=== PATIENT | female | born 1960 | race Caucasian/White ===

== ENCOUNTER 2018-01-02 14:02 | Emergency (ER) | payer OTHER, SELFPAY ==
[2018-01-02 14:04] VITALS: BP 168/89; PULSE 89; RESP 16; TEMP 37.4; O2SAT 100; BMI 22.9
--- NOTE | 2018-01-02 14:14 | CT_ITS ---
STUDY: CT ABDOMEN AND PELVIS WITHOUT CONTRAST REASON FOR EXAM: Female, 57 years old. Epigastric pain. RADIATION DOSAGE (If Supplied By Facility): CTDIvol = ( 6.96 ) mGy, DLP = ( 328.78 ) mGycm TECHNIQUE: Transaxial images were obtained from the dome of the diaphragm to the symphysis pubis without oral contrast, and without intravenous contrast. Sagittal and coronal images were reconstructed. Individualized dose optimization techniques were used for this CT. COMPARISON: None. FINDINGS: The visualized lung bases are unremarkable. The visualized portions of the heart are within normal limits. Normal liver. Normal gallbladder and extrahepatic biliary system. Normal spleen. Normal pancreas. Normal bilateral adrenal glands. Normal right kidney. Normal left kidney. Normal visualized stomach. Normal small intestine. Normal colon. There are surgical clips in the region of the appendix consistent with a prior appendectomy. Normal abdominal aorta. Normal inferior vena cava. Normal retroperitoneum. Normal urinary bladder. Normal abdominal wall. There are diffuse degenerative changes of the visualized lumbar spine. CT/Abdomen/Pelvis without Cont IMPRESSION: No acute intra-abdominal process. Electronically Signed: Kathrine Carmichael MD at 15:22 EDT Tel , Service support ,
[2018-01-02 14:18] VITALS: BP 160/77; PULSE 92; RESP 20; TEMP 36.9; O2SAT 100
--- NOTE | 2018-01-02 14:34 | EKG12_ITS ---
Test Reason : AB PAIN Blood Pressure : / mmHG Vent. Rate : 075 BPM Atrial Rate : 075 BPM P-R Int : 140 ms QRS Dur : 092 ms QT Int : 408 ms P-R-T Axes : 074 060 056 degrees QTc Int : 455 ms Normal sinus rhythm Normal ECG Confirmed by SONIA MOYA, FAHEEM ([id number]), production editor ALLISON GANNON ([id number]) on 01/04/2018 1:32:36 PM Referred By: Confirmed By:FAHEEM SCOTT MD
[2018-01-02 14:46] LABS: Absolute Lymphocyte Count 1.78 X10^3/ul (0.83-4.51); Absolute Neutrophil Count 3.6 X10^3/uL (2.0-7.7); Basophil# 0.05 X10^3/uL; Basophil% 0.8 % (0-1); Eosinophil# 0.06 X10^3/uL; Hematocrit 43.3 % (37-47); Hemoglobin 14.9 g/dl (12.0-15.0); Lymphocyte # 1.78 X10^3/ul (4.0); Lymphocyte % 28.8 % (19-41); Mean Corp Hgb Conc 34.4 g/gl (32-36); Mean Corpuscular Hgb 31.8 pg (27.0-32.0); Mean Corpuscular Volume 92.3 fL (81-99); Mean Platelet Vol. 9.3 fl (6.2-12.0); Monocyte# 0.68 X10^3/uL; Neutrophil % 58.2 % (47-70); Platelet Count 339 K/mm3 (150-450); RBC Distribution Width CV 12.1 % (11.6-14.6); RBC Distribution Width SD 40.4 fl (35.1-43.9); Red Blood Count 4.69 M/mm3 (4.2-5.4); White Blood Count 6.2 K/mm3 (4.4-11.0)
[2018-01-02 14:50] LABS: POSITIVE COUNT NO; POSITIVE DIFFERENTIAL NO; POSITIVE MORPHOLOGY NO
--- NOTE | 2018-01-02 14:51 | ED.VISSUMM ---
- ER Visit Summary Date of Service: 01/02/18 Chief Complaint: [] Upper abdominal pain for over a week palpitations History of Present Illness: The patient is a 57 F [] she reports really no past medical history she indicates for about a week she has had upper abdominal discomfort when she gets the pain she feels palpitations feels a pressure in her epigastric area nothing makes the pain better or worse, she was seen at an [facility] emergency department about 1 week to 10 days ago the workup that was unremarkable, she felt her family physician there was some concern she might be suffering from stress she started on Xanax, the persistence of this pressure since that occurred and began, today she had a second intensification of the pressure she felt as if her heart was racing the Xanax did not help and she came to the emergency department. She has had nausea but no vomiting no fever no cough no chest pain abdominal abdominal pain otherwise, normal bowel bladder habits. No leg edema she has no history of ME PE or DVT or other GI elements, This report 30 years ago she was diagnosed with her pancreatitis or an ulcer She is very healthy she indicates she can exert herself quite heavily and never gets abdominal pain or chest pain or palpitations Physical Examination: [] Her vital signs are within normal range is temperature of 99 she points to the epigastric area as a focus of her pain head neck chest unremarkable the lungs are clear the abdomen soft there is a vague discomfort to the epigastric area and urban guarding organomegaly the back upper lower extremities unremarkable pulses are symmetric in heart tones are normal lungs are clear neurologically she is awake moving all 4 she indicates she does not feel as if she is under stress she does not feel nervous Test Results: [] Emergency Department Course and Treatment: [] The patient's lab studies and CT abdomen UA are all generally unremarkable please see those reports on reevaluation she remained stable here in the department EKG shows a sinus rhythm she said really no recurrence of explained to this pressure in the epigastric area is unexplained she has had it for over a week there is no signs of elevation of any of the cardiac enzymes normal EKG normal lab studies and CT, she has no her history of exertional chest pain angina CAD Is comfortable discharge home, we will start her on antacid Prilosec bland diet recommended she follow back up with her family physician for further management and to return for change in symptoms and she will do so Treatment Plan: [] Disposition: [] Home stable Impression: [] Epigastric pressure for a week etiology unclear This note was generated with [employer] dictation software. It may contain incorrect words, spelling, and punctuation that were not noted in review of the chart prior to signing ED Disposition - Plan for ED Patient: Chief Complaint: Abd Pain Referrals: Jennifer Pittman MD [Primary Care Provider] -
[2018-01-02 14:54] LABS: Bacteria 0 SEEN /hpf (None Seen); Mucous, Urine 0 SEEN /hpf (<or=2+); Red Blood Cells-Urine 0 SEEN /hpf (0-5); White Blood Cells 0 SEEN /hpf (0-5)
[2018-01-02 15:03] LABS: Color, Urine Yellow (Yellow); Glucose, Dipstick Normal (Normal); Ketone-Dipstick 50 mg/dl (Negative); Leukocyte Esterase-Dipstick 25 /ul (Negative); Nitrite-Dipstick Negative (Negative); Occult Blood-Urine Negative /ul (Negative); Protein-Dipstick Negative (Negative); Urine Bilirubin Dipstick Negative (Negative); Urine Clarity Clear (Clear); Urine Urobilinogen Normal (Normal)
[2018-01-02 15:08] LABS: AST(SGOT) 16 U/L (15-37); Alanine Aminotransfer ALT/SGPT 23 U/L (13-56); Albumin, Serum 4.5 g/dL (3.2-5.0); Alkaline Phosphatase 91 U/L (45-117); Anion Gap 10 (5-15); BUN 13 mg/dL (7-18); BUN/Creat Ratio 13.6 RATIO (10-20); Bilirubin, Direct 0.16 mg/dL (0.00-0.30); Calcium,Total 9.2 mg/dL (8.5-10.1); Chloride 105 mmol/L (98-107); Creatinine, Serum 0.96 mg/dL (0.55-1.02); EST Glomerular Filtration Rate 64 mL/min (>60); Est Glom Filt Rate - Afr Amer 77 mL/min (>60); Estimated Creatinine Clearance 64.44 ml/min; Globulin 4.1 g/dL (2.2-4.2); Glucose 98 mg/dL (74-106); Lipase 221 U/L (73-393); Potassium 3.2 mmol/L (3.5-5.1); Protein, Total 8.6 g/dL (6.4-8.2); Sodium Level 138 mmol/L (136-145)
[2018-01-02] MEDS: Ondansetron 4 MG/2 ML Vial IV (15:12)
[2018-01-02 15:20] LABS: Squamous Epithelial Cells - UA 0-5 SEEN /hpf (5-10)
[2018-01-02] MEDS: morphine 8 MG/ML Syringe IV (15:25)
[2018-01-02] MEDS: 0.9% Normal Saline 1,000 ML 125 ML IV (15:26)
--- NOTE | 2018-01-02 15:43 | ED.DEP ---
ED Disposition - Plan for ED Patient: Chief Complaint: Abd Pain Instructions: ED Abdominal Pain Unkn Cause, ED PUD Vs Gastritis Prescriptions: Omeprazole [Prilosec] 20 mg PO DAILY #30 cap Referrals: Jennifer Pittman MD [Primary Care Provider] -
== END 2018-01-02 16:24 | disposition home or self-care (01) ==
PROVIDERS: Emergency Provider Emergency Medicine; Family Provider Internal Medicine; PCP Internal Medicine
DX: R10.9 Unspecified abdominal pain (principal); R05 Cough
CPT/HCPCS: 74176; 80048; 80076; 81001; 83690; 84484; 85025; 93005; 96361; 96374; 96375; 99283; J2405

== ENCOUNTER 2018-01-06 09:13 | Emergency (ER) | payer OTHER, SELFPAY ==
[2018-01-06 09:14] VITALS: BP 152/83; PULSE 87; RESP 22; TEMP 36.4; O2SAT 98; BMI 23.8
--- NOTE | 2018-01-06 09:22 | ED.DCSUM_ITS ---
- ER Visit Summary Date of Service: 01/06/18 Chief Complaint: Chest pain/epigastric pain History of Present Illness: The patient is a 57 F who has lower chest pain and epigastric pain. She states it started today. She was getting fasting blood glucose performed at the [facility] outpatient facility. She then developed a squeezing and tightness in her epigastric area. She states she does feel associated shortness of breath with it. Initially it was a 10 out of 10 but after EMS administration of aspirin is now doing a 6 out of 10. She was seen here last week for the same symptoms. She states that they went away since then but returned this morning. She had a negative CT and laboratories at that time. She was placed on Prilosec. Physical Examination: Vital signs reviewed. HEENT exam unremarkable. Heart is regular rate and rhythm without murmurs. Lungs are clear to auscultation. Abdomen is soft epigastric tenderness to palpation. Extremities reveal no edema. Skin exam normal. Neurologic exam normal. Test Results: EKG is sinus rhythm with a rate of 92. No ST changes. Labs are unremarkable Emergency Department Course and Treatment: Patient was given aspirin by EMS. I gave her a GI cocktail and she is starting to feel better. At one point she stated that she was dizzy and she could not walk to the bathroom so she is the bedside commode. I then reevaluated her after this and she states that she feels better. I will add Carafate to her Prilosec. This could be an ulcer. However this could be anxiety related. The patient will need follow-up with her PCP Treatment Plan: [] Disposition: Discharge Impression: Epigastric abdominal pain This note was generated with [employer] dictation software. It may contain incorrect words, spelling, and punctuation that were not noted in review of the chart prior to signing ED Disposition - Plan for ED Patient: Chief Complaint: Chest Pain Referrals: Jennifer Pittman MD [Primary Care Provider] -
[2018-01-06 09:35] LABS: Absolute Lymphocyte Count 0.93 X10^3/ul (0.83-4.51); Absolute Neutrophil Count 2.6 X10^3/uL (2.0-7.7); Basophil# 0.03 X10^3/uL; Basophil% 0.8 % (0-1); Eosinophil# 0.06 X10^3/uL; Eosinophils% 1.5 % (0-5); Hematocrit 44.2 % (37-47); Hemoglobin 14.7 g/dl (12.0-15.0); Lymphocyte # 0.93 X10^3/ul (4.0); Lymphocyte % 23.5 % (19-41); Mean Corp Hgb Conc 33.3 g/gl (32-36); Mean Corpuscular Hgb 31.3 pg (27.0-32.0); Mean Corpuscular Volume 94.2 fL (81-99); Mean Platelet Vol. 9.1 fl (6.2-12.0); Monocyte# 0.31 X10^3/uL; Monocyte% 7.8 % (0-10); Neutrophil # 2.63 X10^3/uL (2.7-7.7); Neutrophil % 66.4 % (47-70); POSITIVE COUNT NO; POSITIVE DIFFERENTIAL NO; POSITIVE MORPHOLOGY NO; Platelet Count 303 K/mm3 (150-450); RBC Distribution Width CV 12.4 % (11.6-14.6); RBC Distribution Width SD 42.5 fl (35.1-43.9); Red Blood Count 4.69 M/mm3 (4.2-5.4)
[2018-01-06 09:51] LABS: ALB/GLOB Ratio 1.2 RATIO (0.9-2.4); AST(SGOT) 15 U/L (15-37); Alanine Aminotransfer ALT/SGPT 23 U/L (13-56); Albumin, Serum 4.4 g/dL (3.2-5.0); Alkaline Phosphatase 84 U/L (45-117); Anion Gap 10 (5-15); BUN 12 mg/dL (7-18); Calcium,Total 9.4 mg/dL (8.5-10.1); Chloride 105 mmol/L (98-107); Creatinine, Serum 1.09 mg/dL (0.55-1.02); EST Glomerular Filtration Rate 55 mL/min (>60); Est Glom Filt Rate - Afr Amer 66 mL/min (>60); Estimated Creatinine Clearance 56.75 ml/min; Globulin 3.8 g/dL (2.2-4.2); Glucose 158 mg/dL (74-106); Lipase 332 U/L (73-393); Potassium 3.8 mmol/L (3.5-5.1); Protein, Total 8.2 g/dL (6.4-8.2); Sodium Level 142 mmol/L (136-145)
--- NOTE | 2018-01-06 10:18 | ED.DEP ---
ED Disposition - Plan for ED Patient: Disposition: Home or Assisted Living Chief Complaint: Chest Pain Instructions: ED Epigastric Pain UKO Prescriptions: Sucralfate [Carafate] 1 gm PO 4X/DAY #60 tab Referrals: Jennifer Pittman MD [Primary Care Provider] -
[2018-01-06 11:22] VITALS: BP 124/69; PULSE 78; RESP 18; O2SAT 96
== END 2018-01-06 11:37 | disposition home or self-care (01) ==
PROVIDERS: Emergency Provider Emergency Medicine; Family Provider Internal Medicine; PCP Internal Medicine
DX: R10.13 Epigastric pain (principal); J45.909 Unspecified asthma, uncomplicated; R07.9 Chest pain, unspecified; R06.00 Dyspnea, unspecified
CPT/HCPCS: 80053; 83690; 84484; 85025; 93005; 99285; J7030; A4216

== ENCOUNTER 2018-01-10 10:26 | Emergency (ER) | payer OTHER, SELFPAY ==
[2018-01-10 10:30] VITALS: BP 170/95; PULSE 95; RESP 13; TEMP 36.9; O2SAT 100; BMI 24.5
--- NOTE | 2018-01-10 10:49 | ED.VISSUMM ---
- ER Visit Summary Date of Service: 01/10/18 Chief Complaint: Abdominal pain History of Present Illness: The patient is a 57 F who presents with epigastric abdominal pain that has been intermittent for the past 2 weeks. Patient states the pain became worse again today. Patient describes the pain as a pressure over the epigastric area. Patient states the pain radiates into her back. Patient describes the pain in her back as sharp. Patient denies any nausea or vomiting. Patient states she did have an episode of diarrhea today. Patient denies any melena or hematochezia. Patient is been seen 2 other times for this in the past 2 weeks in the emergency department. Patient was started on Prilosec and Carafate. Patient states that her pain does not come on with food. Patient states nothing seems to make it better or worse. Patient states she has been unable to follow-up with her primary care physician yet. Patient states she has an appointment tomorrow with her primary care physician. Physical Examination: Vital signs are stable. Patient is afebrile. Patient is in no acute distress. Oral mucosa is pink and moist. Neck is supple. Trachea is midline. There is no JVD noted. Heart was regular rate and rhythm. Lungs are clear and equal bilateral. There is good respiratory effort noted. Abdomen is soft. Bowel sounds are normal. There is diffuse tenderness but worse over the epigastric area. There is no rebound or guarding noted. Cranial nerves II through XII are intact. There are no focal motor or sensory deficits noted. The remaining physical exam is within normal limits. Test Results: CBC, comprehensive metabolic profile, lipase, and urinalysis were obtained were all within normal limits. Emergency Department Course and Treatment: Patient was given a GI cocktail and Ativan here in the emergency department. Patient felt better on reevaluation. Patient was instructed to follow-up with her primary care physician tomorrow as scheduled. Patient and understood and were agreeable with the plan. All questions were answered. Disposition: Discharge home Impression: Abdominal pain This note was generated with [employer] dictation software. It may contain incorrect words, spelling, and punctuation that were not noted in review of the chart prior to signing ED Disposition - Plan for ED Patient: Disposition: Home or Assisted Living Chief Complaint: Abd Pain Diagnosis: Epigastric abdominal pain of unknown etiology Instructions: ED Abdominal Pain Unkn Cause Referrals: Jennifer Pittman MD [Primary Care Provider] -
[2018-01-10] MEDS: Morphine 4 MG/ML Syringe IV (10:53)
[2018-01-10] MEDS: 0.9% Normal Saline 1,000 ML 1000 ML IV (10:53)
[2018-01-10] MEDS: Ondansetron 4 MG/2 ML Vial IV (10:54)
[2018-01-10 10:57] LABS: Bacteria 0 SEEN /hpf (None Seen); Mucous, Urine 0 SEEN /hpf (<or=2+); Red Blood Cells-Urine 0 SEEN /hpf (0-5); Squamous Epithelial Cells - UA 0 SEEN /hpf (5-10); White Blood Cells 0 SEEN /hpf (0-5)
[2018-01-10 10:59] LABS: Color, Urine Straw (Yellow); Glucose, Dipstick Normal (Normal); Ketone-Dipstick Negative (Negative); Leukocyte Esterase-Dipstick Negative /ul (Negative); Nitrite-Dipstick Negative (Negative); Occult Blood-Urine Negative /ul (Negative); Protein-Dipstick Negative (Negative); Urine Bilirubin Dipstick Negative (Negative); Urine Clarity Clear (Clear); Urine Urobilinogen Normal (Normal)
[2018-01-10 11:01] LABS: Absolute Lymphocyte Count 0.97 X10^3/ul (0.83-4.51); Absolute Neutrophil Count 2.8 X10^3/uL (2.0-7.7); Basophil# 0.06 X10^3/uL; Basophil% 1.4 % (0-1); Eosinophil# 0.07 X10^3/uL; Eosinophils% 1.6 % (0-5); Lymphocyte # 0.97 X10^3/ul (4.0); Lymphocyte % 22.4 % (19-41); Mean Corpuscular Hgb 31.8 pg (27.0-32.0); Mean Corpuscular Volume 93.4 fL (81-99); Mean Platelet Vol. 9.2 fl (6.2-12.0); Monocyte# 0.47 X10^3/uL; Monocyte% 10.9 % (0-10); Neutrophil # 2.75 X10^3/uL (2.7-7.7); Neutrophil % 63.5 % (47-70); Platelet Count 328 K/mm3 (150-450); RBC Distribution Width CV 12.2 % (11.6-14.6); Red Blood Count 5.03 M/mm3 (4.2-5.4); White Blood Count 4.3 K/mm3 (4.4-11.0)
[2018-01-10 11:02] LABS: POSITIVE COUNT NO; POSITIVE DIFFERENTIAL NO; POSITIVE MORPHOLOGY NO
[2018-01-10 11:16] VITALS: BP 159/83; PULSE 93; RESP 22; O2SAT 100
[2018-01-10 11:22] LABS: ALB/GLOB Ratio 1.1 RATIO (0.9-2.4); AST(SGOT) 17 U/L (15-37); Alanine Aminotransfer ALT/SGPT 22 U/L (13-56); Albumin, Serum 4.7 g/dL (3.2-5.0); Alkaline Phosphatase 95 U/L (45-117); Anion Gap 10 (5-15); BUN 11 mg/dL (7-18); BUN/Creat Ratio 10.8 RATIO (10-20); Calcium,Total 9.8 mg/dL (8.5-10.1); Chloride 107 mmol/L (98-107); Creatinine, Serum 1.02 mg/dL (0.55-1.02); EST Glomerular Filtration Rate 59 mL/min (>60); Est Glom Filt Rate - Afr Amer 71 mL/min (>60); Estimated Creatinine Clearance 60.65 ml/min; Globulin 4.3 g/dL (2.2-4.2); Glucose 104 mg/dL (74-106); Lipase 354 U/L (73-393); Potassium 3.5 mmol/L (3.5-5.1); Sodium Level 141 mmol/L (136-145)
[2018-01-10] MEDS: Mag Hydrox/Al Hydrox/Simeth 30 ML UDC PO (12:07)
[2018-01-10] MEDS: LORazepam 2 MG/ML Syringe 0.5 MG IV (12:08)
[2018-01-10 12:09] VITALS: BP 153/82; PULSE 75; RESP 18; O2SAT 98
[2018-01-10 14:26] VITALS: BP 135/72; PULSE 79; RESP 12; O2SAT 98
== END 2018-01-10 14:28 | disposition home or self-care (01) ==
PROVIDERS: Emergency Provider Emergency Medicine; Family Provider Internal Medicine; PCP Internal Medicine
DX: R10.13 Epigastric pain (principal); M54.9 Dorsalgia, unspecified; J45.909 Unspecified asthma, uncomplicated
CPT/HCPCS: 80053; 81001; 83690; 85025; 93005; 99285; J7030; A4216; J2405

== ENCOUNTER 2018-01-10 18:20 | Emergency (ER) | payer OTHER, SELFPAY ==
[2018-01-10 18:21] VITALS: BP 145/74; PULSE 100; RESP 22; TEMP 36.6; O2SAT 100; BMI 22.3
[2018-01-10] MEDS: 0.9% Normal Saline 1,000 ML 150 ML IV (18:42)
[2018-01-10] MEDS: Mag Hydrox/Al Hydrox/Simeth 30 ML UDC PO (18:42)
[2018-01-10 18:48] LABS: Absolute Lymphocyte Count 1.76 X10^3/ul (0.83-4.51); Absolute Neutrophil Count 3.5 X10^3/uL (2.0-7.7); Basophil# 0.03 X10^3/uL; Basophil% 0.5 % (0-1); Eosinophil# 0.06 X10^3/uL; Hematocrit 41.7 % (37-47); Hemoglobin 13.9 g/dl (12.0-15.0); Lymphocyte # 1.76 X10^3/ul (4.0); Lymphocyte % 29.5 % (19-41); Mean Corp Hgb Conc 33.3 g/gl (32-36); Mean Corpuscular Hgb 31.3 pg (27.0-32.0); Mean Corpuscular Volume 93.9 fL (81-99); Monocyte# 0.62 X10^3/uL; Monocyte% 10.4 % (0-10); Neutrophil % 58.6 % (47-70); Platelet Count 294 K/mm3 (150-450); RBC Distribution Width CV 12.4 % (11.6-14.6); RBC Distribution Width SD 42.8 fl (35.1-43.9); Red Blood Count 4.44 M/mm3 (4.2-5.4)
[2018-01-10 18:49] LABS: POSITIVE COUNT NO; POSITIVE DIFFERENTIAL NO; POSITIVE MORPHOLOGY NO
[2018-01-10 19:09] LABS: ALB/GLOB Ratio 1.2 RATIO (0.9-2.4); AST(SGOT) 15 U/L (15-37); Alanine Aminotransfer ALT/SGPT 21 U/L (13-56); Alkaline Phosphatase 76 U/L (45-117); Anion Gap 13 (5-15); BUN 11 mg/dL (7-18); BUN/Creat Ratio 10.7 RATIO (10-20); Calcium,Total 8.8 mg/dL (8.5-10.1); Chloride 108 mmol/L (98-107); Creatinine, Serum 1.03 mg/dL (0.55-1.02); EST Glomerular Filtration Rate 58 mL/min (>60); Est Glom Filt Rate - Afr Amer 71 mL/min (>60); Estimated Creatinine Clearance 60.06 ml/min; Globulin 3.4 g/dL (2.2-4.2); Glucose 123 mg/dL (74-106); Lipase 297 U/L (73-393); Potassium 3.7 mmol/L (3.5-5.1); Protein, Total 7.4 g/dL (6.4-8.2); Sodium Level 144 mmol/L (136-145)
[2018-01-10] MEDS: LORazepam 2 MG/ML Syringe 0.5 MG IV (19:15)
[2018-01-10 20:00] VITALS: BP 154/85; PULSE 80; RESP 14; O2SAT 97
--- NOTE | 2018-01-10 20:41 | ED.VISSUMM ---
- ER Visit Summary Date of Service: 01/10/18 Chief Complaint: Chest, epigastric pain History of Present Illness: The patient is a 57 F with a 2 week history of epigastric pain. This is her fourth visit to this emergency room for the same. This is her second visit today. Patient states that she gets epigastric pain followed by a tingling sensation from her feet of her body. She is scheduled to see her PCP tomorrow and a GI specialist at the end of the month. Patient has had prior blood work as well as abdominal CAT scans with no significant cause for her pain. Patient will sometimes improve with GI cocktail, but often does require anxiety medication. Patient reportedly was on Xanax at one time but had an episode while on Xanax so her nurse told her to stop it. She was also previously placed on Carafate but stopped it because she did not like the way it made her feel. Physical Examination: Vital signs unremarkable. Patient sitting upright in bed. She does appear anxious. Heart is regular rate and rhythm. Lung sounds are clear. Abdomen is soft with focal tenderness in the epigastric area. There is no guarding or rebound. Hypoactive bowel sounds are noted throughout. Test Results: I did review the workup from earlier today. EKG at this time is sinus at 99 with no sign of acute ischemia. CBC and chemistry studies unremarkable. LFTs and lipase normal. Troponin negative. Emergency Department Course and Treatment: Patient was given a GI cocktail with no improvement. She was given Ativan 0.5 mg IV. On repeat evaluation she is resting comfortably. She states that she still has a slight aching sensation in the epigastric area, but it is improved. I spoke with Dr. Hutchinson and patient is to call his office for close follow-up. Patient is given a home pack of Ativan and a short prescription as well as she states this worked better for her than Xanax. She has an appointment with her primary care physician at 430 tomorrow afternoon. Treatment Plan: [] Disposition: Discharge Impression: 1. Epigastric pain 2. Anxiety This note was generated with [employer] software. It may contain incorrect words, spelling, and punctuation that were not noted in review of the chart prior to signing ED Disposition - Plan for ED Patient: Disposition: Home or Assisted Living Chief Complaint: Chest Pain Instructions: ED Stress React, ED Epigastric Pain UKO Prescriptions: Lorazepam [Ativan] 0.5 mg PO TID PRN #10 tablet PRN Reason: Anxiety Referrals: Jennifer Pittman MD [Primary Care Provider] - Keep Kellie appointment Vishal Verma MD [STAFF PHYSICIAN] - As soon as possible
--- NOTE | 2018-01-10 20:41 | ED.DEP ---
ED Disposition - Plan for ED Patient: Disposition: Home or Assisted Living Chief Complaint: Chest Pain Instructions: ED Epigastric Pain UKO, ED Stress React Prescriptions: Lorazepam [Ativan] 0.5 mg PO TID PRN #10 tablet PRN Reason: Anxiety Referrals: Jennifer Pittman MD [Primary Care Provider] - Keep Kellie appointment Vishal Verma MD [STAFF PHYSICIAN] - As soon as possible
[2018-01-10] MEDS: LORazepam 0.5 MG Tablet PO (20:57)
[2018-01-10 20:58] VITALS: BP 144/97; PULSE 86; RESP 16; O2SAT 97
== END 2018-01-10 21:00 | disposition home or self-care (01) ==
PROVIDERS: Emergency Provider Emergency Medicine; Family Provider Internal Medicine; PCP Internal Medicine
DX: R10.13 Epigastric pain (principal); F41.9 Anxiety disorder, unspecified
CPT/HCPCS: 80053; 83690; 84484; 85025; 93005; 99284; J7030; A4216

== ENCOUNTER 2018-01-12 17:43 | Observation (INO) | payer OTHER, SELFPAY ==
[2018-01-12 18:12] VITALS: BMI 21.2
[2018-01-12 18:13] VITALS: PULSE 73
[2018-01-12 18:17] VITALS: BMI 21.3
[2018-01-12 18:20] VITALS: BP 143/70; PULSE 76; RESP 16; TEMP 36.9; O2SAT 100
[2018-01-12 18:22] VITALS: BP 145/92
[2018-01-12 18:59] VITALS: PULSE 72
[2018-01-12] MEDS: Lactated Ringers 1,000 ML 60 ML IV (19:03)
[2018-01-12 19:29] LABS: Absolute Lymphocyte Count 1.33 X10^3/ul (0.83-4.51); Absolute Neutrophil Count 3.4 X10^3/uL (2.0-7.7); Basophil# 0.05 X10^3/uL; Basophil% 0.9 % (0-1); Eosinophil# 0.13 X10^3/uL; Eosinophils% 2.4 % (0-5); Hematocrit 40.5 % (37-47); Hemoglobin 13.2 g/dl (12.0-15.0); Lymphocyte # 1.33 X10^3/ul (4.0); Lymphocyte % 24.7 % (19-41); Mean Corp Hgb Conc 32.6 g/gl (32-36); Mean Corpuscular Hgb 30.8 pg (27.0-32.0); Mean Corpuscular Volume 94.6 fL (81-99); Mean Platelet Vol. 9.2 fl (6.2-12.0); Monocyte% 9.3 % (0-10); Neutrophil # 3.38 X10^3/uL (2.7-7.7); Neutrophil % 62.7 % (47-70); Platelet Count 272 K/mm3 (150-450); RBC Distribution Width CV 12.2 % (11.6-14.6); RBC Distribution Width SD 41.9 fl (35.1-43.9); Red Blood Count 4.28 M/mm3 (4.2-5.4); White Blood Count 5.4 K/mm3 (4.4-11.0)
[2018-01-12 19:30] LABS: POSITIVE COUNT NO; POSITIVE DIFFERENTIAL NO; POSITIVE MORPHOLOGY NO
--- NOTE | 2018-01-12 19:51 | PCM.HP.BLA ---
History and Physical Date of Admission: 01/12/18 HISTORY AND PHYSICAL ? Kate Marin 1960 ? ? REFERRING PHYSICIAN: ~~[facility] ? CHIEF COMPLAINT: ~~Consult (Consult Epigastric pain) ? HPI: The patient is a 57 year old female with a complaint of epigastric pain, chest pain, and dizziness. ~The patient was in her usual state of health until the end of November, when she had an episode where she noted the onset of epigastric and chest pain which was then followed with a feeling of dizziness and some degree of numbness in her lower extremities and hands. ~She stated initially. ~The pain started. ~Then she felt her heart beating quickly and then she noted tingling in her fingers, toes and periorbital area and felt dizzy. ~She presented emergency department on December 27, 2017 of the [facility] with these complaints. ~She had noted 2 other episodes of this event in the past and this resolved on its own generally after a few minutes. ~~~The patient had a normal EKG, normal laboratory studies and was discharged to home. ? Since that time, the patient's noted nearly daily episodes of this same issue. ~At first she thought this was likely an anxiety attack, but the last few times this has happened. ~She did not have any anxious this or anxiety leading up to the onset of this epigastric and chest discomfort. ~This is happened approximately once per day. ~ ? The patient has now presented to [facility] emergency department with the same symptoms 4 times over the last week. ~Even after resolution of the dizziness, palpitations and chest pain, she still notes some epigastric discomfort. ~On all visits to the emergency department she has had negative laboratory studies, negative EKG and negative troponins when these were ordered. ~On September [address] scan of the abdomen and pelvis which demonstrated no specific abnormalities. ~of interest when discussing the patient's palpitations, she notes no exertional chest pain or palpitations when gardening or doing other more strenuous activities. ~More recently the symptoms of come on when she is resting and states she is not really feel any anxiety leading up to these events. ~She had been given Ativan as a prescription and when she had one of these events she took the Ativan and 15 minutes later the symptoms seemed to tomeka. ~She noticed that they have resolved in the past spontaneously also. ~The patient has an apple watch and reviewing her heart rate in the upper watch, her heart rate has gotten up to a listing of 180 bpm. ~She states this correlates with the time she had the onset of the symptoms. ? PAST?MEDICAL?HISTORY PAST MEDICAL HISTORY Diagnosis Date Asthma 2006 ? ? PAST?SURGICAL?HISTORY PAST SURGICAL HISTORY Procedure Laterality Date APPENDECTOMY ? 1997 ? ? CURRENT?MEDICATIONS ? Current Outpatient Prescriptions: pantoprazole DR (PROTONIX) 20 mg tablet Take 1 tablet by mouth daily before breakfast. Take on empty stomach, 1/2 hr before meal. LORazepam (ATIVAN) 0.5 mg tab Take 0.5 mg by mouth three times daily as needed. lidocaine viscous (XYLOCAINE) 2 % solution Mix with Mylanta 100ml then may take 1 teaspoon every 4 hours as needed budesonide-formoterol (SYMBICORT) 80-4.5 mcg/actuation inhaler Inhale 2 Puffs as instructed twice daily. albuterol HFA (VENTOLIN HFA) 90 mcg/actuation inhaler Inhale 2 Puffs as instructed every 6 hours as needed. multivitamin ORAL tablet Take one(1) tablet daily. COMPOUNDED PRESCRIPTION Nebulizer for home use. ~Dx: asthma bacitracin ophthalmic ophthalmic ointment Use 1 application in the right eye three times daily. (Patient not taking: Reported on 01/11/2018 ) ? No current facility-administered medications for this visit. ? ALLERGIES: Sucralfate ? PERSONAL HISTORY: SOCIAL?HISTORY Social History ~~Marital status: ~~~~~~~~~~~~Spouse name: Kumar ~~~~~~~~~~~~~ ~~Years of education: ~~~~~~~~~~~~~~~~Number of children: 2 ~~~~~~~~ ? Occupational History Occupation ~~~~~~~~~Employer ~~~~~~~~~~~Comment ~~~~~~~~~~~~ ~~~~~~~~~~~~~~~~~~~~[employer]* ? Social History Main Topics ~~Smoking status: Former Smoker ~~~~~~~~~~~~~~~~~~~~~~~~~~~~~~~~~~~~~~~~~~~~~~~~~~~~~~~~ ~~~~~Packs/day: 0.00 ~~~~~Years: 0.00 ~~~ ~~~~~Quit date: 01/13/1984 ~~Smokeless tobacco: Never Used ~~~~~~~~~~~~~~~~~~~ ~~Comment: Quit smoking 24 years ago ~~Alcohol use: Yes ~~~~~~~~~~4.5 oz/week ~~~~~Glasses of Wine (5oz): 3 per week ~~Drug use: No ~~~~~~~~~ ~~Sexual activity: Yes ~~~~~~~~~~~~~~Partners with: Male ~~~~~Comment: Vasectomy ? ? FAMILY HISTORY: FAMILY?HISTORY FAMILY HISTORY Problem Relation Age of Onset Diabetes Mother ? ? ~~~~Pre Diabetes Hearing Loss Father ? Emphysema Maternal Grandfather ? other (Lupus) Sister ? None Brother ? None Sister ? ? REVIEW OF SYMPTOMS: ~~The review of systems data was entered by the nurse and reviewed by me ? There are no exam notes on file for this visit. ? ~ PHYSICAL EXAMINATION: ? General: ~The patient is 57 year old female, well nourished, well hydrated in no acute distress. ~The patient is oriented to time, place, and person. ? VITALS: Blood pressure 158/82, pulse 88, height 172.7 cm (5' 8), weight 67 kg (147 lb 9.6 oz), last menstrual period 04/02/2010. ? HEENT: ~Normal cephalic, ataumatic, pupils are equally round, sclera are anicteric, mucous membranes are moist, oropharynx is clear. ~Neck has no masses, asymmetry or lymphadenopathy. ~Thyroid is unremarkable. ? Respiratory: ~Clear to auscultation and percussion. ~Normal respiratory excursion and pattern. ? Cardiac: ~Examination is regular rate and rhythm. ? Abdominal exam: ~Soft, nontender, ~with no palpable masses. ~No hepatosplenomegaly. ~No palpable hernias. ? Rectal exam: exam deferred ? Extremities: ~no clubbing, cyanosis or edema. ~No adenopathy. ? Other: ? ? LABORATORY VALUES: As Noted ? RADIOLOGIC STUDIES: ~As Noted ? Assessment ~ IMPRESSION: Epigastric pain, chest pain, palpitations, dizziness - atypical paroxysmal chest pain ? PLAN: ~~Clinically from a GI standpoint, this could be peptic ulcer disease and could be episodic esophageal spasms. ~I do plan to perform upper endoscopy. ~Given the fact that the patient is having these episodes paroxysmally on a nearly daily basis I feel its important to do endoscopy relatively promptly to rule out these abnormalities as a possibility. ~~We discussed the risks and benefits of the planned endoscopy. ~I have informed the patient that complications can occur including failure to complete the endoscopy and perforation. ~The patient had the opportunity to ask questions concerning the planned endoscopy. ~My staff has also explained the procedure to the patient in understandable terms and has given the patient printed material concerning the procedure. ~The patient freely consents to surgery. ? ? My other concern would be that this is new onset paroxysmal supraventricular tachycardia if in fact her apple watch is active with a heart rate of 180. ~Therefore admitted the patient to rest in the hospital with plans to place her on a cardiac care unit nurse to see if in these events do demonstrate this degree of tachycardia and if there is any other arrhythmias overnight. ~I spoke with Dr. Ming Cifuentes,~photovoltaic panel installer, who felt my plan was reasonable. ~In discussions we will also obtain an echocardiogram and a treadmill stress test to rule out occult cardiac disease. ? Diagnoses: (R10.13) Epigastric pain ~(primary encounter diagnosis) (R07.89) Other chest pain ? ? ? This note was partially generated using [employer] voice recognition system, and there may be some incorrect words, spellings, and punctuation that were not noted in checking the note before saving.~ ~ ? Vishal Verma MD
[2018-01-12 20:08] LABS: ALB/GLOB Ratio 1.1 RATIO (0.9-2.4); AST(SGOT) 12 U/L (15-37); Alanine Aminotransfer ALT/SGPT 20 U/L (13-56); Albumin, Serum 3.8 g/dL (3.2-5.0); Alkaline Phosphatase 73 U/L (45-117); Anion Gap 6 (5-15); BUN 10 mg/dL (7-18); BUN/Creat Ratio 12.1 RATIO (10-20); Chloride 106 mmol/L (98-107); Creatinine, Serum 0.83 mg/dL (0.55-1.02); EST Glomerular Filtration Rate 75 mL/min (>60); Est Glom Filt Rate - Afr Amer 91 mL/min (>60); Estimated Creatinine Clearance 76.28 ml/min; Globulin 3.4 g/dL (2.2-4.2); Glucose 86 mg/dL (74-106); Magnesium 2.2 mg/dL (1.6-2.6); Potassium 3.7 mmol/L (3.5-5.1); Protein, Total 7.2 g/dL (6.4-8.2); Sodium Level 139 mmol/L (136-145)
[2018-01-12] MEDS: Albuterol 2.5 MG/3 ML VIAL.NEB. INHALATION (20:28)
[2018-01-12] MEDS: Budesonide Respules 0.5 MG/2 ML AMPUL.NEB. INHALATION (20:29)
[2018-01-12 20:30] VITALS: PULSE 80; RESP 14
[2018-01-12 23:00] VITALS: PULSE 70
[2018-01-13] VITALS (16 sets, daily range): BP systolic 110–139; BP diastolic 60–84; PULSE 56–87; RESP 12–17; TEMP 36.4–36.9; O2SAT 94–100
--- NOTE | 2018-01-13 | IMM_PTH ---
PATIENT: TEDDY DORANTES LOC: [facility] U#:[id number] AGE/SX: 57/F ROOM: [facility] RE01/12/[address]: Dr. iVshal Vrema MD : 1960 BED: 1 DIS: 01/13/2018 SPEC #: [id number] RECD: 01/14/18 12:47 STATUS: SOUT REQ #: [id number] NAOMI: 01/13/18 00:[address]: Vishal Verma DEPT: IMMUNOHISTOCHEMISTRY RECD BY: Izzy Spear ENTERED: 01/14/18 12:48 SP TYPE: IMMUNO OTHR DR: MD Dr. Ming Garg MD Tissues: B - Stomach, NOS Procedures: H Pylori (initial) PHYSICIAN & INSTITUTION [facility] [id number] SPECIMEN INFORMATION: Tissue Source: B ? Antral biopsy Clinical Info: Epigastric pain Specimen Number: [id number] CPT code: 58555 METHODOLOGY: Deparaffinized sections of prefer/formalin-fixed tissue or PAP/DQ stained slides are incubated with monoclonal/polyclonal antibodies/oligonucleotide probes. Localization is made via biotin free immunoperoxidase method. Appropriate controls are performed and reacted as expected. Results on target cell population are indicated in the following table: RESULTS: ANTIBODY / CLONE RESULT Block B H Pylori (polyclonal) negative These tests were developed and their performance characteristics determined by [facility]. They may not have been cleared or approved by the U.S. Food and Drug Administration. The FDA has determined that such clearance or approval is not necessary. INTERPRETATION: B. Antral biopsy: Negative for Helicobacter pylori organisms. SJ:jessica 01/15/18
--- NOTE | 2018-01-13 | EGD_PTH ---
PATIENT: TEDDY DORANTES LOC: [facility] U#:[id number] AGE/SX: 57/F ROOM: [facility] RE01/12/[address]: Dr. Vishal Verma MD : 1960 BED: 1 DIS: 01/13/2018 SPEC #: [id number] RECD: 01/13/18 12:39 STATUS: DEIRDRE RELety #: [id number] NAOMI: 01/13/18 00:[address]: Vishal Verma DEPT: SURGICAL PATHOLOGY RECD BY: Shira Trejo ENTERED: 01/13/18 13:40 SP TYPE: EGD BIOPSY [facility] DR: MD Dr. Ming Garg MD Tissues: A - Jejunum, NOS B - Gastric mucous membrane C - Gastric mucous membrane D - Esophagus, NOS Procedures: Surgery Specimen Level IV HEADER OPERATION: EGD ([facility] [place]) PRE-OP DIAGNOSIS: Epigastric pain TISSUE SUBMITTED: A. Jejunum biopsy, B. Antral biopsy, C. GE junction biopsy, D. Mid esophagus biopsy MICROSCOPIC DIAGNOSIS A. Jejunum biopsy: A fragment of small intestinal mucosa, no pathologic diagnosis. B. Antral biopsy: Mild gastritis. C. GE junction, biopsy: Fragments of squamous epithelium, no pathologic diagnosis. D. Mid esophagus, biopsy: Fragment of squamous epithelium, no pathologic diagnosis. SJ:jessica 01/14/18 COMMENT B. The results of immunohistochemistry for Helicobacter pylori will be reported separately ([id number]). MICROSCOPIC DESCRIPTION Slides are reviewed. B. The specimen shows fragments of gastric mucosa with chronic inflammatory cell infiltrates in the lamina propria consisting of lymphocytes and plasma cells, consistent with mild chronic gastritis. GROSS DESCRIPTION A - Received in fixative is one container labeled with the patient's name and designated jejunum biopsy. The specimen consists of one irregular fragment of light harris soft tissue that measures 0.6 x 0.3 x 0.1 cm. The specimen is totally submitted in one cassette. B - Received in fixative is one container labeled with the patient's name and designated antral biopsy. The specimen consists of one irregular fragment of light harris soft tissue that measures 0.5 x 0.2 x 0.1 cm. The specimen is totally submitted in one cassette. C - Received in fixative is one container labeled with the patient's name and designated GE junction. The specimen consists of two irregular fragments of light harris soft tissue that in aggregate measure 0.3 x 0.2 x <0.1 cm. The specimen is totally submitted in one cassette. D - Received in fixative is one container labeled with the patient's name and designated mid esophagus biopsy. The specimen consists of one irregular fragment of light harris soft tissue that measures 0.7 x 0.5 x <0.1 cm. The specimen is totally submitted in one cassette. / AM:jessica 01/13/18 TC:3 CPT: 83668 x4
[2018-01-13 05:17] LABS: Absolute Neutrophil Count 2.6 X10^3/uL (2.0-7.7); Basophil# 0.05 X10^3/uL; Eosinophil# 0.17 X10^3/uL; Eosinophils% 3.5 % (0-5); Hematocrit 39.5 % (37-47); Hemoglobin 13.1 g/dl (12.0-15.0); Lymphocyte % 28.9 % (19-41); Mean Corp Hgb Conc 33.2 g/gl (32-36); Mean Corpuscular Hgb 31.6 pg (27.0-32.0); Mean Corpuscular Volume 95.4 fL (81-99); Mean Platelet Vol. 8.9 fl (6.2-12.0); Monocyte# 0.63 X10^3/uL; Neutrophil # 2.59 X10^3/uL (2.7-7.7); Neutrophil % 53.6 % (47-70); Platelet Count 272 K/mm3 (150-450); RBC Distribution Width CV 11.9 % (11.6-14.6); RBC Distribution Width SD 40.9 fl (35.1-43.9); Red Blood Count 4.14 M/mm3 (4.2-5.4); White Blood Count 4.8 K/mm3 (4.4-11.0)
[2018-01-13 05:20] LABS: POSITIVE COUNT NO; POSITIVE DIFFERENTIAL NO; POSITIVE MORPHOLOGY NO
[2018-01-13 05:27] LABS: Prothrombin Time (Protime)PT. 13.6 SECONDS (11.7-14.9)
[2018-01-13 05:28] LABS: Partial Thromboplast Time 25.2 Seconds (24.1-36.2)
[2018-01-13 05:29] LABS: Anion Gap 5 (5-15); BUN 9 mg/dL (7-18); BUN/Creat Ratio 10.8 RATIO (10-20); Chloride 107 mmol/L (98-107); Creatinine, Serum 0.83 mg/dL (0.55-1.02); EST Glomerular Filtration Rate 75 mL/min (>60); Est Glom Filt Rate - Afr Amer 90 mL/min (>60); Estimated Creatinine Clearance 76.28 ml/min; Glucose 97 mg/dL (74-106); Potassium 4.1 mmol/L (3.5-5.1); Sodium Level 143 mmol/L (136-145)
[2018-01-13] MEDS: 0.9% NaCl Peripheral Flush Adult/Peds IV (10:26)
--- NOTE | 2018-01-13 10:26 | NURSING ---
Reports feelings of tingling in her hands and feet that just started when she began to feel the upper chest discomfort. Patient states that this has happened to her in the past when she would begin to have abdominal spasms. Denies abdominal spasms. No shortness of breath noted. Laying in bed with eyes closed. VSS. Called for EKG.
--- NOTE | 2018-01-13 11:27 | NURSING ---
Called report to Chika in Endo.
--- NOTE | 2018-01-13 12:20 | PCM.OPRPT ---
Report of Operation Date of Procedure: 01/13/18 Pre-Operative Diagnosis: epigastric pain, chest pain Post-Operative Diagnosis: gastritis, small hiatal hernia Surgery/Procedure Performed:: EGD with biopsy pet house sitter: None Type of Anesthesia:: MAC Anesthesiologist: Christopher Rodney - ASA2 Specimen's removed: jejunal, gastric, distal esophagus, mid esopahgus Description of Procedure: The patient was brought to the endoscopy suite. Sign in was performed verifying patient, site, planned procedure, critical nursing information, the patient was monitored with cardiac, pulse oximetric, and blood pressure monitoring devices. Monitored anesthetic care was provided for sedation. Following IV sedation and after the oropharynx was sprayed with Cetacaine spray, a video gastroscope was inserted in the oropharynx and advanced down the esophagus without difficulty. The scope was advanced through the stomach, through the pylorus through the duodenum to the proximal jejunum. the jejunum was unremarkable. A biopsy was obtained for celiac. The duodenum appeared unremarkable. As the scope was withdrawn, there was noted to be irritation in the intertriginous stomach consistent with gastritis. There were a few small superficial erosions. Biopsies were obtained for H. pylori and pathology. Scope was retroflexed. The patient is small hiatal hernia. The esophagus appeared unremarkable. The patient tolerated the procedure well and was brought to recovery in stable condition
--- NOTE | 2018-01-13 12:43 | STRESSREP ---
Stress Test Report Exercise myocardial perfusion stress test. 57-year-old lady with a history of supraventricular tachyarrhythmia and palpitations. Stress protocol: Resting EKG demonstrates normal sinus rhythm with a rate of 87 bpm normal intervals and noted resting blood pressure 728/94 mmHg. The patient exercised according to regular Misael protocol for total duration of 9 minutes. Patient completed stage III of the Misael protocol the maximum heart rate attained was 171 bpm which was 105% of maximum predicted heart rate the maximum workload was 10.4 metabolic equivalents. At rest there were no ST or T-wave changes noticed ischemia peak exercise upsloping ST changes were noted with intermittent criteria for ischemia the resting blood pressure 728/94 with a peak blood pressure 180/84 rate pressure product was 29,500. Myocardial perfusion protocol. 11.5 mCi of technetium 99m sestamibi was injected at rest. Patient exercised according to regular Misael protocol for 9 minutes at peak exercise 33.5 mCi of technetium 99m sestamibi was injected stress images were obtained stress and rest images were reconstructed and compared in the short axis vertical long and horizontal long axis. Gated images were also obtained Perfusion SPECT analysis: Review of the stress images demonstrate normal uptake of tracer noted in all areas of the myocardium. The stress and rest images demonstrate no evidence of ischemia. No previous infarct is noted. Gated SPECT analysis: The gated ejection fraction is 70%. Conclusion: Normal exercise myocardial perfusion stress test at a high workload. Preserved ejection fraction. Excellent functional capacity. No arrhythmias noted.
--- NOTE | 2018-01-13 12:56 | PCM.CONS.C ---
Problem List (1) Chest pain Status: Acute (2) Palpitations Status: Acute (3) Tachycardia Status: Acute Reason for Consult Date of Consultation: 01/13/18 History of Present Illness: The patient is a 57 year old white female who is referred for evaluation of chest pain, palpitations, and tachycardia. She has no previously documented cardiovascular history. She states since in November she has been having episodes of epigastric discomfort which is been somewhat chronic and unrelenting as well as left upper chest discomfort which waxes and wanes. She has not noted any significant change in her respiratory status with these events. She has not necessarily complained of associated nausea or emesis or diaphoresis. She may have had palpitations at times but not consistently. There is been no near syncope or syncope. She does wear an Apple watch and states at times it records her heart rate is being markedly elevated. She has been evaluated in the [facility] emergency department for these episodes on multiple occasions. She states her cardiovascular evaluation based on blood test and ECGs have always been unremarkable. She states she was told that she was having panic attacks . She is now pending evaluation by Dr. Verma of general surgery with respect to possibility of gastrointestinal related issues based upon her ongoing symptoms and concerns of underlying epigastric tenderness to palpation with an upcoming EGD. In the interim based upon her concerns she has been evaluated by cardiology for any possible cardiovascular involvement. She has had cardiac rhythm monitoring which is been negative. Her ECGs have demonstrated sinus rhythm. During her hospitalization thus far she had recurrent symptoms. She was reassessed by the [facility] staff. She had no significant change in her cardiac rate or rhythm. A repeat ECG demonstrated sinus rhythm with no significant change. She has undergone evaluation with a transthoracic echocardiogram. The results are as noted below. Interpretation Summary Left ventricular systolic function is normal. The estimated ejection fraction is 60 %. Equivocal mitral valve prolapse. Mild diffuse mitral valve thickening. Trivial mitral valve insufficiency. Trivial tricuspid valve insufficiency. Right ventricular systolic pressure estimated to be 22 mmHg. Transmitral doppler flow suggestive of impaired relaxation of left ventricle She has also undergone evaluation with an exercise tolerance test/nuclear imaging study. The results are as noted below. Exercise myocardial perfusion stress test. 57-year-old lady with a history of supraventricular tachyarrhythmia and palpitations. Stress protocol: Resting EKG demonstrates normal sinus rhythm with a rate of 87 bpm normal intervals and noted resting blood pressure 728/94 mmHg. The patient exercised according to regular Misael protocol for total duration of 9 minutes. Patient completed stage III of the Misael protocol the maximum heart rate attained was 171 bpm which was 105% of maximum predicted heart rate the maximum workload was 10.4 metabolic equivalents. At rest there were no ST or T-wave changes noticed ischemia peak exercise upsloping ST changes were noted with intermittent criteria for ischemia the resting blood pressure 728/94 with a peak blood pressure 180/84 rate pressure product was 29,500. Myocardial perfusion protocol. 11.5 mCi of technetium 99m sestamibi was injected at rest. Patient exercised according to regular Misael protocol for 9 minutes at peak exercise 33.5 mCi of technetium 99m sestamibi was injected stress images were obtained stress and rest images were reconstructed and compared in the short axis vertical long and horizontal long axis. Gated images were also obtained Perfusion SPECT analysis: Review of the stress images demonstrate normal uptake of tracer noted in all areas of the myocardium. The stress and rest images demonstrate no evidence of ischemia. No previous infarct is noted. Gated SPECT analysis: The gated ejection fraction is 70%. Conclusion: Normal exercise myocardial perfusion stress test at a high workload. Preserved ejection fraction. Excellent functional capacity. No arrhythmias noted. [] Past Medical History Allergies/Adverse Reactions: Allergies sucralfate Allergy (Verified 01/12/18 18:04) mental status change and shortness of breath Home Medications: Ambulatory Orders Medication Instructions Recorded Budesonide/Formoterol 80-4.5 1 puff INHALATION DAILY 01/10/18 [Symbicort 80-4.5 Mcg Inhaler] Lorazepam [Ativan] 0.5 mg PO TID PRN #10 tablet 01/10/18 Albuterol Sulfate [Ventolin Hfa] 1 - 2 puff INHALATION BID PRN 01/12/18 Pantoprazole Sodium [Protonix] 20 mg PO DAILY 01/12/18 Lives: Spouse/ Significant Other Smoking Status: Never smoker Alcohol: Occasional Drugs: None Review of Systems - Review of Systems General: Denies: Fever, Night Sweats, Fatigue Cardiovascular: Reports: Chest Discomfort, Chest Discomfort at Rest. Denies: Shortness of Breath, Orthopnea, PND, Peripheral Edema, Palpitations, Lightheadedness, Dizziness, Near Syncope, Syncope Respiratory: Denies: Cough, Sputum Production, Hemoptysis Gastrointestinal: Reports: Epigastric Discomfort, Abdominal Discomfort. Denies: Hematemesis, Hematochezia, Melena Genitourinary: Denies: Dysuria, Hematuria Skin: Denies: Rash Subjectve: This is a 57-year-old thin healthy-appearing white female who appears to be resting comfortably in no acute distress. Objective: Vital Signs Temp Pulse Resp BP Pulse Ox 98.0 F 87 16 117/80 99 01/13/18 12:40 01/13/18 12:40 01/13/18 12:40 01/13/18 12:40 01/13/18 12:40 Oxygen Delivery Method Room Air Weight: 144 lb 2.917 oz Body Mass Index (BMI) 21.2 Intake and Output for Last 24 Hours 01/11/18 01/12/18 01/13/18 23:59 23:59 23:59 Intake Total 1234.1 / 1234.1 Balance 1234.1 / 1234.1 General: Awake, Alert, Oriented x 3, Cooperative, No Acute Distress HEENT: Atraumatic, Normocephalic, PERRL, EOMI, Sclera Non Icteric Oral: Moist Mucosa Neck: Supple, Good ROM, No JVD Lungs: Clear to auscultation Cardiovascular: Regular Rhythm, Normal S1, Normal S2 Vascular: No Carotid Bruits, R Femoral Artery Bruit, L Femoral Artery Bruit Abdomen: Bowel Sounds Present, Soft, - - Epigastric discomfort/tenderness on evaluation Extremities: No Cyanosis, No Clubbing, No edema Neurological: No Focal Motor or Sensory Deficit Psych/Mental Status: Appropriate, Normal Affect 01/12/18 19:10: WBC 5.4, RBC 4.28, Hgb 13.2, Hct 40.5, MCV 94.6, MCH 30.8, MCHC 32.6, RDW 12.2, RDW Differential 41.9, Plt Count 272, MPV 9.2, Immature Gran % (Auto) 0.000, Neut % (Auto) 62.7, Lymph % (Auto) 24.7, Glasscock % (Auto) 9.3, Eos % (Auto) 2.4, Baso % (Auto) 0.9, Absolute Neuts (auto) 3.4, Total Counted Not Reportable 01/12/18 19:10: Sodium 139, Potassium 3.7, Chloride 106, Carbon Dioxide 27.0, Anion Gap 6, BUN 10, Creatinine 0.83, Est GFR (MDRD) Af Amer 91, Est GFR (MDRD) Non-Af 75, BUN/Creatinine Ratio 12.1, Glucose 86, Calcium 9.0, Phosphorus 3.0, Magnesium 2.2, Total Bilirubin 0.40 01/13/18 05:00: WBC 4.8, RBC 4.14 L, Hgb 13.1, Hct 39.5, MCV 95.4, MCH 31.6, MCHC 33.2, RDW 11.9, RDW Differential 40.9, Plt Count 272, MPV 8.9, Immature Gran % (Auto) 0.000, Neut % (Auto) 53.6, Lymph % (Auto) 28.9, Glasscock % (Auto) 13.0 H, Eos % (Auto) 3.5, Baso % (Auto) 1.0, Absolute Neuts (auto) 2.6, Total Counted Not Reportable 01/13/18 05:00: PT 13.6, INR 1.0, APTT 25.2 01/13/18 05:00: Sodium 143, Potassium 4.1, Chloride 107, Carbon Dioxide 31.0, Anion Gap 5, BUN 9, Creatinine 0.83, Est GFR (MDRD) Af Amer 90, Est GFR (MDRD) Non-Af 75, BUN/Creatinine Ratio 10.8, Glucose 97, Calcium 9.0 Rhythm: sinus rhythm EKG: NSR ECHO: as noted above Stress Test: as noted above Assessment/Plan 1. Chest pain The patient does have chest pain. It appears somewhat atypical for classic cardiovascular disease with respect pericardial disease or underlying coronary artery disease. She is undergone noninvasive evaluation. Thus far this has been unremarkable for any acute cardiovascular findings. It would not be unreasonable to obtain a chest x-ray to further evaluate her thoracic cavity for any obvious etiologies may be contributing to this. Otherwise it does not appear she requires additional cardiovascular diagnostic studies, especially invasive studies, at this time barring a change in her clinical status, other objective findings, or potentially ongoing issues without other explanations still raising a concern of the possibility of underlying CAD and associated symptoms. In the interim she is undergoing gastrointestinal evaluation for possible GI components radiating to her chest leading to her symptoms. 2. Palpitations At the present time she does have intermittent palpitations. It is unclear whether this truly represents underlying ectopy or dysrhythmias. This can be further assessed, if no cardiac dysrhythmias were found while she is at [facility], with an outpatient ambulatory event monitor and attempt to correlate symptoms with underlying rates and rhythms. 3. Tachycardia Apparently there have been reports of a documented elevated heart rate based upon her Apple watch recordings. She has not had similar type findings while she has been the [facility]. Again if there are ongoing concerns this can be further assessed with an outpatient ambulatory event monitor. 4. Femoral artery bruits She does have bilateral femoral artery bruits. Is unclear whether this represents a normal physiologic finding for her as she is a thin person versus underlying peripheral vascular disease. This can be further assessed with noninvasive studies such as a lower extremity arterial duplex study, etc. Comment: The patient's case has been discussed and reviewed with the patient and Dr. Verma. This note was generated with [employer] dictation software. It may contain incorrect words, spelling, and punctuation that were not noted in checking the note before signing.
[2018-01-13] MEDS: Albuterol 2.5 MG/3 ML VIAL.NEB. INHALATION (13:22)
[2018-01-13] MEDS: Pantoprazole Sodium 20 MG Tablet PO (15:25)
--- NOTE | 2018-01-13 16:29 | PCM.DC ---
- Discharge Diagnoses Current Active Problems: Current Active and Chronic Problems Chest pain (Acute) Palpitations (Acute) Tachycardia (Acute) You will use the following diet at home:: No restrictions Discharge Activity: No Restrictions Call your doctor if you observe: Shortness of breath, Dizziness, Chest pain Allergies/Adverse Reactions: Allergies sucralfate Allergy (Verified 01/12/18 18:04) mental status change and shortness of breath Medications to take at Discharge Budesonide/Formoterol 80-4.5 [Symbicort 80-4.5 Mcg Inhaler] 1 puff INHALATION DAILY 01/10/18 Lorazepam [Ativan] 0.5 mg PO TID PRN #10 tablet 01/10/18 Albuterol Sulfate [Ventolin Hfa] 1 - 2 puff INHALATION BID PRN 01/12/18 Omeprazole [Prilosec] 40 mg PO BID 30 Days cap 01/13/18 The following prescriptions were given: Omeprazole [Prilosec] 40 mg PO BID 30 Days cap Primary Care Physician: Jennifer Pittman MD [Primary Care Provider] - Test Results: Test results from this visit will be discussed in further detail at your follow-up appointment, if applicable. Please Follow Up With: Vascular Lab Please Follow Up With: Cardiovascular Services Please Follow Up With: Vishal Verma MD When: 8 days
== END 2018-01-13 14:22 | disposition home or self-care (01) ==
PROVIDERS: Admitting Provider Surgery; Family Provider Internal Medicine; PCP Internal Medicine; Visit Provider Surgery
PROC: 0DJ08ZZ Inspection of Upper Intestinal Tract, Via Natural or Artificial Opening Endoscopic (ICD-10-PCS; CPT 43235; principal; 2018-01-13 12:55)
DX: R07.89 Other chest pain (principal); R00.2 Palpitations; R10.13 Epigastric pain; K44.9 Diaphragmatic hernia without obstruction or gangrene; K29.70 Gastritis, unspecified, without bleeding; R42 Dizziness and giddiness; R20.0 Anesthesia of skin; R20.2 Paresthesia of skin; Z79.899 Other long term (current) drug therapy; Z79.51 Long term (current) use of inhaled steroids; Z87.891 Personal history of nicotine dependence; R00.0 Tachycardia, unspecified; R09.89 Other specified symptoms and signs involving the circulatory and respiratory systems
CPT/HCPCS: 43239; 36415; 71046; 78452; 80048; 80053; 83735; 84100; 85025; 85610; 85730; 88305; 88342; 93005; 93017; 93306; 94640; 97802; 99218; A9500; J7040; J7120; A4216; G0378; G0379

== ENCOUNTER → 2018-01-19 12:57 | Outpatient (CLI) | payer OTHER, SELFPAY ==
--- NOTE | 2018-01-19 18:58 | LEAS ---
Arterial Study - Arterial Study Arterial Study: Bilateral lower extremity noninvasive arterial exam at rest Right lower extremity The right PT and DP ankle-brachial indices at rest are 1.031.14 respectively. The right posterior tibial and dorsalis pedis Doppler waveforms are triphasic. Volume pulse recordings demonstrate normal waveforms and the ankle waveforms well maintained. Digital waveforms moderately depressed. Left lower extremity The left PT and DP ankle-brachial indices at rest are 1.161.04 respectively with triphasic Doppler waveforms. Volume pulse recordings again demonstrate normal waveforms in the low thigh and calf area. The ankle waveforms are nicely maintained. Digital waveforms are moderately depressed. Impression: Normal bilateral extremity ABIs and Doppler waveforms at rest. These would suggest normal large vessel lower extremity flow. Slightly diminished bilateral digital waveforms possibly consistent with distal small vessel disease or temperature dependent. Clinical correlation would be appropriate. Jacob Cardenas M.D., F.A.C.S.
== END ==
PROVIDERS: Family Provider Internal Medicine; PCP Internal Medicine; Visit Provider Internal Medicine Cardiovascular Disease
DX: R09.89 Other specified symptoms and signs involving the circulatory and respiratory systems (principal); R00.0 Tachycardia, unspecified; R00.2 Palpitations
CPT/HCPCS: 93923

== ENCOUNTER 2019-01-28 18:28 | Emergency (ER) | payer OTHER, SELFPAY ==
[2019-01-28 18:30] VITALS: BP 155/87; PULSE 88; RESP 16; TEMP 36.5; O2SAT 100; BMI 21.9
--- NOTE | 2019-01-28 19:27 | ED.VIS.GI ---
History of Present Illness Chief Complaint: Anxiety Informant: Patient - Abdominal Pain/Flank Pain Onset: Days - 3 Timing: Intermittent Quality: Aching Location: Epigastric, LUQ Current Severity: Moderate Maximum Severity: Moderate Worsened by: Nothing Relieved by: Nothing - Nausea/Vomiting/Emesis GI Symptom: Negative for: Nausea, Vomiting - Diarrhea/Melena/Hematochezia GI Symptom: Negative for: Diarrhea, Melena, Hematochezia Associated Symptoms: Negative for: Dysuria, Frequency, Hematuria, Urgency Narrative: Patient starts by saying she has been having anxiety/panic attacks that let her know she has pain. In reality, she is actually experiencing pain, it is in her epigastrium/left upper quadrant. She then quickly develops anxiety in addition to that, but she is treating that successfully with Ativan. Abdominal pain is intermittent and seems random in the last 3 days. She has a history of hiatal hernia and does not take daily preventative medication for GERD. She denies any melena or vomiting/hematemesis. - Past Medical History (1) Hiatal hernia Status: Chronic (2) Anxiety Status: Chronic Past Medical History - Allergies and Home Meds Allergies/Adverse Reactions: Allergies No Known Allergies Allergy (Verified 01/28/19 18:48) Primary Care Physician: Jennifer Pittman MD [Primary Care Provider] - Lives: Spouse/ Significant Other Smoking Status: Former smoker Alcohol: None Review of Systems General: Denies: Chills, Fever, Sweats Eyes: Denies: Visual changes - bilaterally, Diplopia ENT: Denies: Rhinorrhea, Sore throat Cardiovascular: Denies: Chest pain, Palpitations Respiratory: Denies: Dyspnea, Cough, Dyspnea on exertion Gastrointestinal: Reports: Abdominal pain. Denies: Nausea, Vomiting, Diarrhea, Melena, Hematochezia Genitourinary: Denies: Dysuria, Hematuria, Frequency Musculoskeletal: Denies: Back pain, Extremity Pain Skin: Denies: Rash, Wounds Neurological: Denies: Headache, Weakness, Numbness Psych: Reports: Anxiety. Denies: Suicidal thoughts Physical Exam Vital Signs/Narrative: Vital Signs Temp Pulse Resp BP Pulse Ox 01/28/19 18:30 97.7 F L 88 16 155/87 H 100 Inital Vital Signs reviewed: Yes General: Well nourished, Well developed, No Acute Distress Head: Normocephalic, Atraumatic Eyes: Perrl, EOMI ENT: Moist mucous membranes, No rhinorrhea Neck: Supple, Nontender Cardiovascular: Regular rate, Regular rhythm, No murmurs Respiratory: No distress, CTA bilaterally, Chest nontender Abdomen: Soft, Nontender, Nondistended, Normal bowel sounds. Negative for: Pulsatile mass Back: Nontender, Normal Inspection. Negative for: CVA tenderness Extremities: Nontender, No edema Skin: Normal color, No rash, No Trauma Neurological: Alert, Oriented x3, Cranial nerves II-XII grossly intact, Normal Strength, Normal Sensation, Normal Gait Psychological: Normal affect, Normal Mood Diagnostic/Tx/Re-eval Laboratory Results 01/28/19 01/28/19 20:00 20:00 WBC 5.3 RBC 4.45 Hgb 14.2 Hct 42.2 MCV 94.8 MCH 31.9 MCHC 33.6 RDW Std Deviation 43.1 RDW Coeff of Fabrice 12.3 Plt Count 279 MPV 9.0 Immature Gran % (Auto) 0.400 Neut % (Auto) 59.9 Lymph % (Auto) 26.2 Schleicher % (Auto) 11.3 H Eos % (Auto) 1.1 Baso % (Auto) 1.1 H Absolute Neuts (auto) 3.2 Absolute Lymphs (auto) 1.39 Nucleated RBC % 0 Sodium 140 Potassium 3.3 L Chloride 106 Carbon Dioxide 25.0 Anion Gap 9 BUN 16 Creatinine 0.91 Estim Creat Clear Calc 67.15 Est GFR (MDRD) Af Amer 82 Est GFR (MDRD) Non-Af 67 BUN/Creatinine Ratio 17.7 Glucose 100 Calcium 9.3 Total Bilirubin 0.40 AST 14 L ALT 24 Alkaline Phosphatase 78 Total Protein 7.7 Albumin 4.1 Globulin 3.6 Albumin/Globulin Ratio 1.1 Lipase 229 - Medical Decision Making Abdomen is benign, vitals are unremarkable, labs are all normal including LFTs and lipase, and her symptoms resolved with a GI cocktail and dicyclomine. Given all this, I do not think imaging is indicated at this time and I feel it is safe for her to be discharged home on a twice daily H2 umu, as she states she had unpleasant diarrhea as a side effect from PPI in the past. Advised follow-up with her doctor, we discussed reasons to return and she is comfortable with this plan. ED Disposition - Plan for ED Patient: Disposition: Home or Assisted Living Diagnosis: LUQ abdominal pain, GERD (gastroesophageal reflux disease), Anxiety Instructions: What Is a Hiatal Hernia?, Lifestyle Changes for Controlling GERD, Medications for GERD Referrals: Jennifer Pittman MD [Primary Care Provider] - 1 Week if not improving Additional Instructions: Take twice daily Zantac for 1-2 weeks and follow-up with your doctor. If your symptoms recur, try Mylanta or Maalox or Pepto. If persistent, you may return to the ER in any time if you wish.
--- NOTE | 2019-01-28 19:28 | CM.ED ---
Social Work Inquiring with Dr. Plummer for possible social work involvement due to Anxiety as reason for ED visit. Per Dr. Plummer patient ED visit is for abdominal pain and no social work consult is indicated at this time. Marcellus SIMMS, HAKAN
[2019-01-28] MEDS: Mag Hydrox/Al Hydrox/Simeth 30 ML UDC PO (19:55)
[2019-01-28] MEDS: Dicyclomine 10 MG Capsule 20 MG PO (19:55)
[2019-01-28 20:10] LABS: Absolute Lymphocyte Count 1.39 X10^3/uL (0.83-4.51); Absolute Neutrophil Count 3.2 X10^3/uL (2.0-7.7); Basophil# 0.06 X10^3/uL; Basophil% 1.1 % (0-1); Eosinophil# 0.06 X10^3/uL; Eosinophils% 1.1 % (0-5); Hematocrit 42.2 % (37-47); Hemoglobin 14.2 g/dL (12.0-15.0); Lymphocyte # 1.39 X10^3/ul (4.0); Lymphocyte % 26.2 % (19-41); Mean Corp Hgb Conc 33.6 g/dL (32-36); Mean Corpuscular Hgb 31.9 pg (27.0-32.0); Mean Corpuscular Volume 94.8 fL (81-99); Monocyte% 11.3 % (0-10); NRBC Flagged by Analyzer 0 % (0-5); Neutrophil # 3.17 X10^3/uL (2.7-7.7); Neutrophil % 59.9 % (47-70); Platelet Count 279 K/mm3 (150-450); RBC Distribution Width CV 12.3 % (11.6-14.6); RBC Distribution Width SD 43.1 fl (35.1-43.9); Red Blood Count 4.45 M/mm3 (4.2-5.4); White Blood Count 5.3 K/mm3 (4.4-11.0)
[2019-01-28 20:27] LABS: ALB/GLOB Ratio 1.1 RATIO (0.9-2.4); AST(SGOT) 14 U/L (15-37); Alanine Aminotransfer ALT/SGPT 24 U/L (13-56); Albumin, Serum 4.1 g/dL (3.2-5.0); Alkaline Phosphatase 78 U/L (45-117); Anion Gap 9 (5-15); BUN 16 mg/dL (7-18); BUN/Creat Ratio 17.7 RATIO (10-20); Calcium,Total 9.3 mg/dL (8.5-10.1); Chloride 106 mmol/L (98-107); Creatinine, Serum 0.91 mg/dL (0.55-1.02); EST Glomerular Filtration Rate 67 mL/min (>60); Est Glom Filt Rate - Afr Amer 82 mL/min (>60); Estimated Creatinine Clearance 67.15 ml/min; Globulin 3.6 g/dL (2.2-4.2); Glucose 100 mg/dL (74-106); Lipase 229 U/L (73-393); Potassium 3.3 mmol/L (3.5-5.1); Protein, Total 7.7 g/dL (6.4-8.2); Sodium Level 140 mmol/L (136-145)
[2019-01-28 21:19] VITALS: BP 131/80; PULSE 69; RESP 18; O2SAT 97
== END 2019-01-28 21:20 | disposition home or self-care (01) ==
PROVIDERS: Emergency Provider Emergency Medicine; Family Provider Internal Medicine; PCP Internal Medicine
DX: F41.9 Anxiety disorder, unspecified (principal); K21.9 Gastro-esophageal reflux disease without esophagitis; K44.9 Diaphragmatic hernia without obstruction or gangrene; Z87.891 Personal history of nicotine dependence; R10.12 Left upper quadrant pain
CPT/HCPCS: 80053; 83690; 85025; 99284; A4216

== ENCOUNTER 2019-01-31 12:54 | Emergency (ER) | payer OTHER, SELFPAY ==
[2019-01-31 12:55] VITALS: BP 159/87; PULSE 88; RESP 16; TEMP 36.7; O2SAT 100; BMI 22.1
[2019-01-31 13:49] LABS: Absolute Lymphocyte Count 1.48 X10^3/uL (0.83-4.51); Absolute Neutrophil Count 3.3 X10^3/uL (2.0-7.7); Basophil# 0.05 X10^3/uL; Basophil% 0.9 % (0-1); Eosinophil# 0.07 X10^3/uL; Eosinophils% 1.3 % (0-5); Hematocrit 45.1 % (37-47); Hemoglobin 15.6 g/dL (12.0-15.0); Lymphocyte # 1.48 X10^3/ul (4.0); Lymphocyte % 27.3 % (19-41); Mean Corp Hgb Conc 34.6 g/dL (32-36); Mean Corpuscular Hgb 32.5 pg (27.0-32.0); Monocyte# 0.49 X10^3/uL; NRBC Flagged by Analyzer 0 % (0-5); Neutrophil # 3.32 X10^3/uL (2.7-7.7); Neutrophil % 61.3 % (47-70); Platelet Count 310 K/mm3 (150-450); RBC Distribution Width SD 41.9 fl (35.1-43.9); White Blood Count 5.4 K/mm3 (4.4-11.0)
[2019-01-31 14:13] LABS: Anion Gap 8 (5-15); BUN 12 mg/dL (7-18); BUN/Creat Ratio 12.8 RATIO (10-20); Calcium,Total 10.3 mg/dL (8.5-10.1); Chloride 106 mmol/L (98-107); Creatinine, Serum 0.93 mg/dL (0.55-1.02); EST Glomerular Filtration Rate 65 mL/min (>60); Est Glom Filt Rate - Afr Amer 79 mL/min (>60); Glucose 95 mg/dL (74-106); Potassium 3.6 mmol/L (3.5-5.1); Sodium Level 139 mmol/L (136-145)
[2019-01-31 14:24] LABS: Bacteria 0 SEEN /hpf (None Seen); Mucous, Urine 0 SEEN /hpf (<or=2+); Red Blood Cells-Urine 0 SEEN /hpf (0-5); Squamous Epithelial Cells - UA 0 SEEN /hpf (5-10); White Blood Cells 0 SEEN /hpf (0-5)
[2019-01-31 14:29] LABS: Color, Urine Yellow (Yellow); Glucose, Dipstick Normal (Normal); Ketone-Dipstick 5 mg/dl (Negative); Leukocyte Esterase-Dipstick Negative /ul (Negative); Nitrite-Dipstick Negative (Negative); Occult Blood-Urine Negative /ul (Negative); Protein-Dipstick Negative (Negative); Urine Bilirubin Dipstick Negative (Negative); Urine Clarity Clear (Clear); Urine Urobilinogen Normal (Normal)
--- NOTE | 2019-01-31 14:52 | ED.VIS.GEN ---
History of Present Illness Chief Complaint: Abd Pain Informant: Patient, Significant Other Onset: Days - Onset January 26. Context: Sudden Onset Timing: Intermittent Quality: Onset January 26. Location: Epigastrium Current Severity: Moderate Maximum Severity: Severe Worsened by: Anxiety Relieved by: GI cocktail on Thursday when seen in the emergency department Associated Symptoms: Precipitates anxiety attack per patient and Narrative: Patient is a 58-year-old woman who presents with epigastric pain. Pain does not radiate. Anxiety makes pain worse. She reports 3 more she stools per day since Thursday. Pain is intermittent. There is no associated fever, chills night sweats. There is no cardiac respiratory symptoms. She denies black or maroon stool. She has not noted any blood or mucus in her diarrhea. She denies vomiting. She reported resolution with GI cocktail. She was instructed to take Pepcid. States the Pepcid does not help. Her last dose of Ativan was yesterday. Patient states she has had an EGD and colonoscopy performed by Dr. Verma. Both were negative. She has had a CAT scan and ultrasound the past which were unremarkable. Prior similar symptoms: Yes Recent Illness/Hospitalization: Yes - Past Medical History (1) Hiatal hernia Status: Chronic Past Medical History - Allergies and Home Meds Allergies/Adverse Reactions: Allergies No Known Allergies Allergy (Verified 01/31/19 12:58) Primary Care Physician: Jennifer Pittman MD [Primary Care Provider] - Prior records reviewed: Yes - He had a hernia on EGD Surgical History: appendectomy Lives: Spouse/ Significant Other Smoking Status: Former smoker Alcohol: Occasional - 1 to 2 glasses with dinner Drugs: None Review of Systems General: Denies: Chills, Fever, Weight loss Cardiovascular: Denies: Chest pain, Palpitations, Heart racing Respiratory: Denies: Dyspnea, Sputum, Dyspnea on exertion Gastrointestinal: Reports: Abdominal pain, Diarrhea. Denies: Nausea, Vomiting, Constipation, Melena, Hematochezia Genitourinary: Denies: Dysuria, Hematuria, Frequency Musculoskeletal: Denies: Myalgias, Arthralgias, Neck pain, Back pain, Swelling, Extremity Pain, -, - Skin: Denies: Rash, Wounds Neurological: Denies: Headache, Weakness, Numbness Psych: Reports: Anxiety Hematologic: Denies: Easy bruising, Easy bleeding Allergy: Denies: Uticaria, Swelling of the mouth, Swelling of the tongue Physical Exam Vital Signs/Narrative: Vital Signs Temp Pulse Resp BP Pulse Ox 01/31/19 12:55 98.1 F 88 16 159/87 H 100 Inital Vital Signs reviewed: Yes General: Well nourished, Well developed, - - With tremors. states she is having an anxiety reaction. She has her right hand over her epigastrium. Head: Normocephalic, Atraumatic Eyes: Perrl, EOMI. Negative for: Pale conjunctiva, Scleral icterus ENT: Moist mucous membranes, No rhinorrhea Neck: Supple, Nontender, No lymphadenopathy, No JVD Cardiovascular: Regular rate, Regular rhythm, No murmurs, Normal S1, Normal S2 Respiratory: No distress, CTA bilaterally, Chest nontender Abdomen: Soft, Nontender, Nondistended, Normal bowel sounds, No masses Rectal: Deferred Back: Nontender, Normal Inspection Extremities: Nontender, No edema Skin: Normal color, No rash, No Trauma. Negative for: Cyanosis, Diaphoresis, Jaundice Neurological: Alert, Oriented x3, Cranial nerves II-XII grossly intact, Normal Strength, Normal Sensation Psychological: - - Patient appears anxious. Diagnostic/Tx/Re-eval Laboratory Results 01/31/19 01/31/19 01/31/19 13:45 13:45 14:20 WBC 5.4 RBC 4.80 Hgb 15.6 H Hct 45.1 MCV 94.0 MCH 32.5 H MCHC 34.6 RDW Std Deviation 41.9 RDW Coeff of Fabrice 12.0 Plt Count 310 MPV 9.0 Immature Gran % (Auto) 0.200 Neut % (Auto) 61.3 Lymph % (Auto) 27.3 [place] % (Auto) 9.0 Eos % (Auto) 1.3 Baso % (Auto) 0.9 Absolute Neuts (auto) 3.3 Absolute Lymphs (auto) 1.48 Nucleated RBC % 0 Sodium 139 Potassium 3.6 Chloride 106 Carbon Dioxide 25.0 Anion Gap 8 BUN 12 Creatinine 0.93 Estim Creat Clear Calc 65.70 Est GFR (MDRD) Af Amer 79 Est GFR (MDRD) Non-Af 65 BUN/Creatinine Ratio 12.8 Glucose 95 Calcium 10.3 H Urine Color Yellow Urine Clarity Clear Urine pH 8.0 Ur Specific [place] 1.010 Urine Protein Negative Urine Glucose (UA) Normal Urine Ketones 5 H Urine Occult Blood Negative Urine Nitrite Negative Urine Bilirubin Negative Urine Urobilinogen Normal Ur Leukocyte Esterase Negative Urine RBC 0 SEEN Urine WBC 0 SEEN Ur Squamous Epith Cells 0 SEEN Urine Bacteria 0 SEEN Urine Mucus 0 SEEN Laboratory results are unremarkable. - Medical Decision Making Orders were entered per nurse protocol. Patient with history of hiatal hernia and recent presentation. There is an anxiety component. Patient had a sniffing work-up which included an EGD, colonoscopy, CT and ultrasound with only abnormality being a hiatal hernia. Since she reported improvement with GI cocktail on Thursday she was given a GI cocktail and Ativan for her anxiety. He was reassessed at 1650. She is no longer anxious. She states the pain has improved significantly. She appears comfortable. Plan is to discharge with prescription for viscous Xylocaine. ED Disposition - Plan for ED Patient: Disposition: Home or Assisted Living Diagnosis: Acute epigastric pain, Anxiety in acute stress reaction, History of hiatal hernia Instructions: EPIGASTRIC PAIN (Uncertain cause) Prescriptions: Lorazepam [Ativan] 1 mg PO TID #10 tab Prescription Printed Lidocaine 2% Viscous [Xylocaine Viscous] 10 ml PO Q6H PRN PRN #120 udc PRN Reason: Epigastric pain Prescription Printed Referrals: Jennifer Pittman MD [Primary Care Provider] - Additional Instructions: Mix 10 cc, 2 teaspoons, of viscous Xylocaine with 2 tablespoons of Mylanta every 6 hours as needed for epigastric pain
[2019-01-31] MEDS: Mag Hydrox/Al Hydrox/Simeth 30 ML UDC PO (15:07)
[2019-01-31] MEDS: LORazepam 2 MG/ML Syringe 1 MG IV (15:07)
[2019-01-31 16:17] VITALS: BP 145/85; PULSE 69; RESP 16; TEMP 36.9; O2SAT 98
[2019-01-31 17:13] VITALS: BP 142/86; PULSE 72; RESP 16; O2SAT 100
--- NOTE | 2019-01-31 17:13 | ED.RN ---
IV DC'ED, CATHETER INTACT, SMALL GAUZE DRESSING PLACED. DISCHARGE INSTRUCTIONS GIVEN TO AND REVIEWED WITH PATIENT, PATIENT DENIES QUESTIONS OR CONCERNS AND VOICES UNDERSTANDING OF DISCHARGE INSTRUCTIONS. PT AMBULATES OUT OF ROOM WITHOUT DIFFICULTY.
== END 2019-01-31 17:14 | disposition home or self-care (01) ==
PROVIDERS: Emergency Provider Emergency Medicine; Family Provider Internal Medicine; PCP Internal Medicine
DX: R10.13 Epigastric pain (principal); F43.0 Acute stress reaction; K44.9 Diaphragmatic hernia without obstruction or gangrene; Z87.891 Personal history of nicotine dependence; F41.1 Generalized anxiety disorder
CPT/HCPCS: 80048; 81001; 85025; 96374; 99283

== ENCOUNTER 2019-06-26 16:52 | Emergency (ER) | payer OTHER, SELFPAY ==
[2019-06-26 16:52] VITALS: BP 168/102; PULSE 98; RESP 16; TEMP 36.4; O2SAT 99; BMI 22.3
--- NOTE | 2019-06-26 17:33 | ED.VIS.GEN ---
History of Present Illness Chief Complaint: Abd Pain Informant: Patient Onset: Days - 2 days Context: Gradual Onset Current Severity: Mild Maximum Severity: Moderate Narrative: Patient presents with upper quadrant dental pain for the past 2 days. Patient states she is had similar in the past that was attributed to hiatal hernia. She was switched to omeprazole 3 months ago and this is the first flare of pain she is had since that time. She did try a GI cocktail at home with mild improvement. Denies fever or chills. No nausea or vomiting. No change in bowel habits. Only prior abdominal surgery is appendectomy. - Past Medical History (1) Hiatal hernia Status: Chronic (2) Anxiety Status: Chronic (3) GERD (gastroesophageal reflux disease) Status: Chronic Past Medical History - Allergies and Home Meds Allergies/Adverse Reactions: Allergies No Known Allergies Allergy (Verified 01/31/19 12:58) Primary Care Physician: Jennifer Pittman MD [Primary Care Provider] - Prior records reviewed: Yes Surgical History: appendectomy Lives: Spouse/ Significant Other Smoking Status: Former smoker Review of Systems General: Denies: Chills, Fever Eyes: Denies: Visual changes - bilaterally ENT: Denies: Bilateral ear pain Cardiovascular: Denies: Chest pain Respiratory: Denies: Dyspnea, Cough Gastrointestinal: Reports: Abdominal pain. Denies: Nausea, Vomiting, Diarrhea Genitourinary: Denies: Dysuria Skin: Denies: Rash Neurological: Denies: Headache Endocrine: Denies: Polyuria, Polydipsia Hematologic: Denies: Easy bruising Allergy: Denies: Uticaria Physical Exam Vital Signs/Narrative: Vital Signs Temp Pulse Resp BP Pulse Ox 06/26/19 16:52 97.5 F L 98 16 168/102 H 99 Inital Vital Signs reviewed: Yes General: Well nourished, Well developed Head: Normocephalic ENT: Moist mucous membranes Neck: Supple Cardiovascular: Regular rate, Regular rhythm Respiratory: No distress, CTA bilaterally Abdomen: Soft, Tender - Epigastric tenderness to palpation., Hypoactive bowel sounds. Negative for: Guarding, Rebound tenderness Back: Nontender Extremities: Nontender Skin: Normal color, No rash Neurological: Alert, Oriented x3 Psychological: Normal affect Diagnostic/Tx/Re-eval Laboratory Results 06/26/19 06/26/19 17:30 17:30 WBC 6.8 RBC 4.80 Hgb 14.9 Hct 45.0 MCV 93.8 MCH 31.0 MCHC 33.1 RDW Std Deviation 41.5 RDW Coeff of Fabrice 11.9 Plt Count 302 MPV 8.9 Immature Gran % (Auto) 0.100 Neut % (Auto) 64.8 Lymph % (Auto) 23.0 [place] % (Auto) 9.9 Eos % (Auto) 1.2 Baso % (Auto) 1.0 Absolute Neuts (auto) 4.4 Absolute Lymphs (auto) 1.55 Nucleated RBC % 0 Sodium 139 Potassium 3.4 L Chloride 105 Carbon Dioxide 28.0 Anion Gap 6 BUN 15 Creatinine 0.85 Estim Creat Clear Calc 71.00 Est GFR (MDRD) Af Amer 88 Est GFR (MDRD) Non-Af 73 BUN/Creatinine Ratio 17.7 Glucose 97 Calcium 9.6 Total Bilirubin 0.40 Direct Bilirubin 0.14 AST 15 ALT 30 Alkaline Phosphatase 75 Total Protein 8.3 H Albumin 4.4 Globulin 3.9 Lipase 209 - Medical Decision Making Patient was given morphine and Zofran for pain. She then developed an anxiety attack secondary to her pain. She is given 0.5 mg of Ativan. At this time patient states her symptoms are completely resolved. She has no reproducible tenderness over her abdomen. Patient is followed by Dr. Francois and states she was last scoped about 13 months ago. At this time this is the first episode that she has had since we changed to omeprazole. She does admit that she did not eat anything today. I talked to her about continuing her current medication regimen and making sure she eats small frequent meals. ED Disposition - Plan for ED Patient: Disposition: Home or Assisted Living Diagnosis: Epigastric pain Instructions: EPIGASTRIC PAIN (Uncertain cause) Referrals: Jennifer Pittman MD [Primary Care Provider] - Vishal Verma MD [STAFF PHYSICIAN] -
[2019-06-26] MEDS: Morphine 4 MG/ML Syringe IV (17:37)
[2019-06-26] MEDS: 0.9% Normal Saline 1,000 ML 150 ML IV (17:37)
[2019-06-26] MEDS: Ondansetron 4 MG/2 ML Vial IV (17:37)
[2019-06-26] MEDS: LORazepam 2 MG/ML Syringe 0.5 MG IV (17:49)
[2019-06-26 17:56] LABS: Absolute Lymphocyte Count 1.55 X10^3/uL (0.83-4.51); Absolute Neutrophil Count 4.4 X10^3/uL (2.0-7.7); Basophil# 0.07 X10^3/uL; Eosinophil# 0.08 X10^3/uL; Eosinophils% 1.2 % (0-5); Hemoglobin 14.9 g/dL (12.0-15.0); Lymphocyte # 1.55 X10^3/ul (4.0); Mean Corp Hgb Conc 33.1 g/dL (32-36); Mean Corpuscular Volume 93.8 fL (81-99); Mean Platelet Vol. 8.9 fl (6.2-12.0); Monocyte# 0.67 X10^3/uL; Monocyte% 9.9 % (0-10); NRBC Flagged by Analyzer 0 % (0-5); Neutrophil # 4.37 X10^3/uL (2.7-7.7); Neutrophil % 64.8 % (47-70); Platelet Count 302 K/mm3 (150-450); RBC Distribution Width CV 11.9 % (11.6-14.6); RBC Distribution Width SD 41.5 fl (35.1-43.9); White Blood Count 6.8 K/mm3 (4.4-11.0)
[2019-06-26 18:09] LABS: AST(SGOT) 15 U/L (15-37); Alanine Aminotransfer ALT/SGPT 30 U/L (13-56); Albumin, Serum 4.4 g/dL (3.2-5.0); Alkaline Phosphatase 75 U/L (45-117); Anion Gap 6 (5-15); BUN 15 mg/dL (7-18); BUN/Creat Ratio 17.7 RATIO (10-20); Bilirubin, Direct 0.14 mg/dL (0.00-0.30); Calcium,Total 9.6 mg/dL (8.5-10.1); Chloride 105 mmol/L (98-107); Creatinine, Serum 0.85 mg/dL (0.55-1.02); EST Glomerular Filtration Rate 73 mL/min (>60); Est Glom Filt Rate - Afr Amer 88 mL/min (>60); Globulin 3.9 g/dL (2.2-4.2); Glucose 97 mg/dL (74-106); Lipase 209 U/L (73-393); Potassium 3.4 mmol/L (3.5-5.1); Protein, Total 8.3 g/dL (6.4-8.2); Sodium Level 139 mmol/L (136-145)
== END 2019-06-26 20:49 | disposition home or self-care (01) ==
PROVIDERS: Emergency Provider Emergency Medicine; PCP Internal Medicine
DX: R10.13 Epigastric pain (principal); F41.9 Anxiety disorder, unspecified; K21.9 Gastro-esophageal reflux disease without esophagitis; K44.9 Diaphragmatic hernia without obstruction or gangrene; Z87.891 Personal history of nicotine dependence
CPT/HCPCS: 80048; 80076; 83690; 85025; 96361; 96374; 96375; 99283; J7030; A4216; J2405

== ENCOUNTER 2019-10-21 08:53 | Emergency (ER) | payer OTHER, SELFPAY ==
[2019-10-21 08:54] VITALS: BP 130/85; PULSE 89; RESP 17; TEMP 36.8; O2SAT 100; BMI 22.4
--- NOTE | 2019-10-21 09:01 | CT_ITS ---
STUDY: CTA CHEST/ABDOMEN REASON FOR EXAM: Female, 59 years old. cp, tingling to rt arm, reflux. RADIATION DOSAGE (If Supplied By Facility): CTDIvol = ( 9.89 ) mGy, DLP = ( 456.41 ) mGycm TECHNIQUE: The examination was performed with the intravenous administration of 100 CC ISOVUE 300. Post-processing of the angiographic images was performed, with multiplanar reformation and 3D reconstruction. Individualized dose optimization techniques were used for this CT. COMPARISON: None. FINDINGS: CHEST: Heart: Normal. Aorta/great vessels: Adequate contrast enhancement. No aneurysm. No dissection. No vascular occlusion. Pulmonary arteries: Adequate contrast enhancement. No embolism. Lungs/airways: Minimal dependent changes. No patchy airspace opacities. Central airways patent. No suspicious lung nodules. No lung mass. Pleura: No pneumothorax. No pleural effusion. Mediastinum/thyroid/esophagus: Normal. Soft tissues: No acute process. Osseous structures: No acute process. ABDOMEN: Liver: Mild hepatic steatosis. No focal lesions. Gallbladder/biliary ducts: Unremarkable. Pancreas: Unremarkable. Spleen: Unremarkable. Adrenal glands: Unremarkable. Kidneys/ureters/bladder: Visualized portions of the bladder unremarkable. Nondilated ureters. Bilateral symmetric renal parenchymal enhancement. Uterus/adnexa: Not visualized. Large bowel/small bowel: No acute processes. Appendix: No secondary signs of acute appendicitis. Gastroesophageal junction/stomach: Unremarkable. Retroperitoneum/lymph nodes: No intra-abdominal free air. No ascites. No pathologically enlarged lymph nodes. Vascular: Adequate contrast enhancement. No aneurysm. No dissection. No vascular occlusion. Osseous structures: Mild degenerative changes. No acute process. Subcutaneous/soft tissues: Small fat-containing umbilical hernia. Minimal paraspinal muscle atrophy. No acute process. CT/CTA Abdomen W/WO Contrast IMPRESSION: No aneurysm, dissection or embolism No acute intrathoracic or intraabdominal findings Nonemergent findings, as above Electronically Signed: Felix Morton DO at 10:16 EDT Tel , Service support ,
--- NOTE | 2019-10-21 09:01 | EKG12_ITS ---
Test Reason : Blood Pressure : / mmHG Vent. Rate : 073 BPM Atrial Rate : 073 BPM P-R Int : 144 ms QRS Dur : 090 ms QT Int : 406 ms P-R-T Axes : 080 062 061 degrees QTc Int : 447 ms Normal sinus rhythm with sinus arrhythmia Normal ECG Confirmed by JEREMIAH MOYA, CHRISTINE ([id number]), map editor ALLISON GANNON ([id number]) on 10/25/2019 3:24:19 PM Referred By: ISAIAS Confirmed By:CHRISTINE DANIELS MD
--- NOTE | 2019-10-21 09:01 | CT_ITS ---
STUDY: CTA CHEST/ABDOMEN REASON FOR EXAM: Female, 59 years old. cp, tingling to rt arm, reflux. RADIATION DOSAGE (If Supplied By Facility): CTDIvol = ( 9.89 ) mGy, DLP = ( 456.41 ) mGycm TECHNIQUE: The examination was performed with the intravenous administration of 100 CC ISOVUE 300. Post-processing of the angiographic images was performed, with multiplanar reformation and 3D reconstruction. Individualized dose optimization techniques were used for this CT. COMPARISON: None. FINDINGS: CHEST: Heart: Normal. Aorta/great vessels: Adequate contrast enhancement. No aneurysm. No dissection. No vascular occlusion. Pulmonary arteries: Adequate contrast enhancement. No embolism. Lungs/airways: Minimal dependent changes. No patchy airspace opacities. Central airways patent. No suspicious lung nodules. No lung mass. Pleura: No pneumothorax. No pleural effusion. Mediastinum/thyroid/esophagus: Normal. Soft tissues: No acute process. Osseous structures: No acute process. ABDOMEN: Liver: Mild hepatic steatosis. No focal lesions. Gallbladder/biliary ducts: Unremarkable. Pancreas: Unremarkable. Spleen: Unremarkable. Adrenal glands: Unremarkable. Kidneys/ureters/bladder: Visualized portions of the bladder unremarkable. Nondilated ureters. Bilateral symmetric renal parenchymal enhancement. Uterus/adnexa: Not visualized. Large bowel/small bowel: No acute processes. Appendix: No secondary signs of acute appendicitis. Gastroesophageal junction/stomach: Unremarkable. Retroperitoneum/lymph nodes: No intra-abdominal free air. No ascites. No pathologically enlarged lymph nodes. Vascular: Adequate contrast enhancement. No aneurysm. No dissection. No vascular occlusion. Osseous structures: Mild degenerative changes. No acute process. Subcutaneous/soft tissues: Small fat-containing umbilical hernia. Minimal paraspinal muscle atrophy. No acute process. CT/CTA Chest W/WO Contrast IMPRESSION: No aneurysm, dissection or embolism No acute intrathoracic or intraabdominal findings Nonemergent findings, as above Electronically Signed: Felix Morton DO at 10:15 EDT Tel , Service support ,
[2019-10-21] MEDS: Aspirin 81 MG TAB.CHEW 324 MG PO (09:16)
[2019-10-21 09:18] LABS: Absolute Lymphocyte Count 1.21 X10^3/uL (0.83-4.51); Absolute Neutrophil Count 3.6 X10^3/uL (2.0-7.7); Basophil# 0.04 X10^3/uL; Basophil% 0.7 % (0-1); Eosinophil# 0.04 X10^3/uL; Eosinophils% 0.7 % (0-5); Hematocrit 47.1 % (37-47); Hemoglobin 15.5 g/dL (12.0-15.0); Lymphocyte # 1.21 X10^3/ul (4.0); Lymphocyte % 22.4 % (19-41); Mean Corp Hgb Conc 32.9 g/dL (32-36); Mean Corpuscular Hgb 31.3 pg (27.0-32.0); Mean Corpuscular Volume 95.2 fL (81-99); Mean Platelet Vol. 9.1 fl (6.2-12.0); Monocyte# 0.54 X10^3/uL; NRBC Flagged by Analyzer 0 % (0-5); Neutrophil # 3.57 X10^3/uL (2.7-7.7); Platelet Count 286 K/mm3 (150-450); RBC Distribution Width CV 12.1 % (11.6-14.6); RBC Distribution Width SD 42.5 fl (35.1-43.9); Red Blood Count 4.95 M/mm3 (4.2-5.4); White Blood Count 5.4 K/mm3 (4.4-11.0)
[2019-10-21] MEDS: Morphine 4 MG/ML Syringe IV (09:27)
[2019-10-21] MEDS: Ondansetron 4 MG/2 ML Vial IV (09:27)
--- NOTE | 2019-10-21 09:27 | ED.VIS.GEN ---
History of Present Illness Chief Complaint: Chest Pain Informant: Patient Onset: Today Context: Sudden Onset Timing: Continuous Current Severity: Moderate Maximum Severity: Moderate Narrative: The patient is a 59-year-old female with medical history significant for hiatal hernia and reflux that presents to the emergency department with substernal chest pain that radiates to her back, neck, and arm. She states last night, she had some mild reflux symptoms. She did not think much of it. She states this morning, she began to have rather significant pain from her midepigastrium up through her shoulder and arm. She states that her arms felt numb. She states it also radiates up into her neck. She denies any history of coronary vascular disease. She does not smoke. She states she is never really had pain like this before. Prior similar symptoms: No Recent Illness/Hospitalization: No Past Medical History - Allergies and Home Meds Allergies/Adverse Reactions: Allergies No Known Allergies Allergy (Verified 01/31/19 12:58) Primary Care Physician: Jennifer Pittman MD [Primary Care Provider] - Prior records reviewed: Yes Past Medical History: - - Hiatal hernia, GERD Surgical History: appendectomy Smoking Status: Former smoker Review of Systems General: Denies: Chills, Fever, Sweats Eyes: Denies: Visual changes - bilaterally, Diplopia ENT: Denies: Rhinorrhea, Sore throat Cardiovascular: Reports: Chest pain. Denies: Palpitations Respiratory: Reports: Dyspnea. Denies: Cough, Dyspnea on exertion Gastrointestinal: Denies: Abdominal pain, Nausea, Vomiting, Diarrhea, Melena, Hematochezia Genitourinary: Denies: Dysuria, Hematuria, Frequency Musculoskeletal: Denies: Back pain, Extremity Pain Skin: Denies: Rash, Wounds Neurological: Denies: Headache, Weakness, Numbness Physical Exam Vital Signs/Narrative: Vital Signs Temp Pulse Resp BP Pulse Ox 10/21/19 08:54 98.3 F 89 17 130/85 H 100 Inital Vital Signs reviewed: Yes General: Well nourished, Well developed, No Acute Distress Head: Normocephalic, Atraumatic Eyes: Perrl, EOMI ENT: Moist mucous membranes, No rhinorrhea Neck: Supple, Nontender Cardiovascular: Regular rate, Regular rhythm, No murmurs Respiratory: No distress, CTA bilaterally, Chest nontender Abdomen: Soft, Nontender, Nondistended, Normal bowel sounds Back: Nontender, Normal Inspection Extremities: Nontender, No edema Skin: Normal color, No rash Neurological: Alert, Oriented x3, Cranial nerves II-XII grossly intact, Normal Strength, Normal Sensation Psychological: Normal affect, Normal Mood Diagnostic/Tx/Re-eval Clinical Impression(s) from Imaging Studies Abdomen CTA 10/21/19 09:01 IMPRESSION: No aneurysm, dissection or embolism No acute intrathoracic or intraabdominal findings Nonemergent findings, as above Electronically Signed: Felix Morton DO at 10:16 EDT Tel , Service support , Chest CTA 10/21/19 09:01 IMPRESSION: No aneurysm, dissection or embolism No acute intrathoracic or intraabdominal findings Nonemergent findings, as above Electronically Signed: Felix Morton DO at 10:15 EDT Tel , Service support , Abnormal Lab Results 10/21/19 10/21/19 10/21/19 09:10 09:27 09:27 WBC 5.4 RBC 4.95 Hgb 15.5 H Hct 47.1 H MCV 95.2 MCH 31.3 MCHC 32.9 RDW Std Deviation 42.5 RDW Coeff of Fabrice 12.1 Plt Count 286 MPV 9.1 Immature Gran % (Auto) 0.200 Neut % (Auto) 66.0 Lymph % (Auto) 22.4 [place] % (Auto) 10.0 Eos % (Auto) 0.7 Baso % (Auto) 0.7 Absolute Neuts (auto) 3.6 Absolute Lymphs (auto) 1.21 Nucleated RBC % 0 PT 13.3 INR 1.1 APTT 23.9 L Sodium 139 Potassium 3.6 Chloride 108 H Carbon Dioxide 26.0 Anion Gap 5 BUN 12 Creatinine 0.89 Estim Creat Clear Calc 67.81 Est GFR (MDRD) Af Amer 83 Est GFR (MDRD) Non-Af 69 BUN/Creatinine Ratio 13.5 Glucose 113 H Calcium 9.7 Total Bilirubin Direct Bilirubin AST ALT Alkaline Phosphatase Troponin I < 0.015 Total Protein Albumin Globulin Lipase 10/21/19 10/21/19 09:27 09:27 WBC RBC Hgb Hct MCV MCH MCHC RDW Std Deviation RDW Coeff of Fabrice Plt Count MPV Immature Gran % (Auto) Neut % (Auto) Lymph % (Auto) [place] % (Auto) Eos % (Auto) Baso % (Auto) Absolute Neuts (auto) Absolute Lymphs (auto) Nucleated RBC % PT INR APTT Sodium Potassium Chloride Carbon Dioxide Anion Gap BUN Creatinine Estim Creat Clear Calc Est GFR (MDRD) Af Amer Est GFR (MDRD) Non-Af BUN/Creatinine Ratio Glucose Calcium Total Bilirubin 0.70 Direct Bilirubin 0.18 AST 15 ALT 25 Alkaline Phosphatase 71 Troponin I Total Protein 7.6 Albumin 4.1 Globulin 3.5 Lipase 234 - Rhythm Strip Rhythm Strip: Sinus Rhythm Rate: 90 Ectopy: None - EKG Initial EKG Interpretation: Sinus Rhythm, No Acute Injury Pattern Prior: Unchanged - Medical Decision Making The patient presents with chest pain after experiencing heartburn symptoms. She describes the pain as a tearing sensation in her midepigastric area up into her back. EKG was obtained which was sinus rhythm without any acute ischemic change. It was unchanged from prior. Did the patient's age and description of the pain, I did want to rule out dissection. Patient was sent for stat CTA. This shows normal aorta without evidence of dissection, occlusion, or pulmonary embolus. Screening labs are unremarkable including cardiac enzymes. The patient has no significant risk factor for heart disease, and has recent negative work-up through the [facility]. My suspicion is that this is more likely her GERD versus esophageal spasm. With her unremarkable work-up I do feel that she is safe for outpatient therapy. The patient is agreeable with this and would rather go home. She was counseled on concerning symptoms and reasons to return. Impression 1. Atypical chest pain ED Disposition - Plan for ED Patient: Instructions: ED Chest Pain Atypical Unkn Cause Referrals: Jennifer Pittman MD [Primary Care Provider] -
[2019-10-21 09:58] LABS: Lipase 234 U/L (73-393)
[2019-10-21 09:59] LABS: Anion Gap 5 (5-15); BUN 12 mg/dL (7-18); BUN/Creat Ratio 13.5 RATIO (10-20); Calcium,Total 9.7 mg/dL (8.5-10.1); Chloride 108 mmol/L (98-107); Creatinine, Serum 0.89 mg/dL (0.55-1.02); EST Glomerular Filtration Rate 69 mL/min (>60); Est Glom Filt Rate - Afr Amer 83 mL/min (>60); Estimated Creatinine Clearance 67.81 ml/min; Glucose 113 mg/dL (74-106); Potassium 3.6 mmol/L (3.5-5.1); Sodium Level 139 mmol/L (136-145)
[2019-10-21 10:09] LABS: AST(SGOT) 15 U/L (15-37); Alanine Aminotransfer ALT/SGPT 25 U/L (13-56); Albumin, Serum 4.1 g/dL (3.2-5.0); Alkaline Phosphatase 71 U/L (45-117); Bilirubin, Direct 0.18 mg/dL (0.00-0.30); Globulin 3.5 g/dL (2.2-4.2); Protein, Total 7.6 g/dL (6.4-8.2)
[2019-10-21] MEDS: 0.9% Normal Saline 1,000 ML 150 ML IV (10:11)
[2019-10-21 10:12] VITALS: BP 146/77; PULSE 69; RESP 17; O2SAT 100
[2019-10-21 10:24] LABS: International Normalized Ratio 1.1; Prothrombin Time (Protime)PT. 13.3 SECONDS (11.7-14.9)
[2019-10-21 10:25] LABS: Partial Thromboplast Time 23.9 Seconds (24.1-36.2)
[2019-10-21 10:32] VITALS: BP 135/75; PULSE 57; RESP 16; O2SAT 100
== END 2019-10-21 10:38 | disposition home or self-care (01) ==
LOC: ED 10:14
PROVIDERS: Emergency Provider Emergency Medicine; PCP Internal Medicine
DX: R07.89 Other chest pain (principal); K21.9 Gastro-esophageal reflux disease without esophagitis; Z87.891 Personal history of nicotine dependence
CPT/HCPCS: 71275; 74175; 80048; 80076; 83690; 84484; 85025; 85610; 85730; 93005; 96374; 96375; 99285; J7030; Q9967; A4216; J2405

== ENCOUNTER 2020-10-17 10:38 | Emergency (ER) | payer OTHER, SELFPAY ==
[2020-10-17 10:39] VITALS: BP 156/77; PULSE 78; RESP 15; TEMP 36.2; O2SAT 98; BMI 21.7
--- NOTE | 2020-10-17 10:57 | EKG12_ITS ---
Test Reason : PALPITATIONS Blood Pressure : / mmHG Vent. Rate : 073 BPM Atrial Rate : 073 BPM P-R Int : 142 ms QRS Dur : 088 ms QT Int : 402 ms P-R-T Axes : 083 062 059 degrees QTc Int : 442 ms Normal sinus rhythm Normal ECG Confirmed by KARLA MOYA, KARISSA ([id number]), purchasing expeditor HERVE HENDRICKS ([id number]) on 10/19/2020 11:39:56 A M Referred By: RACHNA Confirmed By:ARLET ACOSTA MD
--- NOTE | 2020-10-17 10:58 | EX.ED.DYSGE1 ---
HPI History of Present Illness Chief Complaint: Palpitations Informant: patient Onset/Context/Timing Onset: Today Context: Sudden Onset Current Severity: Mild Maximum Severity: Moderate Narrative Narrative: Patient presents with lightheadedness and near syncope. She is actually in the emergency room with her who is being seen. She was sitting at bedside when she suddenly developed pain in her left posterior lower lung and in her midsternal area. She felt short of breath, lightheaded, and as if she may pass out. She states she does have a history of anxiety but this feels completely different. She felt fine when she came in this morning. She did eat something this morning. [facility] Medical History (Updated 10/17/20 @ 13:[address] Anna Marie Mendiola MD) Anxiety Asthma GERD (gastroesophageal reflux disease) Home Medications albuterol sulfate [Ventolin HFA] 1 - 2 puff INHALATION BID PRN 01/12/18 [History Last Taken Unknown] Allergy/AdvReac Type Severity Reaction Status Date / Time No Known Allergies Allergy Verified 10/17/20 10:41 Surgical History (Updated 10/17/20 @ 11:19 by Cali Barillas) History of appendectomy Social History Smoking Status: Former smoker ROS ROS ED Constitutional Constitutional ED: Denies chills or fever(s) Eyes Eyes: Denies change in vision ENT ENT ED: Denies sore throat Cardiovascular Cardiovascular: Reports chest pain Respiratory/Chest Respiratory/Chest: Reports dyspnea; Denies cough Gastrointestinal Gastrointestinal: Denies abdominal pain, diarrhea, nausea or vomiting Genitourinary Genitourinary ED: Denies dysuria Musculoskeletal Musculoskeletal: Denies back pain Integumentary Denies rash Neurologic Neurologic: Denies headache(s) or weakness Psychiatric Psychiatric: Denies anxiety or depression Endocrine Endocrinology: Denies polydipsia or polyuria Allergic/Immunologic Allergic/Immunologic ED: Denies urticaria EXAM Physical Exam Const Vital Signs: 10/17/20 10:39 10/17/20 11:29 Temperature 97.2 F L Temperature Source Temporal Pulse Rate 78 Respiratory Rate 15 Respiratory Effort Normal Non-Labored Blood Pressure 156/77 H Blood Pressure Mean 103 Pulse Ox 98 Oxygen Delivery Method Room Air Positive well nourished and well developed General Appearance ED: well developed HEENT Reports normocephalic and head/scalp atraumatic Eyes PERRL and EOMs intact bilaterally Neck supple Chest Wall inspection of chest normal and palpation of chest normal Resp normal respiratory effort and clear to auscultation bilaterally Cardio regular rate and regular rhythm GI normal to inspection, nondistended, normoactive bowel sounds Palpation: soft Back/Spine no CVA tenderness Extremity normal to inspection Neuro oriented x3 and no sensory deficits noted Sensorium / Orientation: alert Motor Exam: strength 5/5 throughout Psych mental status grossly normal Skin no rashes or lesions noted MDM MDM MDM Narrative Medical decision making narrative: Patient placed on personnel monitor. Lab Data Attestation: I reviewed the patient's lab results. Labs: Laboratory Results - last 24 hr 10/17/20 10/17/20 10/17/20 11:31 11:31 11:31 WBC 4.7 RBC 4.60 Hgb 14.7 Hct 42.9 MCV 93.3 MCH 32.0 MCHC 34.3 RDW Std Deviation 40.4 RDW Coeff of Fabrice 11.9 Plt Count 319 MPV 8.8 Immature Gran % (Auto) 0.200 Neut % (Auto) 66.0 Lymph % (Auto) 22.0 [place] % (Auto) 9.8 Eos % (Auto) 0.9 Baso % (Auto) 1.1 H Absolute Neuts (auto) 3.1 Absolute Lymphs (auto) 1.03 Nucleated RBC % 0 D-Dimer Quant (PE/DVT) 0.32 Sodium 140 Potassium 3.7 Chloride 107 Carbon Dioxide 26.0 Anion Gap 7 BUN 15 Creatinine 0.90 Estim Creat Clear Calc 66.22 Est GFR (MDRD) Af Amer 81 Est GFR (MDRD) Non-Af 67 BUN/Creatinine Ratio 16.6 Glucose 100 Calcium 9.6 Troponin I < 0.015 Radiography Chest X-Ray - ED: 1 View, Read by ED Physician and - (Hyperinflation) Diagnostic Testing: Radiology Impression Chest X-Ray 10/17/20 11:33 IMPRESSION: No acute pulmonary process Electronically Signed: Chay Santacruz MD at 12:05 EDT , Service support , EKG Initial EKG: Interpretation: Sinus Rhythm (Sinus at 73 with no acute ischemia.) Treatment and Re-Evaluation Comments:: On repeat evaluation patient resting comfortably. She does report feeling significantly improved. Test results are discussed with patient and at bedside. They are both reassured with these findings. She does feel comfortable going home and will continue to monitor her symptoms. She is given return instructions. Discharge Plan Triage Chief Complaint: Palpitations ED Provider: Anna Marie Mendiola Dx/Rx/DC Orders Clinical Impression: Near syncope Instructions: ED Near-Fainting, Uncertain Cause Prescriptions: No Action albuterol sulfate [Ventolin HFA] 108 HFA aerosol inhaler 1 - 2 puff inhalation BID PRN (Reason: Sob &/Or Wheezing) RF: 0 Primary Care Provider: Jennifer Pittman Referrals: Jennifer Pittman MD [Primary Care Provider] - 1-2 Weeks Disposition Disposition: Home, self care
[2020-10-17] MEDS: 0.9% Normal Saline 1,000 ML 150 ML IV (11:30)
--- NOTE | 2020-10-17 11:33 | RAD_ITS ---
STUDY: X-RAY CHEST REASON FOR EXAM: Female, 60 years old. Worsening shortness of breath TECHNIQUE: 2 AP portable views COMPARISON: 2017 FINDINGS: EKG leads overlie the chest The lungs are clear and expanded. There is no demonstrated pleural abnormality. Normal size heart. Normal mediastinum and sanam. Normal visualized pulmonary arteries. Normal visualized aortic arch and descending thoracic aorta. Normal visualized thoracic spine. Normal visualized ribs, clavicles, and shoulders. There is no demonstrated abnormality of the visualized soft tissue structures of the upper abdomen. RAD/Chest 1 View (Portable) IMPRESSION: No acute pulmonary process Electronically Signed: Chay Santacruz MD at 12:05 EDT , Service support ,
[2020-10-17 11:40] LABS: Absolute Lymphocyte Count 1.03 X10^3/uL (0.83-4.51); Absolute Neutrophil Count 3.1 X10^3/uL (2.0-7.7); Basophil# 0.05 X10^3/uL; Basophil% 1.1 % (0-1); Eosinophil# 0.04 X10^3/uL; Eosinophils% 0.9 % (0-5); Hematocrit 42.9 % (37-47); Hemoglobin 14.7 g/dL (12.0-15.0); Lymphocyte # 1.03 X10^3/ul (0.83-4.51); Mean Corp Hgb Conc 34.3 g/dL (32-36); Mean Corpuscular Volume 93.3 fL (81-99); Mean Platelet Vol. 8.8 fl (6.2-12.0); Monocyte# 0.46 X10^3/uL; Monocyte% 9.8 % (0-10); NRBC Flagged by Analyzer 0 % (0-5); Neutrophil # 3.09 X10^3/uL (2.7-7.7); Platelet Count 319 K/mm3 (150-450); RBC Distribution Width CV 11.9 % (11.6-14.6); RBC Distribution Width SD 40.4 fl (35.1-43.9); White Blood Count 4.7 K/mm3 (4.4-11.0)
[2020-10-17 12:04] LABS: Anion Gap 7 (5-15); BUN 15 mg/dL (7-18); BUN/Creat Ratio 16.6 RATIO (10-20); Calcium,Total 9.6 mg/dL (8.5-10.1); Chloride 107 mmol/L (98-107); D-Dimer Quantitative (DVT/PE) 0.32 FEU/ug/m (0.27-0.49); EST Glomerular Filtration Rate 67 mL/min (>60); Est Glom Filt Rate - Afr Amer 81 mL/min (>60); Estimated Creatinine Clearance 66.22 ml/min; Glucose 100 mg/dL (74-106); Potassium 3.7 mmol/L (3.5-5.1); Sodium Level 140 mmol/L (136-145)
[2020-10-17 13:36] VITALS: BP 132/78; PULSE 78; RESP 16; O2SAT 99
== END 2020-10-17 13:38 | disposition home or self-care (01) ==
PROVIDERS: Emergency Provider Emergency Medicine; PCP Internal Medicine
DX: R55 Syncope and collapse (principal); Z87.891 Personal history of nicotine dependence; F41.9 Anxiety disorder, unspecified; J45.909 Unspecified asthma, uncomplicated; K21.9 Gastro-esophageal reflux disease without esophagitis
CPT/HCPCS: 71045; 80048; 84484; 85025; 85379; 93005; 99284; J7030; A4216

== ENCOUNTER 2021-03-23 12:05 | Emergency (ER) | payer OTHER, SELFPAY ==
[2021-03-23 12:06] VITALS: BP 174/115; PULSE 107; RESP 20; TEMP 36.6; O2SAT 100; BMI 22.8
--- NOTE | 2021-03-23 12:09 | RAD_ITS ---
EXAM: XR CHEST, 1 VIEW CLINICAL INDICATION: Chest pain. TECHNIQUE: Frontal view of the chest. This report was created using [employer] report generation technology. COMPARISON: 10/17/2020. FINDINGS: LUNGS AND PLEURAL SPACES: Unremarkable. No consolidation or edema. No pneumothorax. No effusion. HEART: Unremarkable. Cardiac silhouette not enlarged. MEDIASTINUM: Central airways and mediastinal contour are unremarkable. BONES/JOINTS: Unremarkable. SOFT TISSUES: Prominent nipple shadows. RAD/Chest 1 View IMPRESSION: No acute findings in the chest and unchanged when compared to 10/17/2020. Electronically Signed: Nikhil Burnette MD at 15:22 EDT , Service support ,
--- NOTE | 2021-03-23 12:09 | EKG12_ITS ---
Test Reason : Blood Pressure : / mmHG Vent. Rate : 087 BPM Atrial Rate : 087 BPM P-R Int : 138 ms QRS Dur : 088 ms QT Int : 374 ms P-R-T Axes : 081 074 031 degrees QTc Int : 450 ms Normal sinus rhythm Nonspecific ST abnormality Abnormal ECG Confirmed by JEREMIAH MOYA, CHRISTINE ([id number]), science editor HERVE HENDRICKS ([id number]) on 03/26/2021 10:31:56 AM Referred By: BRUCE Confirmed By:CHRISTINE DANIELS MD
--- NOTE | 2021-03-23 12:46 | US_ITS ---
STUDY: ABDOMINAL ULTRASOUND - RIGHT UPPER QUADRANT REASON FOR VISIT: Female, 61 years old. Right upper quadrant pain TECHNIQUE: Ultrasound evaluation of the right upper quadrant was performed with real-time and static espinal-scale imaging. TECHNICAL QUALITY: Adequate. COMPARISON: None. FINDINGS: Liver: The liver measures 13.4 cm. There is normal echogenicity of the liver. The bile ducts are within normal limits. There is hepatic color flow. The direction of portal flow is hepatopetal. There is no demonstrated mass lesion. Gallbladder: Normal distended gallbladder. The gallbladder wall measures 2 mm. There is a negative sonographic Muhammad''s sign. There is no pericholecystic fluid. There are no gallstones. Common Bile Duct (C.B.D.): The common bile duct measures 6 mm. Pancreas: Normal size of the head, body and tail of the pancreas. There is normal echogenicity of the pancreas. There is no demonstrated pancreatic mass or cyst. There is mild dilation of the pancreatic duct up to 4 mm. Right Kidney: Normal size of the right kidney. The right kidney measures 9.5 x 5.2 x 3.5 cm. Normal renal cortex. The right cortex measures 1.1 cm. There is no demonstrated renal mass or cyst. There is no right hydronephrosis. US/Gallbladder IMPRESSION: No acute abnormality. Mild pancreatic ductal dilation, refer to dedicated imaging with CT or MR. Electronically Signed: Kristi Crews MD at 14:13 EDT Tel , Service support ,
[2021-03-23 12:48] VITALS: BP 173/101; PULSE 91; RESP 20; O2SAT 100
--- NOTE | 2021-03-23 12:48 | EDS_ITS ---
HPI HPI - GI History of Present Illness Chief Complaint: Abd Pain Informant: patient Abdominal Pain/Flank Pain Onset: Days (3) Context: Sudden Onset Timing: Intermittent and Lasts (hr or so) Quality: Aching Location: RUQ (radiating into right mid back) Current Severity: Severe Maximum Severity: Severe Worsened by: Nothing Relieved by: Nothing Nausea/Vomiting/Emesis GI Symptom: Negative for Nausea and Vomiting Diarrhea/Melena/Hematochezia GI Symptom: Negative for Diarrhea, Melena and Hematochezia Associated Symptoms Associated Symptoms: Negative for Dysuria, Frequency, Hematuria and Urgency Narrative Narrative: 61-year-old female right upper quadrant pain, she states it radiates a little bit up into her chest but mainly right upper quadrant under her rib cage. No dyspnea. No nausea or vomiting. Normal bowel movements, seem to make it go away 3 days ago when it started, so she did not come in then but now it is worse and bowel movements have not helped. No blood or melena, normal urination, no fevers or chills, itching/jaundice, or mental status changes. She had a prior appendectomy no other abdominal surgeries. [facility] Medical History Anxiety Asthma GERD (gastroesophageal reflux disease) Home Medications budesonide-formoterol [Symbicort] 2 puff INHALATION BID PRN 03/23/21 [History Last Taken Unknown] calcium carb-magnesium ox,carb [[place]-Mag] 1 tab PO DAILY 03/23/21 [History Last Taken Unknown] cholecalciferol (vitamin D3) [Vitamin D3] 10 mcg PO DAILY 03/23/21 [History Last Taken Unknown] hydrocodone-acetaminophen 1 tab PO Q4H PRN PRN 2 Days #10 tablet 03/23/21 [Rx Last Taken Unknown] ondansetron 8 mg PO Q8H PRN PRN #20 tab 03/23/21 [Rx Last Taken Unknown] pantoprazole 40 mg PO DAILY #30 tab 03/23/21 [Rx Last Taken Unknown] zinc 100 mg PO DAILY 03/23/21 [History Last Taken Unknown] Allergy/AdvReac Type Severity Reaction Status Date / Time No Known Allergies Allergy Verified 03/23/21 12:46 Surgical History History of appendectomy Social History Smoking Status: Former smoker ROS ROS ED Constitutional Constitutional ED: Denies chills or fever(s) Eyes Eyes: Denies change in vision or diplopia ENT ENT ED: Denies rhinorrhea or sore throat Cardiovascular Cardiovascular: Denies chest pain or palpitations Respiratory/Chest Respiratory/Chest: Denies cough or dyspnea Gastrointestinal Gastrointestinal: Reports abdominal pain; Denies diarrhea, nausea or vomiting Genitourinary Genitourinary ED: Denies dysuria or hematuria Musculoskeletal Musculoskeletal: Reports back pain; Denies neck pain Integumentary Denies abscess or rash Neurologic Neurologic: Denies headache(s), paresthesias or weakness Psychiatric Psychiatric: Denies anxiety or suicidal thoughts EXAM Physical Exam Const Vital Signs: 03/23/21 12:06 03/23/21 12:48 03/23/21 14:27 Temperature 97.9 F Temperature Source Temporal Pulse Rate 107 H 91 87 Respiratory Rate 20 H 20 H 16 Blood Pressure 174/115 H 173/101 H Blood Pressure Mean 134 125 Pulse Ox 100 100 99 Oxygen Delivery Method Room Air Room Air Room Air Positive well nourished and well developed General Appearance ED: well developed and NAD HEENT Reports moist mucous membranes normocephalic and atraumatic Eyes PERRL and EOMs intact bilaterally Neck full ROM and supple Resp normal respiratory effort and clear to auscultation bilaterally Cardio regular rate, regular rhythm and no murmurs GI non-distended Auscultation: normoactive bowel sounds Palpation: soft and tender epigastric, RUQ and Muhammad's sign; Negative for rebound tenderness present Back/Spine no CVA tenderness General Back: other FROM Extremity normal to inspection General Extremety ED: Negative for edema, pulses abnormal or tenderness General Extremity: Negative for edema or pulses abnormal Neuro oriented x3, CN's II-XII intact bilaterally and no sensory deficits noted Sensorium / Orientation: awake and alert Motor Exam: strength 5/5 throughout Skin no rashes or lesions noted and no wounds MDM MDM MDM Narrative Medical decision making narrative: Patient initially came in saying that she was having right upper quadrant and right lower chest discomfort, her cardiac work- up is unremarkable and her chest x-ray is normal, but her symptoms really sound more like biliary colic without a clear association with meals. She states the pain was severe in her right upper quadrant mostly, radiating into her right back. Her ultrasound is normal however, except for this incidental finding of a prominent pancreatic duct of unknown significance. Since her lipase is not elevated and she is asymptomatic on reevaluation, she does not need to CT emergently. I offered it but she was okay with waiting until she follows up. I will prescribe her analgesics, Zofran to use as needed in addition to a PPI and I advise she avoid fats in follow-up as an outpatient. She may need a HIDA scan for these symptoms that is not available here on the weekends, and since she is doing so well without a leukocytosis I do not think she needs to be admitted for this at this time. Certainly intraluminal intestinal diseases in the differential, which is why explained to her putting her on a PPI would be reasonable and she is amenable to that plan. We discussed reasons to return in the meantime. Lab Data Attestation: I reviewed the patient's lab results. Labs: Laboratory Results - last 24 hr 03/23/21 03/23/21 03/23/21 12:46 12:46 13:10 WBC 4.6 RBC 4.72 Hgb 14.9 Hct 44.8 MCV 94.9 MCH 31.6 MCHC 33.3 RDW Std Deviation 42.0 RDW Coeff of Fabrice 12.0 Plt Count 289 MPV 8.9 Immature Gran % (Auto) 0.200 Neut % (Auto) 62.9 Lymph % (Auto) 22.6 [place] % (Auto) 12.7 H Eos % (Auto) 0.9 Baso % (Auto) 0.7 Absolute Neuts (auto) 2.9 Absolute Lymphs (auto) 1.03 Nucleated RBC % 0 Sodium 137 Potassium 3.9 Chloride 102 Carbon Dioxide 26.0 Anion Gap 9 BUN 14 Creatinine 0.92 Estim Creat Clear Calc 63.96 Est GFR (MDRD) Af Amer 80 Est GFR (MDRD) Non-Af 66 BUN/Creatinine Ratio 15.3 Glucose 109 H Calcium 9.8 Total Bilirubin 0.60 Direct Bilirubin 0.22 AST 21 ALT 22 Alkaline Phosphatase 77 Troponin I High Sens 4 Total Protein 8.3 H Albumin 4.3 Globulin 4.0 Lipase 185 Urine Color Yellow Urine Clarity Clear Urine pH 8.0 Ur Specific [place] 1.010 Urine Protein Negative Urine Glucose (UA) Normal Urine Ketones Negative Urine Occult Blood Negative Urine Nitrite Negative Urine Bilirubin Negative Urine Urobilinogen Normal Ur Leukocyte Esterase Negative Urine RBC 0 SEEN Urine WBC 0 SEEN Ur Squamous Epith Cells 0 SEEN Urine Bacteria 0 SEEN Urine Mucus 0 SEEN Radiography Diagnostic Testing: Clinical Impression(s) from Imaging Studies Gallbladder Ultrasound 03/23/21 12:46 IMPRESSION: No acute abnormality. Mild pancreatic ductal dilation, refer to dedicated imaging with CT or MR. Electronically Signed: Kristi Crews MD at 14:13 EDT Tel , Service support , EKG Initial EKG: Attestation: I personally reviewed and interpreted this EKG as follows: Interpretation: Sinus Rhythm (87) and No Acute Injury Pattern Comments: normal EKG w/ artifact in I, III Discharge Plan Triage Chief Complaint: Abd Pain ED Provider: Chema Plummer Dx/Rx/DC Orders Clinical Impression: Right upper quadrant abdominal pain Instructions: Abdominal Pain, ED Diet, Low Fat Prescriptions: New hydrocodone-acetaminophen [hydrocodone-acetaminophen] 1 TABLET tablet 1 tab PO Q4H PRN PRN (Reason: Pain) 2 Days Qty: 10 RF: 0 ondansetron [ondansetron] 4 MG tablet 8 mg PO Q8H PRN PRN (Reason: Nausea) Qty: 20 RF: 0 pantoprazole 40 mg tablet,delayed release (DR/EC) 40 mg PO DAILY Qty: 30 RF: 0 No Action zinc 100 mg Tablet 100 mg PO DAILY RF: 0 cholecalciferol (vitamin D3) [Vitamin D3] 10 mcg (400 unit) Capsule 10 mcg PO DAILY RF: 0 budesonide-formoterol [Symbicort] 80-4.5 mcg/actuation HFA aerosol inhaler 2 puff INHALATION BID PRN (Reason: Shortness Of Breath) RF: 0 [place]-Mag 200 mg calcium- 100 mg Tablet,Chewable 1 tab PO DAILY RF: 0 Primary Care Provider: Jennifer Pittman Referrals: Jennifer Pittman MD [Primary Care Provider] - (After the weekend, call for appointment) Disposition Disposition: Home, Self Care
[2021-03-23 12:56] LABS: Absolute Lymphocyte Count 1.03 X10^3/uL (0.83-4.51); Absolute Neutrophil Count 2.9 X10^3/uL (2.0-7.7); Basophil# 0.03 X10^3/uL; Basophil% 0.7 % (0-1); Eosinophil# 0.04 X10^3/uL; Eosinophils% 0.9 % (0-5); Hematocrit 44.8 % (37-47); Hemoglobin 14.9 g/dL (12.0-15.0); Lymphocyte # 1.03 X10^3/ul (0.83-4.51); Lymphocyte % 22.6 % (19-41); Mean Corp Hgb Conc 33.3 g/dL (32-36); Mean Corpuscular Hgb 31.6 pg (27.0-32.0); Mean Corpuscular Volume 94.9 fL (81-99); Mean Platelet Vol. 8.9 fl (6.2-12.0); Monocyte# 0.58 X10^3/uL; Monocyte% 12.7 % (0-10); NRBC Flagged by Analyzer 0 % (0-5); Neutrophil # 2.86 X10^3/uL (2.7-7.7); Neutrophil % 62.9 % (47-70); Platelet Count 289 K/mm3 (150-450); Red Blood Count 4.72 M/mm3 (4.2-5.4); White Blood Count 4.6 K/mm3 (4.4-11.0)
[2021-03-23] MEDS: Ondansetron 4 MG/2 ML Vial IV (12:56)
[2021-03-23] MEDS: Ketorolac 15 MG/ML Vial IV (12:58)
[2021-03-23] MEDS: Morphine 4 MG/ML Syringe IV (13:00)
[2021-03-23 13:11] LABS: AST(SGOT) 21 U/L (15-37); Alanine Aminotransfer ALT/SGPT 22 U/L (13-56); Albumin, Serum 4.3 g/dL (3.2-5.0); Alkaline Phosphatase 77 U/L (45-117); Anion Gap 9 (5-15); BUN 14 mg/dL (7-18); BUN/Creat Ratio 15.3 RATIO (10-20); Bilirubin, Direct 0.22 mg/dL (0.00-0.30); Calcium,Total 9.8 mg/dL (8.5-10.1); Chloride 102 mmol/L (98-107); Creatinine, Serum 0.92 mg/dL (0.55-1.02); EST Glomerular Filtration Rate 66 mL/min (>60); Est Glom Filt Rate - Afr Amer 80 mL/min (>60); Estimated Creatinine Clearance 63.96 ml/min; Glucose 109 mg/dL (74-106); Lipase 185 U/L (73-393); Potassium 3.9 mmol/L (3.5-5.1); Protein, Total 8.3 g/dL (6.4-8.2); Sodium Level 137 mmol/L (136-145); Troponin-I HS 4 pg/mL (3.0-54.0)
[2021-03-23 13:17] LABS: Bacteria 0 SEEN /hpf (None Seen); Mucous, Urine 0 SEEN /hpf (<or=2+); Red Blood Cells-Urine 0 SEEN /hpf (0-5); Squamous Epithelial Cells - UA 0 SEEN /hpf (5-10); White Blood Cells 0 SEEN /hpf (0-5)
[2021-03-23 13:24] LABS: Color, Urine Yellow (Yellow); Glucose, Dipstick Normal (Normal); Ketone-Dipstick Negative (Negative); Leukocyte Esterase-Dipstick Negative /ul (Negative); Nitrite-Dipstick Negative (Negative); Occult Blood-Urine Negative /ul (Negative); Protein-Dipstick Negative (Negative); Urine Bilirubin Dipstick Negative (Negative); Urine Clarity Clear (Clear); Urine Urobilinogen Normal (Normal)
[2021-03-23 14:27] VITALS: PULSE 87; RESP 16; O2SAT 99
[2021-03-23 15:15] VITALS: BP 149/82; PULSE 69; RESP 18; O2SAT 99
--- NOTE | 2021-03-23 15:16 | ED.RN ---
REVIEWED D/C INSTRUCTIONS, FOLLOW UP CARE, PRESCRIPTIONS, AND S/S THAT WOULD WARRANT A RETURN TO THE ED WITH PT. PT VERBALIZED AN UNDERSTANDING AND DENIES FURTHER QUESTIONS FOR THIS RN. PT SKIN P/W/D, RESP EVEN AND UNLABORED, PT A&O X 3, NO DISTRESS NOTED. PT AMBULATED OUT OF ED, GAIT STEADY.
== END 2021-03-23 15:17 | disposition home or self-care (01) ==
PROVIDERS: Emergency Provider Emergency Medicine; PCP Internal Medicine
DX: R10.11 Right upper quadrant pain (principal); J45.909 Unspecified asthma, uncomplicated; Z79.51 Long term (current) use of inhaled steroids; Z87.891 Personal history of nicotine dependence; Z79.899 Other long term (current) drug therapy
CPT/HCPCS: 71045; 76705; 80048; 80076; 81001; 83690; 84484; 85025; 93005; 96374; 96375; 99285; A4216; J2405

== ENCOUNTER 2021-06-11 09:58 | Emergency (ER) | payer OTHER, SELFPAY ==
[2021-06-11 09:58] VITALS: BP 169/94; PULSE 102; RESP 16; TEMP 36.5; O2SAT 100; BMI 21.7
--- NOTE | 2021-06-11 10:08 | EKG12_ITS ---
Test Reason : CP Blood Pressure : / mmHG Vent. Rate : 081 BPM Atrial Rate : 081 BPM P-R Int : 138 ms QRS Dur : 092 ms QT Int : 376 ms P-R-T Axes : 080 062 076 degrees QTc Int : 436 ms Normal sinus rhythm Normal ECG Confirmed by SONIA MOYA, FAHEEM ([id number]), city editor HERVE HENDRICKS ([id number]) on 06/12/2021 11:42:49 AM Referred By: JAVIER Confirmed By:FAHEEM SCOTT MD
[2021-06-11] MEDS: Albuterol 2.5 MG/3 ML VIAL.NEB. INHALATION (10:36)
[2021-06-11 10:37] VITALS: RESP 18
--- NOTE | 2021-06-11 10:53 | EDS_ITS ---
HPI History of Present Illness Chief Complaint: Chest Pain Detail of Chief Complaint: Fleeting left-sided chest pain Informant: patient Onset/Context/Timing Onset: Today and Yesterday Activity at onset: activity on onset Timing: Intermittent (Less than 5 seconds) Quality: Positive for Sharp Location: Left Chest Current Severity: Gone Maximum Severity: Mild Worsened By: Nothing Relieved By: Nothing Associated Symptoms: Positive for Dyspnea and Cough; Negative for Nausea, Vomiting, Diaphoresis, Fever, Lightheadedness, Acid Reflux and Palpitations Narrative Narrative: Patient is 61-year-old woman who has had upper respiratory symptoms for 2 weeks. She presents because of transient left-sided chest pain that lasts seconds. The pain is not pleuritic. She does report dyspnea and dyspnea on exertion. She states she has to stop when she gets the top of steps which is unusual for her. She has no history of PE or DVT. Denies leg pain, swelling discoloration. She denies recent fever or chills. She denies rhinorrhea. She does report mild congestion plus minus postnasal drainage. She denies sore throat. She does have a cough. Cough is productive of colored sputum. She does have history of asthma. She has not been on prednisone in the last 3 to 6 months. She is never required intubation for her asthma. She denies headache, decreased hearing, ringing in ears or drainage. She denies neck pain or neck stiffness. She denies photophobia. She denies nausea or vomiting. She has had diarrhea the past couple of days. She denies dysuria, frequency, urgency or hematuria. She denies rash. She presently denies myalgias or arthralgias. She has not been tested for COVID. She is not vaccinated either. She has had ill contacts Prior Similar Symptoms: No Recent Illness/Hospitalization: Yes CVD Risk Factors: Negative for Hypertension, Diabetes, Hypercholesterolemia, Family History 1' </=55 and Smoking PE Risk Factors: Negative for Recent Travel/Surgery, Recent Immobilization, Prior DVT or PE, Cancer and OCP + Smoking + >/=35 TAD Risk Factors: Negative for Marfan's Syndrome, Hypertension and Family History [facility] Medical History Anxiety Asthma GERD (gastroesophageal reflux disease) Home Medications budesonide-formoterol [Symbicort] 2 puff INHALATION BID PRN 10/23/21 [History Last Taken Unknown] calcium carb-magnesium ox,carb [Milan-Mag] 1 tab PO DAILY 03/23/21 [History Last Taken Unknown] cholecalciferol (vitamin D3) [Vitamin D3] 10 mcg PO DAILY 03/23/21 [History Last Taken Unknown] hydrocodone-acetaminophen 1 tab PO Q4H PRN PRN 2 Days #10 tablet 03/23/21 [Rx Last Taken Unknown] ondansetron 8 mg PO Q8H PRN PRN #20 tab 03/23/21 [Rx Last Taken Unknown] pantoprazole 40 mg PO DAILY #30 tab 03/23/21 [Rx Last Taken Unknown] zinc 100 mg PO DAILY 03/23/21 [History Last Taken Unknown] Allergy/AdvReac Type Severity Reaction Status Date / Time No Known Allergies Allergy Verified 06/11/21 10:02 Surgical History History of appendectomy Social History (Updated 06/11/21 @ 10:[address] Baljeet Huggins MD) household members: spouse Smoking Status: Former smoker substance use type: does not use ROS ROS ED Constitutional Constitutional ED: Denies chills, fever(s), subjective, sweats or weight loss Eyes Eyes: Reports none ENT ENT ED: Denies ear pain, rhinorrhea or sore throat Cardiovascular Cardiovascular: Reports as per HPI; Denies orthopnea or paroxysmal nocturnal dyspnea Respiratory/Chest Respiratory/Chest: Reports cough, dyspnea, dyspnea on exertion and sputum; Denies orthopnea or paroxysmal nocturnal dyspnea Gastrointestinal Gastrointestinal: Reports diarrhea; Denies abdominal pain, constipation, nausea or vomiting Genitourinary Genitourinary ED: Denies dysuria, hematuria or urinary frequency Musculoskeletal Musculoskeletal: Denies arthralgias, back pain, myalgias or neck pain Integumentary Denies Abrasions or rash Neurologic Neurologic: Denies headache(s), paresthesias or weakness Endocrine Endocrinology: Denies polydipsia, polyphagia or polyuria Hematologic/Lymphatic Hematologic/Lymphatic: Denies easy bleeding or easy bruising EXAM Physical Exam Const Vital Signs: 06/11/21 09:58 06/11/21 10:37 06/11/21 11:00 Temperature 97.7 F L Temperature Source Oral Pulse Rate 102 H 81 Respiratory Rate 16 18 16 Respiratory Effort Blood Pressure 169/94 H Blood Pressure Mean 119 Pulse Ox 100 Oxygen Delivery Method Room Air 06/11/21 11:04 06/11/21 11:54 Temperature Temperature Source Pulse Rate 80 Respiratory Rate 15 Respiratory Effort Normal Non-Labored Blood Pressure Blood Pressure Mean Pulse Ox 98 Oxygen Delivery Method Room Air Positive well nourished and well developed; Negative for obese, cachectic, contractures or unkempt General Appearance ED: well developed and NAD; Negative for unkempt, cachectic, contractures or pallor Nutritional Appearance: Negative for cachectic or obese HEENT Reports TM's clear and moist mucous membranes HEENT Narrative: Nares patent. normocephalic Tympanic Membrane ED: Yes TM's clear Eyes PERRL and EOMs intact bilaterally General Eye ED: Negative for pale conjunctiva or scleral icterus Neck no lymphadenopathy, supple and no JVD Resp normal respiratory effort and No clear to auscultation bilaterally Effort and Inspection: Negative for respiratory distress Auscultation: rales and wheezes expiratory wheezes (With forced expiration only. There is slight increase in expiratory phase.); Negative for rhonchi Cardio regular rate, regular rhythm, S1 normal heart sound and S2 normal heart sound GI normal to inspection, nondistended, normoactive bowel sounds, soft to palpation, non-tender, non-distended and no masses Back/Spine no CVA tenderness and no thoracic nor lumbar tenderness Extremity normal to inspection Extremity Narrative: There is no asymmetry, swelling, discoloration, leg vein distention, palpable cords or tenderness along the distribution of the deep venous system. General Extremety ED: Negative for edema, pulses abnormal or tenderness General Extremity: Negative for edema or pulses abnormal Neuro oriented x3 and CN's II-XII intact bilaterally Sensorium / Orientation: awake and alert Psych mental status grossly normal Appearance: Negative for unkempt Skin no rashes or lesions noted and no wounds General Skin Exam: Negative for jaundice or pallor MDM MDM Lab Data Attestation: I reviewed the patient's lab results. Lab results narrative: Laboratory test unremarkable. COVID PCR test is pending. Labs: Laboratory Results - last 24 hr 06/11/21 06/11/21 11:00 11:00 WBC 4.8 RBC 4.62 Hgb 14.5 Hct 43.6 MCV 94.4 MCH 31.4 MCHC 33.3 RDW Std Deviation 41.4 RDW Coeff of Fabrice 11.9 Plt Count 326 MPV 8.8 Immature Gran % (Auto) 0.200 Neut % (Auto) 62.4 Lymph % (Auto) 27.1 [place] % (Auto) 9.1 Eos % (Auto) 0.6 Baso % (Auto) 0.6 Absolute Neuts (auto) 3.0 Absolute Lymphs (auto) 1.31 Nucleated RBC % 0 Sodium 140 Potassium 3.6 Chloride 106 Carbon Dioxide 25.0 Anion Gap 9 BUN 15 Creatinine 0.80 Estim Creat Clear Calc 73.55 Est GFR (MDRD) Af Amer 93 Est GFR (MDRD) Non-Af 77 BUN/Creatinine Ratio 18.7 Glucose 101 Calcium 9.7 Radiography Chest X-Ray - ED: 1 View and Read by ED Physician (Single view portable chest x- ray was interpreted by me as negative for any acute process. There is evidence of hyperaeration. Cardiac silhouette size normal. There is no infiltrate effusion noted. [place] structures are unremarkable. Mediastinum is unremarkable.) Diagnostic Testing: Clinical Impression(s) from Imaging Studies Chest X-Ray 06/11/21 10:56 IMPRESSION: Hyperinflation. The lungs are clear. Electronically Signed: Donnell Duval MD at 11:14 EST , Service support , Rhythm Strip Rhythm Strip: Sinus Rhythm Rate: 93 Ectopy: None Discharge Plan Triage Chief Complaint: Chest Pain ED Provider: Baljeet Huggins Dx/Rx/DC Orders Clinical Impression: Intermittent left-sided chest pain, Upper respiratory infection with cough and congestion Instructions: Coronavirus Disease 2019 (COVID-19): Overview, ED URI, Viral, No Abx (Adult) Prescriptions: No Action zinc 100 mg Tablet 100 mg PO DAILY RF: 0 cholecalciferol (vitamin D3) [Vitamin D3] 10 mcg (400 unit) Capsule 10 mcg PO DAILY RF: 0 budesonide-formoterol [Symbicort] 80-4.5 mcg/actuation HFA aerosol inhaler 2 puff INHALATION BID PRN (Reason: Shortness Of Breath) RF: 0 [place]-Mag 200 mg calcium- 100 mg Tablet,Chewable 1 tab PO DAILY RF: 0 hydrocodone-acetaminophen [hydrocodone-acetaminophen] 1 TABLET tablet 1 tab PO Q4H PRN PRN (Reason: Pain) 2 Days Qty: 10 RF: 0 ondansetron [ondansetron] 4 MG tablet 8 mg PO Q8H PRN PRN (Reason: Nausea) Qty: 20 RF: 0 pantoprazole 40 mg tablet,delayed release (DR/EC) 40 mg PO DAILY Qty: 30 RF: 0 Primary Care Provider: Jennifer Pittman Referrals: Jennifer Pittman MD [Primary Care Provider] - As Needed Disposition Disposition: Home, Self Care
--- NOTE | 2021-06-11 10:56 | RAD_ITS ---
STUDY: X-RAY CHEST REASON FOR EXAM: Female, 61 years old. Dyspnea, mild wheezing, cough, suspect COVID came TECHNIQUE: Single AP portable view of the chest. COMPARISON: Comparison is made with prior study 03/23/2021. FINDINGS: EKG electrodes are seen. There is hyperinflation of the lungs consistent with chronic obstructive lung disease (COPD). There is no demonstrated pleural abnormality. Normal size heart. Normal mediastinum and sanam. Normal visualized pulmonary arteries. Normal visualized aortic arch and descending thoracic aorta. Normal visualized thoracic spine. Normal visualized ribs, clavicles, and shoulders. There is no demonstrated abnormality of the visualized soft tissue structures of the upper abdomen. RAD/Chest 1 View (Portable) IMPRESSION: Hyperinflation. The lungs are clear. Electronically Signed: Donnell Duval MD at 11:14 EST , Service support ,
[2021-06-11 11:00] VITALS: PULSE 81; RESP 16
[2021-06-11 11:05] LABS: Absolute Lymphocyte Count 1.31 X10^3/uL (0.83-4.51); Basophil# 0.03 X10^3/uL; Basophil% 0.6 % (0-1); Eosinophil# 0.03 X10^3/uL; Eosinophils% 0.6 % (0-5); Hematocrit 43.6 % (37-47); Hemoglobin 14.5 g/dL (12.0-15.0); Lymphocyte # 1.31 X10^3/ul (0.83-4.51); Lymphocyte % 27.1 % (19-41); Mean Corp Hgb Conc 33.3 g/dL (32-36); Mean Corpuscular Hgb 31.4 pg (27.0-32.0); Mean Corpuscular Volume 94.4 fL (81-99); Mean Platelet Vol. 8.8 fl (6.2-12.0); Monocyte# 0.44 X10^3/uL; Monocyte% 9.1 % (0-10); NRBC Flagged by Analyzer 0 % (0-5); Neutrophil # 3.01 X10^3/uL (2.7-7.7); Neutrophil % 62.4 % (47-70); Platelet Count 326 K/mm3 (150-450); RBC Distribution Width CV 11.9 % (11.6-14.6); RBC Distribution Width SD 41.4 fl (35.1-43.9); Red Blood Count 4.62 M/mm3 (4.2-5.4); White Blood Count 4.8 K/mm3 (4.4-11.0)
[2021-06-11 11:19] LABS: Anion Gap 9 (5-15); BUN 15 mg/dL (7-18); BUN/Creat Ratio 18.7 RATIO (10-20); Calcium,Total 9.7 mg/dL (8.5-10.1); Chloride 106 mmol/L (98-107); EST Glomerular Filtration Rate 77 mL/min (>60); Est Glom Filt Rate - Afr Amer 93 mL/min (>60); Estimated Creatinine Clearance 73.55 ml/min; Glucose 101 mg/dL (74-106); Potassium 3.6 mmol/L (3.5-5.1); Sodium Level 140 mmol/L (136-145)
[2021-06-11 11:54] VITALS: PULSE 80; RESP 15; O2SAT 98
[2021-06-11 12:32] VITALS: BP 135/79
== END 2021-06-11 12:32 | disposition home or self-care (01) ==
PROVIDERS: Emergency Provider Emergency Medicine; PCP Internal Medicine; Visit Provider Emergency Medicine
DX: R07.89 Other chest pain (principal); J06.9 Acute upper respiratory infection, unspecified; Z87.891 Personal history of nicotine dependence
CPT/HCPCS: 71045; 80048; 85025; 87635; 93005; 94640; 99284; A4216; U0003; U0005

== ENCOUNTER 2021-09-01 13:40 | Emergency (ER) | payer OTHER, SELFPAY ==
[2021-09-01 13:43] VITALS: BP 174/89; PULSE 89; RESP 18; TEMP 37.1; O2SAT 100; BMI 22.5
--- NOTE | 2021-09-01 13:52 | EKG12_ITS ---
Test Reason : CP Blood Pressure : / mmHG Vent. Rate : 098 BPM Atrial Rate : 098 BPM P-R Int : 140 ms QRS Dur : 092 ms QT Int : 368 ms P-R-T Axes : 087 069 065 degrees QTc Int : 469 ms Normal sinus rhythm Nonspecific ST abnormality Abnormal ECG Confirmed by SONIA MOYA, FAHEEM ([id number]), editor publications HERVE HENDRICKS ([id number]) on 09/12/2021 1:24:24 PM Referred By: ZAIRE Confirmed By:FAHEEM SCOTT MD
--- NOTE | 2021-09-01 13:54 | ED.VIS.CHEST ---
HPI History of Present Illness Chief Complaint: Chest Pain Informant: patient Onset/Context/Timing Onset: Today Activity at onset: sudden Timing: Intermittent Quality: Positive for Sharp and Stabbing Location: Substernal Current Severity: Mild Maximum Severity: Mild Worsened By: Nothing Relieved By: Nothing Associated Symptoms: Negative for Nausea, Vomiting, Diaphoresis, Dyspnea, Cough, Fever, Lightheadedness, Acid Reflux and Palpitations Narrative Narrative: 1-year-old female history of reflux and asthma. States she was asleep around 2 AM this morning was awoken by midsternal chest discomfort. Said it sharp and stabbing. There is no associated shortness of breath, nausea or diaphoresis. At times it seems to radiate in her back. She initially took some Mylanta which she thought helped but then she said the pain returned she took it again and did not think it did much. States that sharp and stabbing pain. She denies any fever, chills or cough. No leg pain or swelling. She has no cardiac history. She has no history of DVT or PE. No risk factors. No recent travel, surgery or immobilization. Prior Similar Symptoms: Yes Recent Illness/Hospitalization: No CVD Risk Factors: Negative for Hypertension, Diabetes, Hypercholesterolemia, Family History 1' </=55 and Smoking PE Risk Factors: Negative for Recent Travel/Surgery, Recent Immobilization, Prior DVT or PE, Cancer and OCP + Smoking + >/=35 TAD Risk Factors: Negative for Marfan's Syndrome and Hypertension [facility] Medical History Anxiety Asthma GERD (gastroesophageal reflux disease) Home Medications budesonide-formoterol [Symbicort] 2 puff INHALATION BID PRN 03/23/21 [History Last Taken Unknown] calcium carb-magnesium ox,carb [Milan-Mag] 1 tab PO DAILY 03/23/21 [History Last Taken Unknown] cholecalciferol (vitamin D3) [Vitamin D3] 10 mcg PO DAILY 03/23/21 [History Last Taken Unknown] hydrocodone-acetaminophen 1 tab PO Q4H PRN PRN 2 Days #10 tablet 03/23/21 [Rx Last Taken Unknown] ondansetron 8 mg PO Q8H PRN PRN #20 tab 03/23/21 [Rx Last Taken Unknown] pantoprazole 40 mg PO DAILY #30 tab 03/23/21 [Rx Last Taken Unknown] zinc 100 mg PO DAILY 03/23/21 [History Last Taken Unknown] pantoprazole [Protonix] 40 mg PO DAILY #30 tab 09/01/21 [Rx Last Taken Unknown] Allergy/AdvReac Type Severity Reaction Status Date / Time No Known Allergies Allergy Verified 09/01/21 13:44 Surgical History History of appendectomy Social History household members: spouse Smoking Status: Former smoker substance use type: does not use ROS ROS ED ROS Narrative Chest pain. Otherwise no other complaints. Review of Systems ROS Unobtainable: Denies due to encephalopathy Constitutional Constitutional ED: Denies fever(s) or subjective Eyes Eyes: Denies none or change in vision ENT ENT ED: Denies ear pain Cardiovascular Cardiovascular: Reports as per HPI and chest pain; Denies palpitations or racing heartbeat Respiratory/Chest Respiratory/Chest: Denies cough, dyspnea or sputum Gastrointestinal Gastrointestinal: Denies abdominal pain, diarrhea, nausea or vomiting Genitourinary Genitourinary ED: Denies dysuria or hematuria Musculoskeletal Musculoskeletal: Denies arthralgias or myalgias Integumentary Denies abscess or rash Neurologic Neurologic: Denies headache(s) or weakness Psychiatric Psychiatric: Denies depression Endocrine Endocrinology: Denies polyuria Hematologic/Lymphatic Hematologic/Lymphatic: Denies easy bruising Allergic/Immunologic Allergic/Immunologic ED: Denies urticaria EXAM Physical Exam Narrative Exam Narrative: Well-appearing 61-year-old female. Vital signs stable afebrile. Her pulse ox 100% on room air no signs of hypoxia. H EENT exam unremarkable. Neck nontender no JVD. No lymphadenopathy. Lungs clear to auscultation bilaterally. Heart regular rate and rhythm rate about 95. Known murmur. No chest wall tenderness. Abdomen soft she has some very minimal epigastric tenderness. No rebound guarding or rigidity. Right upper and lower quadrant unremarkable. No distention. No mass. She is moving all 4 extremities. Calves are nontender without edema or cords. Radial pulses are equal symmetrical. Back nontender. Neurologically she is awake and alert. Const Vital Signs: 09/01/21 13:43 04/03/22 14:03 Temperature 98.7 F Temperature Source Temporal Pulse Rate 89 Respiratory Rate 18 Blood Pressure 174/89 H Blood Pressure Mean 117 Pulse Ox 100 98 Oxygen Delivery Method Room Air Room Air Positive well nourished and well developed; Negative for obese, cachectic, contractures or unkempt General Appearance ED: well developed and NAD; Negative for unkempt, cachectic, contractures or pallor Nutritional Appearance: Negative for cachectic or obese HEENT Reports moist mucous membranes normocephalic and atraumatic Eyes PERRL and EOMs intact bilaterally General Eye ED: Negative for pale conjunctiva or scleral icterus Neck no lymphadenopathy, supple and no JVD General: Negative for tenderness Chest Wall inspection of chest normal and palpation of chest normal Chest: Negative for tenderness Resp normal respiratory effort and clear to auscultation bilaterally Effort and Inspection: respiratory distress Auscultation: Negative for rales, rhonchi, wheezes or diminished lung sounds Cardio regular rate, regular rhythm, S1 normal heart sound, S2 normal heart sound and no murmurs Rate: Negative for bradycardia or tachycardic GI normal to inspection, nondistended, normoactive bowel sounds, soft to palpation, non-distended and no masses; Negative for non-tender GI Narrative: Mild epigastric tenderness. Back/Spine no CVA tenderness and no thoracic nor lumbar tenderness General Back: Negative for CVA tenderness Extremity normal to inspection General Extremety ED: Negative for edema, pulses abnormal or tenderness General Extremity: Negative for edema or pulses abnormal Neuro oriented x3 and CN's II-XII intact bilaterally Sensorium / Orientation: awake, alert, oriented to person, oriented to place and oriented to time Motor Exam: strength 5/5 throughout Psych mental status grossly normal Appearance: Negative for unkempt Mood & Affect: Negative for depressed or tearful Skin no rashes or lesions noted and no wounds General Skin Exam: Negative for jaundice or pallor Rashes: No rashes noted Trauma: Negative for abrasion Heart Score History: Slightly/Non-Suspicious ECG: Normal Age: >45 - <65 years Risk Factors: No Risk Factors Troponin: </= Normal Limit Score: 1 MDM MDM MDM Narrative Medical decision making narrative: 61-year-old female with atypical chest pain. No recent exertional symptoms. No cardiac history. No history of a DVT or PE. No significant risk factors. Exam benign. EKG unremarkable. Cardiac work-up will be entertained. Also D-dimer. She requested something for anxiety and will be given a milligram of IV Ativan. Repeat exam patient is doing well. She said the IV Ativan helped her a lot with her anxiety and the GI cocktail seemed to help her with the discomfort. She and I and her went over all of her test. They are comfortable with her being discharged home. She has had a discomfort for around 10 hours so I do not think we need to do a repeat troponin. Lab Data Attestation: I reviewed the patient's lab results. Lab results narrative: CBC unremarkable. White count of 5. H&H of 14 and 42. Normal platelets. D-dimer is negative at less than 0.27. Electrolytes normal gap of 7 normal BUN and creatinine. Glucose 100. Troponin less than 3. Chest x-ray normal. Labs: Laboratory Results - last 24 hr 09/01/21 09/01/21 09/01/21 14:00 14:00 14:00 WBC 5.6 RBC 4.52 Hgb 14.5 Hct 42.4 MCV 93.8 MCH 32.1 H MCHC 34.2 RDW Std Deviation 43.2 RDW Coeff of Fabrice 12.3 Plt Count 324 MPV 8.9 Immature Gran % (Auto) 0.400 Neut % (Auto) 61.7 Lymph % (Auto) 23.7 [place] % (Auto) 12.4 H Eos % (Auto) 0.5 Baso % (Auto) 1.3 H Absolute Neuts (auto) 3.4 Absolute Lymphs (auto) 1.32 Nucleated RBC % 0 D-Dimer Quant (PE/DVT) < 0.27 L Sodium 138 Potassium 3.6 Chloride 105 Carbon Dioxide 26.0 Anion Gap 7 BUN 13 Creatinine 0.83 Estim Creat Clear Calc 70.89 Est GFR (MDRD) Af Amer 90 Est GFR (MDRD) Non-Af 74 BUN/Creatinine Ratio 15.7 Glucose 100 Calcium 9.5 Troponin I High Sens < 3 L Radiography Chest X-Ray - ED: 1 View, Read by ED Physician, Heart, Lungs, Mediastinum, Bony Structures and No Acute Disease Diagnostic Testing: Clinical Impression(s) from Imaging Studies Chest X-Ray 09/01/21 14:05 IMPRESSION: COPD. Electronically Signed: Curtis Covarrubias MD at 14:49 EDT , Chest x-ray, portable, single view showed no acute abnormality. Normal cardiac silhouette. Normal mediastinum. Normal lung portillo. Rhythm Strip Rhythm Strip: Sinus Rhythm Rate: 98 Ectopy: None EKG Initial EKG: Attestation: I personally reviewed and interpreted this EKG as follows: Interpretation: Sinus Rhythm and No Acute Injury Pattern Comments: Normal sinus rhythm rate of 98 no acute signs of WI or ischemia. Discharge Plan Triage Chief Complaint: Chest Pain ED Provider: Angel Solis Dx/Rx/DC Orders Clinical Impression: Chest pain, Hx of gastroesophageal reflux (GERD) Instructions: ED Chest Pain, Uncertain Cause Prescriptions: New pantoprazole [Protonix] 40 mg tablet,delayed release (DR/EC) 40 mg PO DAILY Qty: 30 RF: 0 No Action zinc 100 mg Tablet 100 mg PO DAILY RF: 0 cholecalciferol (vitamin D3) [Vitamin D3] 10 mcg (400 unit) Capsule 10 mcg PO DAILY RF: 0 budesonide-formoterol [Symbicort] 80-4.5 mcg/actuation HFA aerosol inhaler 2 puff INHALATION BID PRN (Reason: Shortness Of Breath) RF: 0 [place]-Mag 200 mg calcium- 100 mg Tablet,Chewable 1 tab PO DAILY RF: 0 hydrocodone-acetaminophen [hydrocodone-acetaminophen] 1 TABLET tablet 1 tab PO Q4H PRN PRN (Reason: Pain) 2 Days Qty: 10 RF: 0 ondansetron [ondansetron] 4 MG tablet 8 mg PO Q8H PRN PRN (Reason: Nausea) Qty: 20 RF: 0 pantoprazole 40 mg tablet,delayed release (DR/EC) 40 mg PO DAILY Qty: 30 RF: 0 Primary Care Provider: Jennifer Pittman Referrals: Jennifer Pittman MD [Primary Care Provider] - 3-5 Days Activity Restrictions/Additional Instructions: All your test today were unremarkable. No signs of a heart attack nor blood clot or any other serious problem. This may or may not be related to reflux. Protonix daily. Follow-up with your primary care physician. Disposition Disposition: Home, Self Care
[2021-09-01 14:03] VITALS: O2SAT 98
--- NOTE | 2021-09-01 14:05 | RAD_ITS ---
STUDY: X-RAY CHEST REASON FOR EXAM: Female, 61 years old. chest pain TECHNIQUE: 2 AP portable view of the chest. COMPARISON: June 11, 2021 FINDINGS: Chronic hyperinflation of the lungs with mild cystic emphysematous changes. No consolidation or infiltrates are seen. No pneumothorax is present. The lungs are clear and expanded. There is no demonstrated pleural abnormality. Normal size heart. Normal mediastinum and sanam. Normal visualized pulmonary arteries. There is atherosclerotic calcification of the aortic arch with tortuosity. There are diffuse degenerative changes of the visualized thoracic spine. Normal visualized ribs, clavicles, and shoulders. There is no demonstrated abnormality of the visualized soft tissue structures of the upper abdomen. RAD/Chest 1 View (Portable) IMPRESSION: COPD. Electronically Signed: Curtis Covarrubias MD at 14:49 EDT ,
[2021-09-01 14:07] LABS: Absolute Lymphocyte Count 1.32 X10^3/uL (0.83-4.51); Absolute Neutrophil Count 3.4 X10^3/uL (2.0-7.7); Basophil# 0.07 X10^3/uL; Basophil% 1.3 % (0-1); Eosinophil# 0.03 X10^3/uL; Eosinophils% 0.5 % (0-5); Hematocrit 42.4 % (37-47); Hemoglobin 14.5 g/dL (12.0-15.0); Lymphocyte # 1.32 X10^3/ul (0.83-4.51); Lymphocyte % 23.7 % (19-41); Mean Corp Hgb Conc 34.2 g/dL (32-36); Mean Corpuscular Hgb 32.1 pg (27.0-32.0); Mean Corpuscular Volume 93.8 fL (81-99); Mean Platelet Vol. 8.9 fl (6.2-12.0); Monocyte# 0.69 X10^3/uL; Monocyte% 12.4 % (0-10); NRBC Flagged by Analyzer 0 % (0-5); Neutrophil # 3.44 X10^3/uL (2.7-7.7); Neutrophil % 61.7 % (47-70); Platelet Count 324 K/mm3 (150-450); RBC Distribution Width CV 12.3 % (11.6-14.6); RBC Distribution Width SD 43.2 fl (35.1-43.9); Red Blood Count 4.52 M/mm3 (4.2-5.4); White Blood Count 5.6 K/mm3 (4.4-11.0)
[2021-09-01] MEDS: Pantoprazole Sodium 40 MG Tablet PO (14:11)
[2021-09-01] MEDS: Mag Hydrox/Al Hydrox/Simeth 30 ML UDC PO (14:11)
[2021-09-01] MEDS: LORazepam 2 MG/ML Syringe 1 MG IV (14:11)
[2021-09-01 14:20] LABS: D-Dimer Quantitative (DVT/PE) < 0.27 FEU/ug/m (0.27-0.49)
[2021-09-01 14:23] LABS: Anion Gap 7 (5-15); BUN 13 mg/dL (7-18); BUN/Creat Ratio 15.7 RATIO (10-20); Calcium,Total 9.5 mg/dL (8.5-10.1); Chloride 105 mmol/L (98-107); Creatinine, Serum 0.83 mg/dL (0.55-1.02); EST Glomerular Filtration Rate 74 mL/min (>60); Est Glom Filt Rate - Afr Amer 90 mL/min (>60); Estimated Creatinine Clearance 70.89 ml/min; Glucose 100 mg/dL (74-106); Potassium 3.6 mmol/L (3.5-5.1); Sodium Level 138 mmol/L (136-145); Troponin-I HS (w/2H Reflex) < 3 pg/mL (3.0-54.0)
[2021-09-01 14:58] VITALS: BP 151/96; PULSE 82; RESP 20; O2SAT 100
[2021-09-01 15:19] VITALS: BP 162/86; PULSE 79; RESP 16; O2SAT 99
[2021-09-01 16:05] LABS: Reflex Troponin-HS? (from REC) Y
== END 2021-09-01 15:27 | disposition home or self-care (01) ==
PROVIDERS: Emergency Provider Emergency Medicine; PCP Internal Medicine; Visit Provider Emergency Medicine
DX: R07.9 Chest pain, unspecified (principal); Z87.891 Personal history of nicotine dependence; F41.9 Anxiety disorder, unspecified; K21.9 Gastro-esophageal reflux disease without esophagitis; J45.909 Unspecified asthma, uncomplicated
CPT/HCPCS: 71045; 80048; 84484; 85025; 85379; 93005; 96374; 99284; A4216

== ENCOUNTER 2022-11-12 18:44 | Emergency (ER) | payer OTHER, SELFPAY ==
[2022-11-12 18:45] VITALS: BP 165/83; PULSE 84; RESP 14; TEMP 36.1; O2SAT 100; BMI 23.3
--- NOTE | 2022-11-12 19:05 | EDS_ITS ---
HPI History of Present Illness Chief Complaint: Upper Extremity Injury Detail of Chief Complaint: Injury to right arm Informant: patient Narrative Narrative: Patient presents the emergency department after sustaining an injury to her right arm. Patient states that she was walking her great Kevan who was on a leash who then took off after something causing her to fall and get dragged by the dog. Patient states everything happened very quickly she is not sure how she hurt her arm. She complains of pain about the wrist and elbow. She is right-hand dominant. [facility] Medical History Anxiety Asthma GERD (gastroesophageal reflux disease) Home Medications budesonide-formoterol HFA 80 mcg-4.5 mcg/actuation aerosol inhaler (Symbicort) 2 puff inhalation BID PRN Shortness Of Breath 03/23/21 [History Last Taken Unknown] calcium carbonate 200 mg-magnesium oxide,carbonate 100 mg chew tablet ([place]-Mag) 1 tab PO DAILY 03/23/21 [History Last Taken Unknown] cholecalciferol (vitamin D3) 10 mcg (400 unit) capsule (Vitamin D3) 10 mcg PO DAILY 03/23/21 [History Last Taken Unknown] hydrocodone-acetaminophen 5-325mg 5mg-325mg 1 tab PO Q4H PRN PRN Pain 2 days #10 TABLETS 03/23/21 [Rx Last Taken Unknown] ondansetron 4 mg disintegrating tablet 8 mg PO Q8H PRN PRN Nausea #20 tabs 03/23/21 [Rx Last Taken Unknown] pantoprazole 40 mg tablet,delayed release 40 mg PO DAILY #30 tabs 03/23/21 [Rx Last Taken Unknown] zinc 100 mg tablet 100 mg PO DAILY 03/23/21 [History Last Taken Unknown] pantoprazole 40 mg tablet,delayed release (Protonix) 40 mg PO DAILY #30 tabs 09/01/21 [Rx Last Taken Unknown] hydrocodone-acetaminophen 5-325mg 5mg-325mg 1 tab PO Q4H PRN PRN Pain 2 days #15 TABLETS 11/12/22 [Rx Last Taken Unknown] Allergy/AdvReac Type Severity Reaction Status Date / Time No Known Allergies Allergy Verified 11/12/22 18:45 Surgical History History of appendectomy Social History household members: spouse Smoking Status: Former smoker substance use type: does not use ROS ROS ED Review of Systems ROS Unobtainable: other Constitutional Constitutional ED: Reports lethargy; Denies chills, fever(s), sweats or weight loss Eyes Eyes: Denies blurry vision, change in vision or diplopia ENT ENT ED: Denies rhinorrhea or sore throat Cardiovascular Cardiovascular: Denies chest pain, orthopnea or racing heartbeat Respiratory/Chest Respiratory/Chest: Denies cough, dyspnea, dyspnea on exertion, orthopnea or sputum Gastrointestinal Gastrointestinal: Denies abdominal pain, diarrhea, nausea or vomiting Genitourinary Genitourinary ED: Denies dysuria, hematuria or urinary frequency Musculoskeletal Musculoskeletal: Reports other Details: Right wrist injury and right elbow injury/pain ; Denies arthralgias, back pain, myalgias or neck pain Integumentary Denies abscess, Abrasions or rash Neurologic Neurologic: Denies headache(s) or weakness Psychiatric Psychiatric: Denies anxiety, depression or suicidal thoughts Endocrine Endocrinology: Denies polydipsia, polyphagia or polyuria Hematologic/Lymphatic Hematologic/Lymphatic: Denies easy bleeding, easy bruising or lymphadenopathy Allergic/Immunologic Allergic/Immunologic ED: Denies mouth swelling, tongue swelling or urticaria EXAM Physical Exam Const Vital Signs: 11/12/22 18:45 Temperature 97 F L Temperature Source Temporal Pulse Rate 84 Respiratory Rate 14 Blood Pressure 165/83 H Blood Pressure Mean 110 Pulse Ox 100 Oxygen Delivery Method Room Air Positive well nourished and well developed General Appearance ED: well developed and NAD HEENT Reports TM's clear and moist mucous membranes normocephalic and atraumatic; Negative for trauma or tenderness Tympanic Membrane ED: Yes TM's clear Eyes PERRL and EOMs intact bilaterally General Eye ED: Negative for pale conjunctiva or scleral icterus Neck no lymphadenopathy, supple and no JVD General: Negative for tenderness Chest Wall inspection of chest normal and palpation of chest normal Chest: Negative for tenderness Resp normal respiratory effort and clear to auscultation bilaterally Effort and Inspection: Negative for respiratory distress or pain with movement Auscultation: Negative for rhonchi, wheezes or diminished lung sounds Cardio regular rate, regular rhythm, S1 normal heart sound, S2 normal heart sound and no murmurs Peripheral Pulses: pulses 2+ throughout GI normal to inspection, nondistended, normoactive bowel sounds, soft to palpation, non-tender, non-distended and no masses Back/Spine no CVA tenderness and no thoracic nor lumbar tenderness Extremity Extremity Narrative: Right arm-patient has soft tissue swelling diffusely about the wrist with some ecchymosis and bruising. She also has some diffuse tenderness over the right elbow over the posterior olecranon. She has diminished range of motion flexion extension at the right secondary to pain and swelling. She is neurovascular intact distally. General Extremety ED: Negative for edema General Extremity: Negative for edema Neuro oriented x3, CN's II-XII intact bilaterally, no sensory deficits noted and gait normal Sensorium / Orientation: awake, alert, oriented to person, oriented to place and oriented to time Motor Exam: strength 5/5 throughout and strength abnormal Psych mental status grossly normal Skin no rashes or lesions noted and no wounds MDM MDM MDM Narrative Medical decision making narrative: Patient presents with injury to her right arm after being dragged by her dog by the leash. Patient had x-rays of the right wrist that showed a triquetrum fracture. Patient x-rays of the elbow were unremarkable. Spoke with Dr. Hilliard who recommended Velcro wrist splint and he will see her in the office in follow- up. Patient was given a dose of [employer] for pain. She will be given a prescription for [employer]. Radiography Diagnostic Testing: Three-view x-rays of the right wrist obtained interpreted by myself as no acute fractures or dislocations. Radiology in agreement. Three-view x-rays of the right wrist obtained interpreted by myself as fracture of the triquetrum and radiology in agreement. Discharge Plan Triage Chief Complaint: Upper Extremity Injury ED Provider: Carmelina Horton Dx/Rx/DC Orders Clinical Impression: Fracture of triquetrum Instructions: Wrist Fracture Prescriptions: New hydrocodone-acetaminophen [hydrocodone-acetaminophen] 5-325 mg tablet 1 tab PO Q4H PRN PRN (Reason: Pain) 2 Days Qty: 15 0RF No Action zinc 100 mg Tablet 100 mg PO DAILY cholecalciferol (vitamin D3) [Vitamin D3] 10 mcg (400 unit) Capsule 10 mcg PO DAILY budesonide-formoterol [Symbicort] 80-4.5 mcg/actuation HFA aerosol inhaler 2 puff INHALATION BID PRN (Reason: Shortness Of Breath) [place]-Mag 200 mg calcium- 100 mg Tablet,Chewable 1 tab PO DAILY hydrocodone-acetaminophen [hydrocodone-acetaminophen] 1 TABLET tablet 1 tab PO Q4H PRN PRN (Reason: Pain) 2 Days Qty: 10 0RF ondansetron [ondansetron] 4 MG tablet 8 mg PO Q8H PRN PRN (Reason: Nausea) Qty: 20 0RF pantoprazole 40 mg tablet,delayed release (DR/EC) 40 mg PO DAILY Qty: 30 0RF pantoprazole [Protonix] 40 mg tablet,delayed release (DR/EC) 40 mg PO DAILY Qty: 30 0RF Primary Care Provider: Jennifer Pittman Referrals: Jennifer Pittman MD [Primary Care Provider] - Damion Cevallos DO [Med Staff - Active Staff] - 3-5 Days Disposition Disposition: Home, Self Care
--- NOTE | 2022-11-12 19:15 | RAD_ITS ---
STUDY: X-RAY - RIGHT WRIST REASON FOR EXAM: Female, 62 years old. Injury TECHNIQUE: 4 view(s) of the wrist were obtained. COMPARISON: None. FINDINGS: Normal visualized distal radius and ulna. Normal radiocarpal articulation. Normal distal radioulnar articulation. There is density at the dorsal aspect consistent with fracture of the triquetrum. Normal carpal articulations. Normal carpometacarpal articulation of the thumb. Normal second through fifth carpometacarpal articulations. Normal visualized metacarpal bones. The soft tissue structures are unremarkable. RAD/Wrist min 3 Views IMPRESSION: Fracture of the triquetrum. Electronically Signed: Chema Botello MD at 20:08 EDT ,
--- NOTE | 2022-11-12 19:15 | RAD_ITS ---
STUDY: X-RAY - RIGHT ELBOW REASON FOR EXAM: Female, 62 years old. Injury TECHNIQUE: 3 view(s) of the elbow. COMPARISON: None. FINDINGS: Normal visualized humerus, radius and ulna. Normal radiocapitellar and ulnotrochlear articulations. The soft tissue structures are unremarkable. There is no demonstrated fracture. RAD/Elbow min 3 Views IMPRESSION: Normal x-ray examination of the elbow. Electronically Signed: Chema Botello MD at 20:04 EDT ,
[2022-11-12] MEDS: HYDROcodone Bitartrate/Apap 5/325 Tablet PO (20:31)
== END 2022-11-12 21:08 | disposition home or self-care (01) ==
PROVIDERS: Emergency Provider Emergency Medicine; PCP Internal Medicine; Visit Provider Emergency Medicine
DX: S62.111A Displaced fracture of triquetrum [cuneiform] bone, right wrist, initial encounter for closed fracture (principal); Z87.891 Personal history of nicotine dependence; X58.XXXA Exposure to other specified factors, initial encounter; Y93.K1 Activity, walking an animal; J45.909 Unspecified asthma, uncomplicated; Z79.51 Long term (current) use of inhaled steroids; K21.9 Gastro-esophageal reflux disease without esophagitis; Z79.899 Other long term (current) drug therapy; Z90.49 Acquired absence of other specified parts of digestive tract
CPT/HCPCS: 73080; 73110; 99283

== ENCOUNTER 2023-07-13 08:22 | Emergency (ER) | payer BC, OTHER, SELFPAY ==
[2023-07-13 08:23] VITALS: BP 159/105; PULSE 107; RESP 18; TEMP 37.2; O2SAT 99; BMI 22.8
--- NOTE | 2023-07-13 08:41 | CT_ITS ---
STUDY: CT ABDOMEN AND PELVIS WITHOUT CONTRAST REASON FOR EXAM: Female, 63 years old. Kidney Stone. Left flank pain. Difficulty urination. RADIATION DOSAGE (If Supplied By Facility): CTDIvol = ( 6.91 ) mGy, DLP = ( 320.93 ) mGycm TECHNIQUE: Transaxial images were obtained from the dome of the diaphragm to the symphysis pubis without oral contrast, and without intravenous contrast. Sagittal and coronal images were reconstructed. Individualized dose optimization techniques were used for this CT. COMPARISON: None. FINDINGS: The visualized lung bases are unremarkable. The visualized portions of the heart are within normal limits. Normal liver. Normal gallbladder and extrahepatic biliary system. Normal spleen. Normal pancreas. Normal bilateral adrenal glands. Normal right kidney. Normal left kidney. There is a small hiatal hernia. Normal small intestine. Normal colon. The appendix is visualized and appears normal. Normal abdominal aorta. Normal inferior vena cava. Normal retroperitoneum. There is a 3.8 mm calcification in the right mid abdomen most likely representing a calcified mesenteric lymph node. Normal urinary bladder. Normal abdominal wall. There are mild degenerative changes of the visualized lumbar spine. CT/Abdomen/Pelvis without Cont IMPRESSION: No obstructive uropathy is seen. Electronically Signed: Donnell Duval MD at 9:40 EST ,
--- NOTE | 2023-07-13 08:42 | ED.VIS.FEGU ---
HPI HPI - Female History of Present Illness Chief Complaint: Flank Pain Narrative Narrative: 63-year-old female presenting with right flank pain. Onset was a couple of weeks ago. Patient noted she woke up in the morning and thought she had a dull ache in her lower back. She thought it was may be musculoskeletal and the pain has come and gone since then. She has had increased pain in the right flank. She has trouble finding a position of comfort. The pain has been constant since . Patient describes it in the lower back. She is having trouble urinating. No fevers, mild nausea. No abdominal pain. No diarrhea or constipation. No vaginal complaints. PFSH PFSH Allergy/AdvReac Type Severity Reaction Status Date / Time No Known Allergies Allergy Verified 07/13/23 08:30 Social History Smoking Status: Unknown if ever smoked ROS ROS ED Constitutional Constitutional ED: Denies chills, fever(s) or sweats Eyes Eyes: Denies blurry vision or change in vision ENT ENT ED: Denies ear pain or sore throat Cardiovascular Cardiovascular: Denies chest pain, palpitations or racing heartbeat Respiratory/Chest Respiratory/Chest: Denies cough, dyspnea or sputum Gastrointestinal Gastrointestinal: Reports nausea; Denies abdominal pain, constipation, diarrhea or vomiting Genitourinary Genitourinary ED: Reports dysuria and other; Denies hematuria or urinary frequency Musculoskeletal Musculoskeletal: Reports other Details: Right flank pain ; Denies arthralgias, myalgias or neck pain Integumentary Denies abscess, Abrasions or rash Neurologic Neurologic: Denies headache(s), paresthesias or weakness Psychiatric Psychiatric: Denies anxiety, depression, suicidal ideation or suicidal thoughts Endocrine Endocrinology: Denies polydipsia or polyuria EXAM Physical Exam Const Vital Signs: 07/13/23 08:23 Temperature 99 F Temperature Source Temporal Pulse Rate 107 H Respiratory Rate 18 Blood Pressure 159/105 H Blood Pressure Mean 123 Pulse Ox 99 Oxygen Delivery Method Room Air Positive well nourished Constitutional Narrative: Appears to be in pain. General Appearance ED: NAD HEENT Reports moist mucous membranes Eyes PERRL and EOMs intact bilaterally Chest Wall inspection of chest normal Resp normal respiratory effort Auscultation: Negative for rales, rhonchi or wheezes Cardio regular rate and regular rhythm GI normal to inspection, nondistended, normoactive bowel sounds Back/Spine General Back: CVA tenderness right Neuro oriented x3 Sensorium / Orientation: alert Motor Exam: strength 5/5 throughout Psych mental status grossly normal Skin no rashes or lesions noted MDM MDM MDM Narrative Medical decision making narrative: Patient presenting with right flank pain. She is also having difficulty urinating. The problem was intermittent at first and now is constant. No history of kidney stones. Patient presenting with right flank pain. Differential includes colitis, diverticulitis, constipation, appendicitis, UTI, pyelonephritis, renal calculi, ureteral calculi, obstruction, malignancy, dehydration, electrolyte abnormalities, ovarian torsion, ovarian cyst, ectopic . Patient was still having pain after being medicated with morphine and Zofran. She is given a second dose of morphine for her pain. Lab work overall reassuring and her CBC shows a white blood cell count of 4.4. Hemoglobin 16.1. Platelets are 304. Renal function and electrolytes unremarkable. Urinalysis still pending. Given the patient still seems to be a lot of pain we discussed the findings and possible further testing. After further discussion we will obtain a CTA of the abdomen pelvis as her pain seems to be out of proportion to her examination. Lactic acid, lipase, LFTs were added on given her right flank pain to rule out gallbladder source or pancreatic source although her CT does not show anything abnormal. LFTs are normal. Lipase normal. Lactic acid 1.1. CTA of the abdomen pelvis is negative. Patient feeling comfortable at this point. I feel she stable for discharge home. We discussed return precautions and follow-up. Impression: 1. Right flank pain Lab Data Attestation: I reviewed the patient's lab results. Labs: Laboratory Results - last 24 hr 07/13/23 07/13/23 07/13/23 09:00 09:55 10:20 WBC 4.4 RBC 4.98 Hgb 16.1 H Hct 48.2 H MCV 96.8 MCH 32.3 H MCHC 33.4 RDW Std Deviation 43.5 RDW Coeff of Fabrice 12.2 Plt Count 304 MPV 9.0 Immature Gran % (Auto) 0.200 Neut % (Auto) 56.4 Lymph % (Auto) 26.4 [place] % (Auto) 12.5 H Eos % (Auto) 3.4 Baso % (Auto) 1.1 H Absolute Neuts (auto) 2.5 Absolute Lymphs (auto) 1.16 Nucleated RBC % 0 Sodium 140 Potassium 3.7 Chloride 106 Carbon Dioxide 25.0 Anion Gap 9 BUN 14 Creatinine 0.90 Estim Creat Clear Calc 63.70 Est GFR (MDRD) Af Amer 81 Est GFR (MDRD) Non-Af 67 BUN/Creatinine Ratio 15.5 Glucose 109 H Lactic Acid 1.1 Calcium 9.4 Total Bilirubin 0.80 Direct Bilirubin 0.22 AST 22 ALT 22 Alkaline Phosphatase 93 Total Protein 7.9 Albumin 4.3 Globulin 3.6 Lipase 53 Urine Color Yellow Urine Clarity Clear Urine pH 7.0 Ur Specific [place] 1.005 Urine Protein Negative Urine Glucose (UA) Normal Urine Ketones Negative Urine Occult Blood Negative Urine Nitrite Negative Urine Bilirubin Negative Urine Urobilinogen Normal Ur Leukocyte Esterase 100 H Urine RBC 0-5 SEEN Urine WBC 0-5 SEEN Ur Squamous Epith Cells 0-5 SEEN Urine Bacteria 0 SEEN Urine Mucus 0 SEEN Radiography Diagnostic Testing: Clinical Impression(s) from Imaging Studies Abdomen/Pelvis CT 07/13/23 08:41 IMPRESSION: No obstructive uropathy is seen. Electronically Signed: Donnell Duval MD at 9:40 EST , Abdomen CTA 07/13/23 10:35 IMPRESSION: No acute abnormality is seen. Electronically Signed: Donnell Duval MD at 11:05 EST , Discharge Plan Triage Chief Complaint: Flank Pain ED Provider: Kyle Mcfarlane Dx/Rx/DC Orders Instructions: ED Flank Pain, Uncertain Cause Primary Care Provider: Jennifer Pittman Referrals: Jennifer Pittman MD [Primary Care Provider] - Disposition Disposition: Home, Self Care
[2023-07-13] MEDS: 0.9% Normal Saline (1000mL) 1,000 ML 999 ML IV (08:55)
[2023-07-13] MEDS: Ondansetron 4 MG/2 ML Vial IV (08:56)
[2023-07-13] MEDS: Ketorolac 15 MG/ML Vial IV (08:57)
[2023-07-13] MEDS: Morphine 4 MG/ML Syringe IV ×2 (08:57→10:03)
[2023-07-13 09:24] LABS: Absolute Lymphocyte Count 1.16 X10^3/uL (0.83-4.51); Absolute Neutrophil Count 2.5 X10^3/uL (2.0-7.7); Basophil# 0.05 X10^3/uL; Basophil% 1.1 % (0-1); Eosinophil# 0.15 X10^3/uL; Eosinophils% 3.4 % (0-5); Hematocrit 48.2 % (37-47); Hemoglobin 16.1 g/dL (12.0-15.0); Lymphocyte # 1.16 X10^3/ul (0.83-4.51); Lymphocyte % 26.4 % (19-41); Mean Corp Hgb Conc 33.4 g/dL (32-36); Mean Corpuscular Hgb 32.3 pg (27.0-32.0); Mean Corpuscular Volume 96.8 fL (81-99); Monocyte# 0.55 X10^3/uL; Monocyte% 12.5 % (0-10); NRBC Flagged by Analyzer 0 % (0-5); Neutrophil # 2.47 X10^3/uL (2.7-7.7); Neutrophil % 56.4 % (47-70); Platelet Count 304 K/mm3 (150-450); RBC Distribution Width CV 12.2 % (11.6-14.6); RBC Distribution Width SD 43.5 fl (35.1-43.9); Red Blood Count 4.98 M/mm3 (4.2-5.4); White Blood Count 4.4 K/mm3 (4.4-11.0)
[2023-07-13 09:47] LABS: Anion Gap 9 (5-15); BUN 14 mg/dL (7-18); BUN/Creat Ratio 15.5 RATIO (10-20); Calcium,Total 9.4 mg/dL (8.5-10.1); Chloride 106 mmol/L (98-107); EST Glomerular Filtration Rate 67 mL/min (>60); Est Glom Filt Rate - Afr Amer 81 mL/min (>60); Glucose 109 mg/dL (74-106); Potassium 3.7 mmol/L (3.5-5.1); Sodium Level 140 mmol/L (136-145)
[2023-07-13 10:15] LABS: Bacteria 0 SEEN /hpf (None Seen); Mucous, Urine 0 SEEN /hpf (<or=2+)
[2023-07-13 10:22] LABS: Color, Urine Yellow (Yellow); Glucose, Dipstick Normal (Normal); Ketone-Dipstick Negative (Negative); Leukocyte Esterase-Dipstick 100 /ul (Negative); Nitrite-Dipstick Negative (Negative); Occult Blood-Urine Negative /ul (Negative); Protein-Dipstick Negative (Negative); Specific Gravity, Urine 1.005 (1.002-1.030); Urine Bilirubin Dipstick Negative (Negative); Urine Clarity Clear (Clear); Urine Urobilinogen Normal (Normal)
--- NOTE | 2023-07-13 10:35 | CT_ITS ---
STUDY: CTA ABDOMEN WITH CONTRAST REASON FOR EXAM: Female, 63 years old. Right flank pain RADIATION DOSAGE (If Supplied By Facility): CTDIvol = ( 19.63 ) mGy, DLP = ( 412.04 ) mGycm TECHNIQUE: Transaxial images were obtained post I.V. administration of IV 100mL Isovue-[id number], and oral contrast. Sagittal and coronal images were reconstructed. 3-D images were reconstructed. Individualized dose optimization techniques were used for this CT. COMPARISON: Comparison is made with prior study done earlier in the day. FINDINGS: The visualized lung bases are unremarkable. The visualized portions of the heart are within normal limits. Normal liver. Normal gallbladder and extrahepatic biliary system. Normal spleen. Normal pancreas. Normal bilateral adrenal glands. Normal right kidney. Normal left kidney. There is a small hiatal hernia. Normal small intestine. There are scattered colonic diverticula consistent with diverticulosis. The appendix is visualized and appears normal. Normal abdominal aorta. Normal inferior vena cava. Normal retroperitoneum. Normal abdominal wall. There are mild degenerative changes of the visualized lumbar spine. CT/CTA Abdomen W/WO Contrast IMPRESSION: No acute abnormality is seen. Electronically Signed: Donnell Duval MD at 11:05 EST ,
[2023-07-13 10:44] LABS: AST(SGOT) 22 U/L (15-37); Alanine Aminotransfer ALT/SGPT 22 U/L (13-56); Albumin, Serum 4.3 g/dL (3.2-5.0); Alkaline Phosphatase 93 U/L (45-117); Bilirubin, Direct 0.22 mg/dL (0.00-0.30); Globulin 3.6 g/dL (2.2-4.2); Lipase 53 U/L (13-75); Protein, Total 7.9 g/dL (6.4-8.2)
[2023-07-13 10:48] LABS: Red Blood Cells-Urine 0-5 SEEN /hpf (0-5); Squamous Epithelial Cells - UA 0-5 SEEN /hpf (5-10); White Blood Cells 0-5 SEEN /hpf (0-5)
[2023-07-13 11:14] LABS: Lactic Acid 1.1 mmol/L (0.4-1.9)
[2023-07-13 11:55] VITALS: BP 152/74; PULSE 87; RESP 16; O2SAT 98
== END 2023-07-13 11:56 | disposition home or self-care (01) ==
PROVIDERS: Emergency Provider Student in an Organized Health Care Education/Training Program; PCP Internal Medicine; Visit Provider Student in an Organized Health Care Education/Training Program
DX: R10.9 Unspecified abdominal pain (principal)
CPT/HCPCS: 74175; 74176; 80048; 80076; 81001; 83605; 83690; 85025; 99283; J7030; Q9967; A4216; J2405

== ENCOUNTER 2024-02-25 23:33 | Emergency (ER) | payer BC, OTHER, SELFPAY ==
[2024-02-25 23:33] VITALS: BP 117/79; PULSE 96; RESP 28; TEMP 36; O2SAT 99; BMI 22.8
[2024-02-25 23:37] VITALS: PULSE 87; RESP 16
[2024-02-25] MEDS: Ipratropium/Albuterol Sulfate 3 ML AMPUL.NEB INHALATION (23:37)
[2024-02-25] MEDS: Albuterol 2.5 MG/3 ML VIAL.NEB. INHALATION (23:37)
[2024-02-25] MEDS: 0.9% Normal Saline (1000mL) 1,000 ML 999 ML IV (23:55)
[2024-02-25 23:56] VITALS: O2SAT 98
[2024-02-25 23:58] LABS: Absolute Lymphocyte Count 1.76 X10^3/uL (0.83-4.51); Absolute Neutrophil Count 3.2 X10^3/uL (2.0-7.7); Basophil# 0.09 X10^3/uL; Basophil% 1.5 % (0-1); Eosinophil# 0.28 X10^3/uL; Eosinophils% 4.7 % (0-5); Hematocrit 44.4 % (37-47); Hemoglobin 14.5 g/dL (12.0-15.0); Lymphocyte # 1.76 X10^3/ul (0.83-4.51); Lymphocyte % 29.6 % (19-41); Mean Corp Hgb Conc 32.7 g/dL (32-36); Mean Corpuscular Hgb 31.5 pg (27.0-32.0); Mean Corpuscular Volume 96.5 fL (81-99); Mean Platelet Vol. 9.2 fl (6.2-12.0); Monocyte# 0.58 X10^3/uL; Monocyte% 9.8 % (0-10); NRBC Flagged by Analyzer 0 % (0-5); Neutrophil # 3.22 X10^3/uL (2.7-7.7); Neutrophil % 54.2 % (47-70); Platelet Count 320 K/mm3 (150-450); RBC Distribution Width CV 11.9 % (11.6-14.6); RBC Distribution Width SD 42.2 fl (35.1-43.9); White Blood Count 5.9 K/mm3 (4.4-11.0)
--- NOTE | 2024-02-26 | RAD_ITS ---
EXAM: XR CHEST, 2 VIEWS CLINICAL INDICATION: CP TECHNIQUE: Frontal and lateral views of the chest. COMPARISON: Single view chest 09/01/2021 FINDINGS: LUNGS AND PLEURAL SPACES: Unremarkable. No consolidation or edema. No pneumothorax. No effusion. HEART: Unremarkable. Cardiac silhouette not enlarged. MEDIASTINUM: Central airways and mediastinal contour are unremarkable. BONES/JOINTS: Unremarkable. No acute fracture. SOFT TISSUES: Unremarkable. RAD/Chest PA and Lateral IMPRESSION: No radiographic evidence of acute cardiopulmonary disease. Electronically Signed: Diego Oliver MD at 0:38 EDT ,
[2024-02-26] MEDS: predniSONE 20 MG Tablet 60 MG PO (00:06)
[2024-02-26] MEDS: LORazepam 2 MG/ML Syringe 1 MG IV (00:17)
[2024-02-26 00:18] LABS: Anion Gap 6 (5-15); BUN 14 mg/dL (7-18); BUN/Creat Ratio 18.4 RATIO (10-20); Calcium,Total 8.9 mg/dL (8.5-10.1); Chloride 110 mmol/L (98-107); Creatinine, Serum 0.76 mg/dL (0.55-1.02); EST Glomerular Filtration Rate 81 mL/min (>60); Est Glom Filt Rate - Afr Amer 98 mL/min (>60); Estimated Creatinine Clearance 75.44 ml/min; Glucose 106 mg/dL (74-106); Potassium 3.6 mmol/L (3.5-5.1); Sodium Level 141 mmol/L (136-145); Troponin-I HS 4 pg/mL (3.0-54.0)
[2024-02-26 00:33] VITALS: BP 158/93; PULSE 96; RESP 19; O2SAT 95
--- NOTE | 2024-02-26 00:39 | EDS_ITS ---
HPI History of Present Illness Chief Complaint: Shortness of Breath Narrative Narrative: Patient is a 63-year-old female past medical history of panic attacks, anxiety, asthma, GERD who presented to the emergency department with a chief complaint of shortness of breath. According to the patient she states that she has been feeling well overall she states that she has had some shortness of breath and has been using her inhaler at home. States that this evening she use her inhaler right before bed and noted that when she laid down she all of a sudden developed difficulty breathing and tried to use an inhaler again this did not help prompting her to come here for further evaluation management. Patient denies any history of blood clots denies any recent travel history denies any recent sick contacts. Denies any recent steroid use. [facility] Medical History Panic attack Asthma GERD (gastroesophageal reflux disease) Anxiety Home Medications ?Medication ?Instructions ?Recorded ?Last Taken ?Type cholecalciferol (vitamin D3) 10 10 mcg PO DAILY 03/23/21 Unknown History mcg (400 unit) capsule (Vitamin D3) zinc 100 mg tablet 100 mg PO DAILY 03/23/21 Unknown History alpha lipoic acid 100 mg capsule 100 mg PO DAILY 07/29/23 Unknown History ascorbate calcium (vitamin C) 500 500 mg PO DAILY 07/29/23 Unknown History mg tablet levalbuterol tartrate 45 1 puff inhalation Q4-6H PRN 07/29/23 Unknown History mcg/actuation aerosol inhaler shortness of breath or wheezing omega 9-rce-kwu-fish oil 60 mg-90 1 cap PO DAILY 07/29/23 Unknown History mg-500 mg capsule (Fish Oil) turmeric 400 mg capsule mg PO 07/29/23 Unknown History prednisone 50 mg tablet 50 mg PO DAILY 5 days #5 tabs 02/26/24 Unknown Rx Allergy/AdvReac Type Severity Reaction Status Date / Time No Known Allergies Allergy Verified 02/25/24 23:34 Family History Mother Diabetes Surgical History History of appendectomy Social History household members: spouse Smoking Status: Never smoker alcohol intake: never substance use type: does not use ROS ROS ED ROS Narrative Constitutional: Denies any fevers, chills, headaches, lightheadedness, dizziness Eyes: Denies double vision blurry vision changes vision Cardiovascular: Denies chest pain or palpitations Respiratory: Complains of shortness of breath as noted above and wheezing denies any coughing or sputum production Abdomen: Denies abdominal pain nausea vomit diarrhea : Denies any urinary symptoms Neurological: Denies numbness, weakness, tingling Skin: Denies rashes or lesions EXAM Physical Exam Narrative Exam Narrative: General: Patient lying in bed did appear to be short of breath breathing treatment was already started prior to my evaluation Head: Atraumatic, normocephalic Eyes: PERRL bilaterally, EOMI bilaterally, no conjunctival injection noted Neck: Soft, supple, trachea midline Cardiovascular: Regular rate and rhythm no murmurs gallops rubs noted Respiratory: Patient had diffuse end expiratory wheezing on exam Abdomen: Soft, nondistended, nontender to palpation Extremities: Radial pulses +2/4 in the bilateral per extremities, no pedal edema no exam, +5/5 strength noted in the bilateral upper and lower extremities Neurological: Patient is following commands knew that she was at [facility] year is 2023 Skin: Warm, dry, intact Const Vital Signs: 02/25/24 23:33 02/25/24 23:33 02/25/24 23:37 Temperature 96.8 F L Temperature Source Axillary Pulse Rate 96 87 Respiratory Rate 28 H 16 Respiratory Effort Short of Breath Labored Respiratory Depth Shallow Respiratory Pattern Tachypnea Blood Pressure 117/79 Blood Pressure Mean 91 Pulse Ox 99 Oxygen Delivery Method Room Air Room Air 02/25/24 23:56 02/26/24 00:33 02/26/24 01:00 Temperature Temperature Source Pulse Rate 96 93 Respiratory Rate 19 H 19 H Respiratory Effort Respiratory Depth Respiratory Pattern Blood Pressure 158/93 H 155/80 H Blood Pressure Mean 114 105 Pulse Ox 98 95 97 Oxygen Delivery Method Room Air Room Air Room Air MDM MDM MDM Narrative Medical decision making narrative: Patient is a 63-year-old female who presented to the emergency department the chief complaint of shortness of breath. Patient was given breathing treatment prior to my evaluation on the differential diagnose includes but not limited to asthma exacerbation, upper respiratory factor second viral etiology, pneumonia, ACS. Once workup is obtained reviewed she will be reevaluated. Patient be given oral prednisone. Patient CBC reviewed and showed no evidence of leukocytosis white blood count normal at 5.9, hemoglobin stable 14.5, platelet count normal at 320. Patient's sodium normal at 141, potassium normal 3.6, creatinine normal at 0.76. Patient's calcium normal at 8.9, troponin normal at 4. Patient's EKG reviewed and independently interpreted by myself which showed sinus rhythm with a rate of 96 bpm. proBNP normal at 18. Patient's chest x-ray reviewed and interpreted by myself as well as radiology showed no acute cardiopulmonary process. Patient tested negative for COVID flu and RSV. On reevaluation the patient she is feeling significantly improved from when she arrived she would like to go home at this point time. Patient was advised to take the steroid starting tomorrow as prescribed and follow-up with her primary care physician outpatient setting. Patient was advised to return with worsening symptoms or other concerns. Patient states that she has plenty of her albuterol at home. All question concerns answered she was discharged home in stable condition. Lab Data Labs: Laboratory Results - last 24 hr 02/25/24 23:42 WBC 5.9 RBC 4.60 Hgb 14.5 Hct 44.4 MCV 96.5 MCH 31.5 MCHC 32.7 RDW Std Deviation 42.2 RDW Coeff of Fabrice 11.9 Plt Count 320 MPV 9.2 Immature Gran % (Auto) 0.200 Neut % (Auto) 54.2 Lymph % (Auto) 29.6 [place] % (Auto) 9.8 Eos % (Auto) 4.7 Baso % (Auto) 1.5 H Absolute Neuts (auto) 3.2 Absolute Lymphs (auto) 1.76 Nucleated RBC % 0 Sodium 141 Potassium 3.6 Chloride 110 H Carbon Dioxide 25.0 Anion Gap 6 BUN 14 Creatinine 0.76 Estim Creat Clear Calc 75.44 Est GFR (MDRD) Af Amer 98 Est GFR (MDRD) Non-Af 81 BUN/Creatinine Ratio 18.4 Glucose 106 Calcium 8.9 Troponin I High Sens 4 B-Natriuretic Peptide 18.1 Radiography Diagnostic Testing: Clinical Impression(s) from Imaging Studies Chest X-Ray 02/26/24 00:00 IMPRESSION: No radiographic evidence of acute cardiopulmonary disease. Electronically Signed: Diego Oliver MD at 0:38 EDT , Discharge Plan Triage Chief Complaint: Shortness of Breath ED Provider: Mariano Murillo Dx/Rx/DC Orders Clinical Impression: Asthma exacerbation Prescriptions: New prednisone 50 mg tablet 50 mg PO DAILY 5 Days Qty: 5 0RF No Action levalbuterol tartrate 45 mcg/actuation HFA aerosol inhaler 1 puff inhalation Q4-6H PRN (Reason: shortness of breath or wheezing) ascorbate calcium (vitamin C) 500 mg tablet 500 mg PO DAILY turmeric 400 mg capsule PO alpha lipoic acid 100 mg capsule 100 mg PO DAILY omega 7-afl-avi-fish oil [Fish Oil] 60-90-500 mg capsule 1 cap PO DAILY zinc 100 mg Tablet 100 mg PO DAILY cholecalciferol (vitamin D3) [Vitamin D3] 10 mcg (400 unit) Capsule 10 mcg PO DAILY Primary Care Provider: Jennifer Pittman Referrals: Jennifer Pittman MD [Primary Care Provider] - Activity Restrictions/Additional Instructions: Take steroids as prescribed. Follow with your primary care physician outpatient setting. Return with worsening symptoms or any other concerns. Print Language: Chinese Disposition Disposition: Home, Self Care
[2024-02-26 01:00] VITALS: BP 155/80; PULSE 93; RESP 19; O2SAT 97
[2024-02-26 01:38] LABS: BNP,B-Type NATRIURETIC PEPTIDE 18.1 pg/mL (0-100)
[2024-02-26 02:00] VITALS: BP 145/79; PULSE 92; RESP 18; O2SAT 97
[2024-02-26 02:01] VITALS: BP 145/79; PULSE 92; RESP 18; TEMP 36.9; O2SAT 97
== END 2024-02-26 02:06 | disposition home or self-care (01) ==
PROVIDERS: Emergency Provider Emergency Medicine; PCP Internal Medicine; Visit Provider Emergency Medicine
DX: J45.901 Unspecified asthma with (acute) exacerbation (principal); F41.9 Anxiety disorder, unspecified; K21.9 Gastro-esophageal reflux disease without esophagitis
CPT/HCPCS: 71046; 80048; 83880; 84484; 85025; 87631; 93005; 94640; 96361; 96374; 99285; J7030; A4216

== ENCOUNTER 2024-09-26 10:12 | Emergency (ER) | payer MEDICARE, OTHER, SELFPAY ==
[2024-09-26 10:13] VITALS: BP 183/100; PULSE 79; RESP 23; TEMP 36.2; O2SAT 100; BMI 23.0
--- NOTE | 2024-09-26 10:30 | CT_ITS ---
PROCEDURE: CTA CHST, ABD, PEL W AND/OR WO 09/26/2024 REASON FOR EXAM: CHEST PAIN, BACK PAIN TECHNIQUE: Chest abdomen and pelvis CT with intravenous contrast. Coronal and Sagittal reconstruction series were provided. One or more dose reduction techniques were used (e.g., Automated exposure control, adjustment of the mA and/or kV according to patient size, use of iterative reconstruction technique. PATIENT PREPARATION: Per protocol ORAL CONTRAST TYPE: None. CONTRAST: 100 cc Isovue 370 RADIATION DOSE SUMMARY: DLP: 848 mGycm COMPARISON: None FINDINGS: CHEST: Lines and tubes: None Mediastinum: Unremarkable Heart: Unremarkable Thoracic Aorta: Intact Lungs and Airways: Clear Pleura: There is no pneumothorax or effusion Bones: There is a 25% compression deformity at T8. Other: There is no visible pulmonary embolus. Main pulmonary artery Hounsfield units = 520. LV/RV = 0.8. ABDOMEN AND PELVIS: Liver: Unremarkable Gallbladder: Contracted Spleen: Unremarkable Pancreas: Unremarkable Adrenals: Unremarkable Kidneys: Unremarkable Bladder: Bladder is distended to 11 cm. Reproductive Organs: Unremarkable Bowel: There is a moderate stool load. The small-bowel loops are not distended. Surgical clips are noted consistent with prior appendectomy. Vasculature: Unremarkable Peritoneum / Retroperitoneum: There is no free air or free fluid Bones: There is no acute bony abnormality. Levocurvature of the lumbar region is noted, which can indicate spasm. The thoracic aorta is normal-sized, measuring 3 point 2 cm in the ascending aorta, 2.2 cm in the descending aorta. Arch vessel origins are normal in appearance. The celiac and superior mesenteric artery origins are patent. The right and left renal artery origins are widely patent. The inferior mesenteric artery origin is patent. The iliac bifurcation and internal and external iliacs are widely patent. There is no significant atherosclerosis. CT/CTA Chst, Abd, Pel W and/or WO IMPRESSION: There is no evidence of pulmonary embolus. Negative thoracic and abdominal aorta. There is a 25% compression deformity at T8, age-indeterminate. MRI or bone sca n could be helpful to determine chronicity if clinically indicated. The bladder is distended to 11 cm. There is levocurvature of the lumbar region, which can indicate spasm. Reading Location: [facility]
--- NOTE | 2024-09-26 10:37 | EX.ED.DYSGE1 ---
HPI History of Present Illness Chief Complaint: Syncope Informant: patient and spouse/S.O. Narrative Narrative: Presents by private vehicle spouse was driving felt lightheaded pain in her back pain in her chest. No syncopal episode. No cardiac history no family history of MIs young age. No tobacco history. . From nursing and triage her heart rate was 190 on the monitor and shortly after it went back to the normal rate. No history of dysrhythmias. She reports she still feels lightheaded with a heart rate in the 90s currently. No dizzy spinning sensation. States tingling in both fingers. Reports history of asthma and anxiety. Feels tightness in her chest states tried her inhaler with no relief. Prior similar symptoms: No PFSH PFSH Medical History Panic attack Asthma GERD (gastroesophageal reflux disease) Anxiety Home Medications ?Medication ?Instructions ?Recorded ?Last Taken ?Type levalbuterol tartrate 45 1 puff inhalation Q4-6H PRN 07/29/23 09/26/24 History mcg/actuation aerosol inhaler shortness of breath or wheezing budesonide-formoterol HFA 80 1 inh inhalation BID 09/26/24 09/26/24 History mcg-4.5 mcg/actuation aerosol inhaler (Symbicort) multivitamin (Daily Multi-Vitamin 1 tab PO DAILY 09/26/24 09/26/24 History tablet) Allergy/AdvReac Type Severity Reaction Status Date / Time No Known Allergies Allergy Verified 02/25/24 23:34 Family History Mother Diabetes Surgical History History of appendectomy Social History household members: spouse Smoking Status: Never smoker alcohol intake: never substance use type: does not use ROS ROS ED Constitutional Constitutional ED: Denies chills, fever(s) or sweats ENT ENT ED: Denies sore throat Cardiovascular Cardiovascular: Reports chest pain; Denies leg edema, palpitations or racing heartbeat Respiratory/Chest Respiratory/Chest: Denies cough, dyspnea or dyspnea on exertion Gastrointestinal Gastrointestinal: Denies abdominal pain, diarrhea, nausea or vomiting Genitourinary Genitourinary ED: Denies dysuria, hematuria or urinary frequency Musculoskeletal Musculoskeletal: Reports back pain; Denies extremity pain or neck pain Integumentary Denies rash or wounds Neurologic Neurologic: Denies headache(s), paresthesias or weakness EXAM Physical Exam Const Vital Signs: 09/26/24 10:13 09/26/24 10:37 09/26/24 11:13 Temperature 97.1 F L Temperature Source Oral Pulse Rate 79 80 Respiratory Rate 23 H 18 Respiratory Effort Labored Respiratory Pattern Tachypnea Blood Pressure 183/100 H 151/90 H Blood Pressure Mean 127 110 Pulse Ox 100 97 Oxygen Delivery Method Room Air Room Air 09/26/24 12:12 09/26/24 13:00 09/26/24 13:42 Temperature 98 F Temperature Source Pulse Rate 78 73 81 Respiratory Rate 14 14 18 Respiratory Effort Respiratory Pattern Blood Pressure 138/76 H 123/78 H 132/77 H Blood Pressure Mean 96 93 95 Pulse Ox 99 100 98 Oxygen Delivery Method Room Air Room Air Positive well nourished and well developed Constitutional Narrative: Anxious, nontoxic General Appearance ED: well developed HEENT Reports moist mucous membranes normocephalic and atraumatic Eyes General Eye ED: Yes normal appearance of both eyes Neck full ROM Chest Wall Chest: Negative for tenderness Resp normal respiratory effort and normal air movement Effort and Inspection: symmetric chest movement; Negative for respiratory distress Cardio regular rate, regular rhythm and no murmurs Peripheral Pulses: pulses 2+ throughout GI normal to inspection, nondistended, normoactive bowel sounds and non-tender Palpation: Negative for guarding or rebound tenderness present Extremity normal to inspection General Extremety ED: Negative for edema or tenderness General Extremity: Negative for edema Neuro oriented x3, CN's II-XII intact bilaterally and no sensory deficits noted Sensorium / Orientation: awake and alert Skin no rashes or lesions noted and no wounds MDM MDM MDM Narrative Medical decision making narrative: Interventions / MDM: Differential diagnosis: Chest pain, back pain, age-indeterminate T8 fracture, tachycardia Diagnosis considered but do not suspect: Aortic dissection however CT negative. ACS however EKG and cardiac enzymes negative. PE however CT negative. My EKG interpretation: Sinus rate of 79, no ST or T wave changes. QTc 426. Imaging independently reviewed and interpreted by myself: CT angiogram chest abdomen pelvis, no dissection no PE no intra-abdominal process. Age-indeterminate T8 compression fracture of 25%. External documents reviewed: N/A Test considered but not ordered:N/A ED course: Patient appears anxious blood pressure 183/100 during my eval. Heart rate 80s and 90s on the monitor. Reporting back pain chest pain bilateral arm tingling. Ordered for Ativan. Patient be sent straight to CT for dissection scans. Cardiac workup labs ordered. 1315: Patient's CT angiogram chest abdomen pelvis negative for any acute process. Did report distended bladder however she urinated after CT scan. However did note indeterminate T8 compression fracture 25%. She reports she would have pain in the area for last 2 to 3 months followed by chiropractor. Discussed findings with the patient. Initial troponin was negative. Clinic was feeling better on reevaluation. Was awaiting delta troponin which is return normal at 7. Unclear on her initial tachycardia 190 in triage I spoke with the nurse, he had a quick read on it possible double read however I was able to set up 40-hour Holter monitor through the ED. She is reassured on the findings. Clinically was feeling much better. Outpatient follow-up given with cardiology and spine. Strict return precautions. All questions were answered. Re-evaluation: stable Disposition discussed with patient/family/significant other: Patient and spouse Case discussed with consulting clinician: N/A This note was generated with [employer] dictation software. It may contain incorrect words, spelling, and punctuation that were not noted in checking the note before signing. Lab Data Attestation: I reviewed the patient's lab results. Labs: Laboratory Results - last 24 hr 09/26/24 09/26/24 10:25 12:27 WBC 4.6 RBC 4.77 Hgb 15.4 H Hct 45.0 MCV 94.3 MCH 32.3 H MCHC 34.2 RDW Std Deviation 42.9 RDW Coeff of Fabrice 12.3 Plt Count 305 MPV 9.3 Immature Gran % (Auto) 0.200 Neut % (Auto) 58.6 Lymph % (Auto) 25.2 [place] % (Auto) 12.3 H Eos % (Auto) 2.4 Baso % (Auto) 1.3 H Absolute Neuts (auto) 2.7 Absolute Lymphs (auto) 1.15 Nucleated RBC % 0 PT 12.0 INR 0.9 APTT 23.3 L Sodium 139 Potassium 4.0 Chloride 100 Carbon Dioxide 23.4 Anion Gap 15 BUN 16 Creatinine 0.87 Estim Creat Clear Calc 65.03 Est GFR (MDRD) Non-Af 74 BUN/Creatinine Ratio 18.3 Glucose 100 H Calcium 10.5 Troponin T High Sens 6 Troponin T Hi Sens 2 Hr 7 TSH 1.460 Radiography Diagnostic Testing: Clinical Impression(s) from Imaging Studies Chest/Abdomen/Pelvis CTA 09/26/24 10:30 IMPRESSION: There is no evidence of pulmonary embolus. Negative thoracic and abdominal aorta. There is a 25% compression deformity at T8, age-indeterminate. MRI or bone scan could be helpful to determine chronicity if clinically indicated. The bladder is distended to 11 cm. There is levocurvature of the lumbar region, which can indicate spasm. Reading Location: [facility] Critical Care Time Critical Care Time: Yes Critical care time (excluding procedures): 30-74 minutes, Discussing w/Patient &/or Family/Pediatric Registered Nurse, Discussing w/Consultants, Arranging Admission or Transfer, Performing Direct Patient Care at Bedside and - (30 minutes) Discharge Plan Triage Chief Complaint: Syncope ED Provider: Kwabena Hollingsworth Dx/Rx/DC Orders Clinical Impression: Near syncope, Palpitations, Tachycardia, Chest pain, Compression fracture of T8 vertebra Instructions: Compression Fx, ED Chest Pain, Uncertain Cause, ED Palpitations Prescriptions: No Action levalbuterol tartrate 45 mcg/actuation HFA aerosol inhaler 1 puff inhalation Q4-6H PRN (Reason: shortness of breath or wheezing) budesonide-formoterol [Symbicort] 80-4.5 mcg/actuation HFA aerosol inhaler 1 inh inhalation BID multivitamin [Daily Multi-Vitamin] Tablet 1 tab PO DAILY Primary Care Provider: Jennifer Pittman Referrals: Miah Moscoso MD [Med Staff - Active Staff] - 1-2 Weeks Jennifer Pittman MD [Primary Care Provider] - Mary Zuniga MD [Med Staff - Active Staff] - 1 Week Activity Restrictions/Additional Instructions: Cardiac workup negative. CT angiogram chest abdomen pelvis negative. You provided 48-hour Holter monitor. Avoid caffeine products. Follow-up with cardiology. Age indeterminant T8 compression fracture of 25%. He had symptoms last 2 to 3 months. Follow-up with Dr. Brown for outpatient evaluation. Print Language: [place] Disposition Disposition: Home, Self Care Discharge Date/Time: 09/26/24 13:49
[2024-09-26 10:49] LABS: Absolute Lymphocyte Count 1.15 X10^3/uL (0.83-4.51); Absolute Neutrophil Count 2.7 X10^3/uL (2.0-7.7); Basophil# 0.06 X10^3/uL; Basophil% 1.3 % (0-1); Eosinophil# 0.11 X10^3/uL; Eosinophils% 2.4 % (0-5); Hemoglobin 15.4 g/dL (12.0-15.0); Lymphocyte # 1.15 X10^3/ul (0.83-4.51); Lymphocyte % 25.2 % (19-41); Mean Corp Hgb Conc 34.2 g/dL (32-36); Mean Corpuscular Hgb 32.3 pg (27.0-32.0); Mean Corpuscular Volume 94.3 fL (81-99); Mean Platelet Vol. 9.3 fl (6.2-12.0); Monocyte# 0.56 X10^3/uL; Monocyte% 12.3 % (0-10); NRBC Flagged by Analyzer 0 % (0-5); Neutrophil # 2.67 X10^3/uL (2.7-7.7); Neutrophil % 58.6 % (47-70); Platelet Count 305 K/mm3 (150-450); RBC Distribution Width CV 12.3 % (11.6-14.6); RBC Distribution Width SD 42.9 fl (35.1-43.9); Red Blood Count 4.77 M/mm3 (4.2-5.4); White Blood Count 4.6 K/mm3 (4.4-11.0)
[2024-09-26] MEDS: LORazepam 2 MG/ML Syringe 1 MG IV (10:49)
[2024-09-26 10:55] LABS: International Normalized Ratio 0.9
[2024-09-26 10:56] LABS: Partial Thromboplast Time 23.3 Seconds (24.1-36.2)
[2024-09-26 11:13] VITALS: BP 151/90; PULSE 80; RESP 18; O2SAT 97
[2024-09-26 11:26] LABS: Anion Gap 15 (5-15); BUN 16 mg/dL (4-19); BUN/Creat Ratio 18.3 RATIO (10-20); Calcium,Total 10.5 mg/dL (7.6-11.0); Carbon Dioxide 23.4 mmol/L (21.0-32.0); Chloride 100 mmol/L (98-108); Creatinine, Serum 0.87 mg/dL (0.70-1.20); EST Glomerular Filtration Rate 74 (>60); Estimated Creatinine Clearance 65.03 ml/min (50-250); Glucose 100 mg/dL (70-99); Sodium Level 139 mmol/L (133-145); Troponin T High Sensitivity 6 ng/L (<=14)
[2024-09-26 12:12] VITALS: BP 138/76; PULSE 78; RESP 14; O2SAT 99
[2024-09-26 13:00] VITALS: BP 123/78; PULSE 73; RESP 14; O2SAT 100
[2024-09-26 13:11] LABS: Troponin T High Sens 2 HR 7 ng/L (<=14)
[2024-09-26 13:42] VITALS: BP 132/77; PULSE 81; RESP 18; TEMP 36.6; O2SAT 98
== END 2024-09-26 13:49 | disposition home or self-care (01) ==
PROVIDERS: Emergency Provider Emergency Medicine; PCP Internal Medicine; Visit Provider Emergency Medicine
DX: R55 Syncope and collapse (principal); M48.54XA Collapsed vertebra, not elsewhere classified, thoracic region, initial encounter for fracture; R07.9 Chest pain, unspecified; R00.0 Tachycardia, unspecified; R00.2 Palpitations; J45.909 Unspecified asthma, uncomplicated; K21.9 Gastro-esophageal reflux disease without esophagitis
CPT/HCPCS: 71275; 74174; 80048; 84443; 84484; 85025; 85610; 85730; 93005; 96374; 99284; Q9967; A4216

== ENCOUNTER → 2024-09-26 | Outpatient (CLI) | payer MEDICARE, OTHER, SELFPAY | END | disposition home or self-care (01) | LOC: PSN 12:48 | PROVIDERS: PCP Internal Medicine; Visit Provider Emergency Medicine | DX: R00.0 Tachycardia, unspecified (principal) | CPT/HCPCS: 93225; 93226 ==

== ENCOUNTER 2024-10-02 10:07 | Emergency (ER) | payer MEDICARE, OTHER, SELFPAY ==
[2024-10-02 10:11] VITALS: BP 176/97; PULSE 80; RESP 18; TEMP 36.5; O2SAT 98; BMI 22.5
[2024-10-02 10:13] VITALS: BP 159/95; PULSE 88; RESP 18; O2SAT 100
--- NOTE | 2024-10-02 10:13 | EKG12_ITS ---
Test Reason : CP Blood Pressure : */* mmHG Vent. Rate : 70 BPM Atrial Rate : 70 BPM P-R Int : 142 ms QRS Dur : 90 ms QT Int : 388 ms P-R-T Axes : 82 69 72 degrees QTcB Int : 419 ms Normal sinus rhythm Normal ECG Confirmed by Damion Armenta ([id number]), editor greeting card KEITH SHANE ([id number]) on 10/07/2024 12:06:29 PM Referred By: ZAIRE/AMARILIS Confirmed By: Damion Armenta
--- NOTE | 2024-10-02 10:21 | ED.VIS.CHEST ---
HPI History of Present Illness Chief Complaint: Chest Pain Informant: patient and spouse/S.O. Onset/Context/Timing Onset: Today and Hours Activity at onset: gradual Timing: Continuous Quality: Positive for Pressure Location: Substernal Current Severity: Mild Maximum Severity: Mild Worsened By: Nothing Relieved By: Nothing Associated Symptoms: Negative for Nausea, Vomiting, Diaphoresis, Dyspnea, Cough, Fever, Lightheadedness, Acid Reflux or Palpitations Narrative Narrative: 64-year-old female history of compression fracture, anxiety and asthma. Was seen here on the and extensive cardiac workup including 2 troponins and CTA of her chest and abdomen all of which was negative. Says she feels like she has pressure in her chest started an hour or so ago. Said she felt fine when she first woke up. No history of DVT or PE. No leg pain or swelling. No recent travel or surgery. No recent hospitalization. Also recently been on a security monitor and has not had the results as of yet. That was done this past week. Prior Similar Symptoms: Yes Recent Illness/Hospitalization: No CVD Risk Factors: Negative for Hypertension, Diabetes or Hypercholesterolemia PE Risk Factors: Negative for Recent Travel/Surgery, Recent Immobilization, Prior DVT or PE, Cancer or OCP + Smoking + >/=35 TAD Risk Factors: Negative for Marfan's Syndrome [facility] Medical History Panic attack Asthma GERD (gastroesophageal reflux disease) Anxiety Home Medications ?Medication ?Instructions ?Recorded ?Last Taken ?Type levalbuterol tartrate 45 1 puff inhalation Q4-6H PRN 07/29/23 09/26/24 History mcg/actuation aerosol inhaler shortness of breath or wheezing budesonide-formoterol HFA 80 1 inh inhalation BID 09/26/24 10/02/24 History mcg-4.5 mcg/actuation aerosol inhaler (Symbicort) multivitamin (Daily Multi-Vitamin 1 tab PO DAILY 09/26/24 10/02/24 History tablet) Allergy/AdvReac Type Severity Reaction Status Date / Time No Known Allergies Allergy Verified 10/02/24 10:11 Family History Mother Diabetes Surgical History History of appendectomy Social History household members: spouse Smoking Status: Former smoker alcohol intake: never substance use type: does not use ROS ROS ED ROS Narrative Chest pressure. Denies recent illness. No exertional chest pain or exertional dyspnea. Constitutional Constitutional ED: Denies chills or fever(s) Eyes Eyes: Reports none ENT ENT ED: Denies ear pain Cardiovascular Cardiovascular: Reports as per HPI and chest pain Respiratory/Chest Respiratory/Chest: Denies cough or dyspnea Gastrointestinal Gastrointestinal: Denies abdominal pain, constipation, diarrhea, melena, nausea or vomiting Genitourinary Genitourinary ED: Denies dysuria or hematuria Musculoskeletal Musculoskeletal: Denies arthralgias or back pain Integumentary Denies abscess Neurologic Neurologic: Denies headache(s) Psychiatric Psychiatric: Reports anxiety Endocrine Endocrinology: Denies cold intolerance Hematologic/Lymphatic Hematologic/Lymphatic: Denies easy bleeding or easy bruising Allergic/Immunologic Allergic/Immunologic ED: Denies mouth swelling, tongue swelling or urticaria EXAM Physical Exam Narrative Exam Narrative: Well-appearing 70-year-old female. Vital signs are stable afebrile. Pulse ox is 98 to 100% on room air. She seems anxious but otherwise no acute distress. at bedside. She is afebrile. She does not look septic or toxic. H EENT exam pupils round reactive light. Mytrex membranes. No facial droop. Normal speech. Neck nontender no JVD. No lymphadenopathy. Lungs clear to auscultation bilaterally. Heart regular rhythm rate about 80 no murmur. Chest wall and ribs nontender. No ecchymosis or bruising. No reproducible pain. Abdomen is soft and nontender. Moving all 4 extremities. 5 out of 5 turf manager strength. Dorsi plantarflexion intact. Calves are nontender without edema or cords. Equal symmetrical radial pulses. Normal range of motion. No edema. Back nontender. Neurologically she is awake alert. Answering questions following commands. Again appears anxious but otherwise her exam is benign. She has a few occasional PVCs on the monitor. Const Vital Signs: 10/02/24 10:11 10/02/24 10:13 10/02/24 10:15 Temperature 97.7 F L Temperature Source Oral Pulse Rate 80 88 Respiratory Rate 18 18 Respiratory Effort Short of Breath Blood Pressure 176/97 H 159/95 H Blood Pressure Mean 123 116 Pulse Ox 98 100 Oxygen Delivery Method Room Air Room Air 10/02/24 10:50 10/02/24 11:15 Temperature 97.5 F L Temperature Source Oral Pulse Rate 71 71 Respiratory Rate 22 H 20 H Respiratory Effort Blood Pressure 161/81 H 153/86 H Blood Pressure Mean 107 108 Pulse Ox 100 100 Oxygen Delivery Method Room Air Room Air Positive well nourished and well developed; Negative for obese, cachectic, contractures or unkempt General Appearance ED: well developed and NAD; Negative for unkempt, cachectic, contractures or pallor Nutritional Appearance: Negative for cachectic or obese HEENT Reports moist mucous membranes normocephalic and atraumatic Eyes PERRL and EOMs intact bilaterally General Eye ED: Negative for pale conjunctiva or scleral icterus Neck no lymphadenopathy, supple and no JVD General: Negative for tenderness Chest Wall inspection of chest normal and palpation of chest normal Chest: Negative for tenderness Resp normal respiratory effort and clear to auscultation bilaterally Effort and Inspection: Negative for respiratory distress Auscultation: Negative for rales, rhonchi, wheezes or diminished lung sounds Cardio regular rate, regular rhythm, S1 normal heart sound, S2 normal heart sound and no murmurs Rate: Negative for bradycardia or tachycardic Rhythm: Negative for abnormal rhythm Peripheral Pulses: pulses 2+ throughout GI normal to inspection, nondistended, normoactive bowel sounds, soft to palpation, non-tender, non-distended and no masses Back/Spine no CVA tenderness and no thoracic nor lumbar tenderness Extremity General Extremety ED: Negative for edema, pulses abnormal or tenderness General Extremity: Negative for edema or pulses abnormal Neuro oriented x3, CN's II-XII intact bilaterally and no sensory deficits noted Sensorium / Orientation: awake, alert, oriented to person, oriented to place and oriented to time; Negative for confused, lethargic or stuporous Motor Exam: strength 5/5 throughout Psych mental status grossly normal Appearance: Negative for unkempt Mood & Affect: anxious Skin no rashes or lesions noted and no wounds General Skin Exam: Negative for jaundice or pallor Rashes: No rashes noted Trauma: Negative for abrasion or laceration Heart Score History: Slightly/Non-Suspicious ECG: Normal Age: >/= 65 years Risk Factors: No Risk Factors Troponin: </= Normal Limit Score: 2 MDM MDM MDM Narrative Medical decision making narrative: 70-year-old female with atypical, nonexertional chest discomfort. May be secondary to anxiety. Recently was seen within the last week had a completely negative workup with 2 troponins and a CTA of her chest abdomen and pelvis. Exam is benign. She has occasional PVC. She undergo cardiac workup. I will see if I can find the results of her recent security monitor. Repeat exam around 10:45 PM patient is doing well. Awaiting final test results. We went over her CBC and chest x-ray and EKG. We went over I reviewed her security monitor interpretation from last week. And her prior labs and CAT scan. She has received a milligram of Ativan for anxiety. Repeat exam patient doing well at 12:28 PM. Her labs are good. Both troponins are negative. I do not think this is cardiac chest pain. She had a big workup less than a week ago and there is no signs of PE or dissection either. Some of this may be secondary to anxiety. History & Record Review Discussion w/independent historian: Patient Additional record(s) reviewed:: Prior inpatient record, Prior outpatient record, Prior ED visit and Prior labs Lab Data Attestation: I reviewed the patient's lab results. Lab results narrative: CBC shows normal white count of 5 H&H 14 and 43. Platelets 342. 2 view chest x-ray unremarkable. Chemistries are unremarkable. Gap 12. BUN and creatinine are 13 and 0.8. Glucose 103. Initial troponin 6. 2-hour troponin less than 6. Labs: Laboratory Results - last 24 hr 10/02/24 10/02/24 10:13 12:00 WBC 5.4 RBC 4.61 Hgb 14.9 Hct 43.5 MCV 94.4 MCH 32.3 H MCHC 34.3 RDW Std Deviation 42.7 RDW Coeff of Fabrice 12.2 Plt Count 342 MPV 9.2 Immature Gran % (Auto) 0.200 Neut % (Auto) 53.7 Lymph % (Auto) 30.5 [place] % (Auto) 12.3 H Eos % (Auto) 2.4 Baso % (Auto) 0.9 Absolute Neuts (auto) 2.9 Absolute Lymphs (auto) 1.66 Nucleated RBC % 0 Sodium 138 Potassium 4.2 Chloride 103 Carbon Dioxide 22.9 Anion Gap 12 BUN 13 Creatinine 0.88 Estim Creat Clear Calc 64.29 Est GFR (MDRD) Non-Af 73 BUN/Creatinine Ratio 15.0 Glucose 103 H Calcium 9.5 Troponin T High Sens 6 Troponin T Hi Sens 2 Hr < 6 Radiography Chest X-Ray - ED: 2 View, Read by ED Physician, Read by Radiologist, Heart, Lungs, Mediastinum, Bony Structures, No Acute Disease and Chronic Changes Diagnostic Testing: Clinical Impression(s) from Imaging Studies Chest X-Ray 10/02/24 10:25 IMPRESSION: NO ACUTE FINDINGS. Reading Location: [facility] Chest x-ray, 2 views, AP and lateral, interpreted both by myself and the radiologist shows no acute abnormality. Normal cardiac silhouette. Normal lung portillo. Chronic changes. Rhythm Strip Rhythm Strip: Sinus Rhythm Rate: 70 Ectopy: None and PVC(s) EKG Initial EKG: Attestation: I personally reviewed and interpreted this EKG as follows: Interpretation: Sinus Rhythm and No Acute Injury Pattern Comments: Normal sinus rhythm rate of 70 no acute signs of ischemia. No dysrhythmia. Discharge Plan Triage Chief Complaint: Chest Pain ED Provider: Angel Solis Dx/Rx/DC Orders Clinical Impression: Chest pain of uncertain etiology, Compression fracture of T8 vertebra, Anxiety Instructions: ED Anxiety Reaction, ED Chest Pain, Uncertain Cause Prescriptions: No Action levalbuterol tartrate 45 mcg/actuation HFA aerosol inhaler 1 puff inhalation Q4-6H PRN (Reason: shortness of breath or wheezing) budesonide-formoterol [Symbicort] 80-4.5 mcg/actuation HFA aerosol inhaler 1 inh inhalation BID multivitamin [Daily Multi-Vitamin] Tablet 1 tab PO DAILY Primary Care Provider: Jennifer Pittman Referrals: Jennifer Pittman MD [Primary Care Provider] - As soon as possible Activity Restrictions/Additional Instructions: Your labs, chest x-ray and EKG all look good. I do not think this is cardiac chest pain. Follow-up with your doctor for further evaluation. Discussed with them possible treatment for anxiety. Print Language: Georgian Disposition Disposition: Home, Self Care
--- NOTE | 2024-10-02 10:25 | RAD_ITS ---
PROCEDURE: CHEST PA AND LATERAL 10/02/2024 REASON FOR EXAM: CHEST PAIN TECHNIQUE: Frontal and lateral views of the chest. COMPARISON: 02/26/2024 FINDINGS: Hardware: None Heart: The heart size is normal. Mediastinum: The mediastinal contour is unremarkable. Lungs: The lungs are clear. Bones: Mild dextroscoliosis of the lower thoracic spine. RAD/Chest PA and Lateral IMPRESSION: NO ACUTE FINDINGS. Reading Location: [id number]
[2024-10-02 10:31] LABS: Absolute Lymphocyte Count 1.66 X10^3/uL (0.83-4.51); Absolute Neutrophil Count 2.9 X10^3/uL (2.0-7.7); Basophil# 0.05 X10^3/uL; Basophil% 0.9 % (0-1); Eosinophil# 0.13 X10^3/uL; Eosinophils% 2.4 % (0-5); Hematocrit 43.5 % (37-47); Hemoglobin 14.9 g/dL (12.0-15.0); Lymphocyte # 1.66 X10^3/ul (0.83-4.51); Lymphocyte % 30.5 % (19-41); Mean Corp Hgb Conc 34.3 g/dL (32-36); Mean Corpuscular Hgb 32.3 pg (27.0-32.0); Mean Corpuscular Volume 94.4 fL (81-99); Mean Platelet Vol. 9.2 fl (6.2-12.0); Monocyte# 0.67 X10^3/uL; Monocyte% 12.3 % (0-10); NRBC Flagged by Analyzer 0 % (0-5); Neutrophil # 2.92 X10^3/uL (2.7-7.7); Neutrophil % 53.7 % (47-70); Platelet Count 342 K/mm3 (150-450); RBC Distribution Width CV 12.2 % (11.6-14.6); RBC Distribution Width SD 42.7 fl (35.1-43.9); Red Blood Count 4.61 M/mm3 (4.2-5.4); White Blood Count 5.4 K/mm3 (4.4-11.0)
[2024-10-02] MEDS: Lorazepam 2 MG/ML WCH Syringe 1 MG IV (10:40)
[2024-10-02 10:50] VITALS: BP 161/81; PULSE 71; RESP 22; O2SAT 100
[2024-10-02 11:15] VITALS: BP 153/86; PULSE 71; RESP 20; TEMP 36.4; O2SAT 100
[2024-10-02 11:15] LABS: Anion Gap 12 (5-15); BUN 13 mg/dL (4-19); Calcium,Total 9.5 mg/dL (7.6-11.0); Carbon Dioxide 22.9 mmol/L (21.0-32.0); Chloride 103 mmol/L (98-108); Creatinine, Serum 0.88 mg/dL (0.70-1.20); EST Glomerular Filtration Rate 73 (>60); Estimated Creatinine Clearance 64.29 ml/min (50-250); Glucose 103 mg/dL (70-99); Potassium 4.2 mmol/L (3.3-5.1); Sodium Level 138 mmol/L (133-145); Troponin T High Sensitivity 6 ng/L (<=14)
[2024-10-02 12:22] LABS: Troponin T High Sens 2 HR < 6 ng/L (<=14)
[2024-10-02 12:28] VITALS: BP 147/81; PULSE 80; RESP 16; TEMP 36.4; O2SAT 99
--- NOTE | 2024-10-02 12:36 | ED.RN ---
support provided to pt at discharge. pt and agreeable to POC.
== END 2024-10-02 12:36 | disposition home or self-care (01) ==
PROVIDERS: Emergency Provider Emergency Medicine; PCP Internal Medicine; Visit Provider Emergency Medicine
DX: R07.9 Chest pain, unspecified (principal); M48.54XA Collapsed vertebra, not elsewhere classified, thoracic region, initial encounter for fracture; F41.9 Anxiety disorder, unspecified; Z87.891 Personal history of nicotine dependence; I49.3 Ventricular premature depolarization
CPT/HCPCS: 71046; 80048; 84484; 85025; 93005; 96374; 99284; A4216

== ENCOUNTER → 2024-12-20 | Outpatient (CLI) | payer MEDICARE, OTHER, SELFPAY ==
--- NOTE | 2024-12-20 08:56 | STEWCON_ITS ---
Reason For Study Reason For Study: UNSPECIFIED CHEST PAIN Stress Results Maximum Predicted HR: 155 bpm Target HR: 132 bpm % Maximum Predicted HR: 110 % DurationHeart Rate Stage (mm:ss) (bpm) BP Comment BASELINE 82 154/86 STAGE 1 3:00 115 170/102 STAGE 2 3:00 137 198/98 STAGE 3 3:00 166 192/90 STAGE 4 0:30 171 / 2 CC DEFINITY FOR TEST RECOVERY 97 158/84 Stress Duration: 9:30 mm:ss Maximum Stress HR: 171 bpm Baseline Echocardiogram Findings Stress Echo Wall motion Data Resting WM Intermediate WM Stress WM ECHO/Stress Test Echo W/Contrast Interpretation Summary Exercise stress echo. 64-year-old lady with a history of chest pain Stress EKG. Resting EKG demonstrated normal sinus rhythm with a rate of 86 bpm normal intervals are noted resting blood pressure is 154/86 mmHg. Patient exercised according to regular Misael protocol for 9-1/2 minutes attaining a maximum heart rate of 181 bpm which was 116% of maximum predicted heart rate the [facility] workload was 11.7 metabolic equivalents. At rest there were no ST or T wave changes noted suggest ischemia and at peak exercise upsloping ST changes only were noted but did not meet the criteria for ischemia. No clinical angina was noted no chest pain was noted occasional premature ventricular complexes were present. The peak blood pressur e was noted to be 198/98 mmHg. Stress echocardiogram. The resting and stress echocardiographic images were obtained with Definity enh ancement. The resting ejection fraction was 60%. At peak exercise there was thickening of all romano reduction of low ve ntricular cavity size and peaking of ejection fraction of 70% with no wall motion abnormalities present. Conclusion: Exercise stress echo with no EKG criteria for ischemia at a high workload. Good functional capacity. Ordering Physician: Damion Armenta Referring Physician: Damion Armenta Performed By: Brooklyn Zhong, LORETTA, RVT
== END | disposition home or self-care (01) ==
PROVIDERS: PCP Internal Medicine; Referring Provider Internal Medicine Cardiovascular Disease; Visit Provider Internal Medicine Cardiovascular Disease
DX: R07.9 Chest pain, unspecified (principal)
CPT/HCPCS: 93017; 93350; Q9957; A4216; C8928